=== PATIENT | female | born 1940 | race Caucasian/White ===

== ENCOUNTER 2017-06-02 19:02 | Inpatient (IN) | payer MEDICARE, BC, OTHER ==
[~2017-06-02] VITALS: Ht 162.6 cm; Wt 91.8 kg
[~2017-06-02 19:02] MED LIST: /CELE20CA PO; /ROPI5TA PO; ACET500C PO; CALCIUM/VIT D PO; CELE20TA PO; CHLORTHALIDONE PO; COZA25TA8 PO; DICY10CA2 PO; GLIM1TAB PO; JANUVIA PO; K-TA10TA PO; OMEP20TA7 PO; PREG100CA PO
[2017-06-02] MEDS ORDERED: GLIM2TAB PO (19:33)
[2017-06-02] MEDS ORDERED: KEFL500C17 PO (19:33)
[2017-06-02] MEDS ORDERED: ATOR1TAB21 PO (19:33)
[2017-06-02] MEDS ORDERED: PREG100CA PO (19:33)
[2017-06-02] MEDS ORDERED: LEVOPOW56 XX (19:33)
[2017-06-02] MEDS ORDERED: OMEP40CA2 PO (19:33)
[2017-06-02] MEDS ORDERED: LISI2.5T4 GT (19:33)
[2017-06-02] MEDS ORDERED: LASI40TA PO (19:33)
[2017-06-02] MEDS ORDERED: LANTINJ4 SC (19:33)
[2017-06-02] MEDS ORDERED: SING10TA32 PO (19:33)
[2017-06-02] MEDS ORDERED: K-TA10TA2 PO (19:34)
[2017-06-02] MEDS ORDERED: ACETAMINOPHEN TAB 650MG DOSE (2X325MG) PO ONE (20:15)
[2017-06-02 20:25] LABS: BASO % 0.1 % (0.0-1.0); EOS % 0.6 % (0.0-3.0); IMMATURE GRANULOCYTE % 0.6 % (0-0); LYMPH # 1.5 10^3/uL (1.5-4.5); LYMPH % 21.2 % (24.0-44.0); MEAN CORPUSCULAR HEMOGLOBIN 27.2 pg (27.0-33.0); MEAN CORPUSCULAR HGB CONC 32.2 g/dl (32.0-36.5); MEAN CORPUSCULAR VOLUME 84.5 fl (80.0-96.0); MONO # 0.6 10^3/uL (0.0-0.8); MONO % 8.6 % (0.0-5.0); NEUTROPHILS # 4.8 10^3/uL (1.8-7.7); NEUTROPHILS % 68.9 % (36.0-66.0); PLATELET COUNT, AUTOMATED 136 10^3/uL (150-450); RED CELL DISTRIBUTION WIDTH 15.2 % (11.5-14.5)
[2017-06-02 20:42] LABS: ALBUMIN 3.5 GM/DL (3.2-5.2); ALBUMIN/GLOBULIN RATIO 1.17 (1.00-1.93); ALKALINE PHOSPHATASE 69 U/L (45-117); ALT/SGPT 21 U/L (12-78); ANION GAP 9 MEQ/L (8-16); AST/SGOT 19 U/L (7-37); BILIRUBIN,DIRECT 0.2 MG/DL (0.0-0.2); BILIRUBIN,TOTAL 0.6 MG/DL (0.2-1.0); BLOOD UREA NITROGEN 13 MG/DL (7-18); CALCIUM LEVEL 8.1 MG/DL (8.8-10.2); CARBON DIOXIDE LEVEL 27 MEQ/L (21-32); CHLORIDE LEVEL 101 MEQ/L (98-107); CREATININE FOR GFR 0.95 MG/DL (0.55-1.02); GLOMERULAR FILTRATION RATE > 60.0 (>39); GLUCOSE, FASTING 218 MG/DL (83-110); POTASSIUM SERUM 4.1 MEQ/L (3.5-5.1); SODIUM LEVEL 137 MEQ/L (136-145); TOTAL PROTEIN 6.5 GM/DL (6.4-8.2)
--- NOTE | 2017-06-02 21:30 | REPUSA ---
CLINICAL HISTORY: Headache COMPARISON: No study for comparison is available at the time of interpretation. Total DLP of head and C-spine 1085.5 mGy*cm. TECHNIQUE: Head CT without contrast Brain: There is moderate diffuse parenchymal atrophy. There is deep white matter low attenuation cons istent with small vessel ischemic change, right frontal greater than left. No intracranial hemorrhage , hydrocephalus, acute parenchymal edema or evident mass. Calvarium: No depressed fractures. Sinuses (partially visualized): No hemorrhage fluid levels. Intracranial vessels: Atherosclerotic calcification of the anterior circulation. IMPRESSION: Chronic changes of small vessel ischemic disease, without intracranial hemorrhage.
--- NOTE | 2017-06-02 21:40 | REPUSA ---
HISTORY: Neck pain. COMPARISON: No relevant comparison is available at the time of interpretation. CT C-SPINE WITH REFORMATIONS: Total DLP head and C-spine 1085.5 mGy*cm C1 through T1: Neural rings intact without fracture. Dens intact. Central canal: Cervical spondylosis which produces chronic narrowing of the central canal and neural foramina. Alignment (by reformations): Grade 1 anterolisthesis of C4 due to facet arthrosis. C1-2: There is thickening of atlantoaxial ligaments and cartilage with the appearance of arthritic hy pertrophy. C2-3: Right facet arthrosis produces mild neural foraminal narrowing. C3-4: Uncovertebral osteophytes and facet arthrosis produce severe left and moderate right neural for aminal encroachment. C4-5: Facet arthrosis and degenerative disc disease produce mild grade 1 anterolisthesis with severe left and moderate right neural foraminal encroachment. C5-6: Uncovertebral osteophytes and facet arthrosis produce severe left and moderate right neural for aminal encroachment. C6-7: Uncovertebral osteophytes and facet arthrosis produce severe bilateral neural foraminal encroac hment. C7-T1: Facet arthrosis produces mild bilateral neural foraminal encroachment IMPRESSION: Degenerative spondylosis produces multilevel neural foraminal encroachment, more pronounc ed at C3-4, C4-5, C5-6 and C6-7 without acute fracture.
[2017-06-02] MEDS ORDERED: ONDANSETRON 4MG/2ML VIAL (J2405) IV ONE (22:00)
[2017-06-02] MEDS: MORPHINE 4 MG/ML 1ML SYRINGE IV PRN ×2 (22:01→23:19)
[2017-06-02] MEDS ORDERED: VANCOMYCIN HCL 1,000 MG, VIAL MATE ADAPTER 1 EACH in D5W 250 ML IV ONE (23:15)
[2017-06-02] MEDS ORDERED: diphenhydrAMINE INJ 50MG/ML VIAL (J1200) IV ONE (23:15)
[2017-06-02] MEDS ORDERED: cefTRIAXone SOD 1 GM in D5W 50 ML IV ONE (23:15)
[2017-06-02] MEDS ORDERED: ACYCLOVIR 1,000 MG in D5W 250 ML IV ONE (23:15)
[2017-06-02] MEDS ORDERED: AMPICILLIN SOD 1 GM in D5W 50 ML IV ONE (23:15)
[2017-06-02] MEDS ORDERED: JANU100T PO (23:21)
[2017-06-03] MEDS ORDERED: LISI2.5T3 PO (00:13)
[2017-06-03] MEDS ORDERED: INSULADS INJ (00:13)
[2017-06-03] MEDS ORDERED: OXYC1TAB23 PO (00:13)
[2017-06-03] MEDS ORDERED: MECL-68 PO (00:13)
[2017-06-03] MEDS ORDERED: POTA10CA PO (00:13)
[2017-06-03] MEDS ORDERED: JANU100T PO (00:13)
[2017-06-03] MEDS ORDERED: VITA500T3 PO (00:13)
[2017-06-03] MEDS ORDERED: GLIM2TAB PO (00:13)
[2017-06-03] MEDS ORDERED: FURO40TA2 PO (00:13)
[2017-06-03] MEDS ORDERED: PREG100CA PO (00:13)
[2017-06-03] MEDS ORDERED: CELE20TA PO (00:13)
[2017-06-03] MEDS ORDERED: OMEP20CA3 PO (00:13)
[2017-06-03] MEDS ORDERED: ATOR1TAB19 PO (00:13)
[2017-06-03] MEDS ORDERED: ARTI99.0 OU (00:13)
[2017-06-03] MEDS ORDERED: MONT10TA2 PO (00:13)
[2017-06-03] MEDS ORDERED: XYZA5TAB2 PO (00:13)
[2017-06-03] MEDS ORDERED: REQU1TAB15 PO (00:13)
[2017-06-03] MEDS ORDERED: TYLE1TAB5 PO (00:13)
[2017-06-03] MEDS ORDERED: ONDANSETRON 4MG/2ML VIAL (J2405) IV PRN (02:15)
[2017-06-03] MEDS ORDERED: MECLIZINE 25 MG TABLET PO PRN (02:15)
[2017-06-03] MEDS ORDERED: POLYVINYL ALCOHOL OPHTH SOLN 15 ML(LIQUITEARS) OU PRN (02:15)
[2017-06-03 03:00] VITALS: BP 150/69
[2017-06-03] MEDS: MORPHINE 4 MG/ML 1ML SYRINGE IV PRN ×5 (03:22→23:12)
[2017-06-03] MEDS: NS 1,000 ML IV SCH ×3 (03:45→17:12)
[2017-06-03] MEDS: PERCOCET 5MG/325MG TAB PO PRN ×2 (05:11→13:48)
[2017-06-03 06:00] VITALS: BP 131/64
[2017-06-03 06:31] LABS: MEAN CORPUSCULAR HGB CONC 31.8 g/dl (32.0-36.5); MEAN CORPUSCULAR VOLUME 84.7 fl (80.0-96.0); PLATELET COUNT, AUTOMATED 118 10^3/uL (150-450); RED CELL DISTRIBUTION WIDTH 15.1 % (11.5-14.5); WHITE BLOOD COUNT 5.7 10^3/uL (4.0-10.0)
[2017-06-03 06:57] LABS: ANION GAP 7 MEQ/L (8-16); BLOOD UREA NITROGEN 12 MG/DL (7-18); CARBON DIOXIDE LEVEL 28 MEQ/L (21-32); CHLORIDE LEVEL 99 MEQ/L (98-107); CREATININE FOR GFR 0.94 MG/DL (0.55-1.02); GLOMERULAR FILTRATION RATE > 60.0 (>39); GLUCOSE, FASTING 259 MG/DL (83-110); POTASSIUM SERUM 3.6 MEQ/L (3.5-5.1); SODIUM LEVEL 134 MEQ/L (136-145)
--- NOTE | 2017-06-03 07:41 | REP ---
Lumbar spine three views: Comparison is 09/23/2006. There are bilateral laminectomies with pedicle screws and stabilization rods spanning L3, L4, L5 and S1. There is no fracture or displacement of the pedicle screws or stabilization rods. There is mild lumbar scoliosis convex left. Vertebral body heights and alignment are normal. There is degenerative disc disease at every lumbar level. There is no change from the comparison study except that the previous surgical drain has been removed. Impression: No change from the prior study except that the previous surgical drain been removed Signed by Quinten Belcher MD 06/03/2017 07:33 A
--- NOTE | 2017-06-03 07:43 | REP ---
A PA and lateral chest the patient upright: Comparison is 03/30/2017. There is an incomplete inspiratory effort with under aeration of the lung abrams. There are no focal infiltrates or effusions. There is cardiomegaly, unchanged. The farhana, mediastinum, and bony thorax are unremarkable. Impression: Incomplete inspiratory effort. Cardiomegaly, unchanged. No Signed by Quinten Belcher MD 06/03/2017 07:34 A
[2017-06-03] MEDS: FUROSEMIDE 40 MG TAB PO SCH (08:36)
[2017-06-03] MEDS: PREGABALIN 100 MG CAP (LYRICA) PO SCH ×3 (08:36→21:31)
[2017-06-03] MEDS: CYANOCOBALAMIN 500 MCG TAB PO SCH (08:36)
[2017-06-03] MEDS: CitaloPRAM (CeleXA) 20 MG TAB PO SCH (08:37)
[2017-06-03] MEDS: LISINOPRIL *2.5 MG* TAB PO SCH (08:37)
[2017-06-03] MEDS: OMEPRAZOLE 20 MG CAP PO SCH (08:37)
[2017-06-03] MEDS: POTASSIUM CHLORIDE 10 MEQ SR TABLET PO SCH ×2 (08:37→21:31)
[2017-06-03] MEDS: LEVEMIR (INSULIN DETEMIR) 1 UNITS/0.01ML SC SCH (08:38)
[2017-06-03] MEDS ORDERED: cefTRIAXone SOD 2 GM VIAL (J0696) IM SCH (09:00)
[2017-06-03] MEDS ORDERED: SITagliptin 50 MG TAB (JANUVIA) PO SCH (09:00)
[2017-06-03] MEDS ORDERED: GLIMEPIRIDE 2 MG TAB PO SCH (09:00)
[2017-06-03] MEDS ORDERED: HEPARIN SOD (PORCINE) 5000 UNITS/ML VIAL SQ SCH (09:00)
--- NOTE | 2017-06-03 09:29 | HPEPDOC ---
General Date of Admission Jun 03, 2017 at 02:12 Primary Care Physician: MARIANNA ESTES DO Attending Physician: LILIAN GATES DO Chief Complaint The patient is a 76-year-old female admitted with a reason for Meningeal Pain. Source: Patient Exam Limitations: No limitations History of Present Illness 76f h/o HTN, DM2, anxiety, GERD, RLS, BPPV, hypothyroidism a/w neck pain x1 day. Pt reports that she was feeling well but the over the last week she noted generalized malaise and decreased appetite. This persisted until the day prior to admit when she noted neck pain/stiffness, that prevented her from gettting out of the bed the night prior admit. She says that her grandson had to help her sit up, due to the pain in her neck. The following day, this continued and was associated with photophobia and n/v. Pt's neck pain progressed until pt was brought by her neighbor to ED. In the ED, her neighbor reported that the pt was also slightly confused and exam was positive for Kernig's sign. Pt started on empiric tx for meningitis. She denied sick contacts, fever/chills, rash, recent travel. She did report photophobia, neck stiffness, n/v. She also reported that she got a tattoo last wk on her R forearm and that it was slightly inflamed, and that her R thumb MCP joint was swollen, which has not happened in the past. Home Medications Scheduled (Tylenol Pm Extra Strength 500-25 mg) 1 Tab Tab, 2 TAB PO QHS, (Reported) Atorvastatin Calcium (Atorvastatin Calcium) 10 Mg Tab, 10 MG PO QHS, (Reported) Citalopram Hydrobromide (Celexa) 20 Mg Tab, 20 MG PO DAILY, (Reported) Cyanocobalamin (Vitamin B-12) 500 Mcg Tab, 500 MCG PO DAILY, (Reported) Furosemide (Furosemide) 40 Mg Tab, 40 MG PO DAILY, (Reported) Glimepiride (Glimepiride) 2 Mg Tab, 2 MG PO DAILY, (Reported) Insulin Glargine (Lantus) 100 Unit/Ml Inj, 40 UNIT INJ DAILY, (Reported) Levocetirizine Dihydrochloride (Xyzal) 5 Mg Tab, 5 MG PO QHS, (Reported) Lisinopril (Lisinopril) 2.5 Mg Tab, 2.5 MG PO DAILY, (Reported) Montelukast Sodium (Montelukast Sodium) 10 Mg Tab, 10 MG PO QHS, (Reported) Omeprazole (Omeprazole) 20 Mg Cap, 20 MG PO DAILY, (Reported) Potassium Chloride (Klor-Con M10) 10 Meq Tabcr, 10 MEQ PO BID, (Reported) Pregabalin (Lyrica) 100 Mg Cap, 100 MG PO TID, (Reported) Ropinirole Hydrochloride (Requip) 0.5 Mg Tab, 0.5 MG PO QHS, (Reported) Sitagliptin Phosphate (Januvia) 100 Mg Tab, 100 MG PO DAILY, (Reported) Scheduled PRN Artificial Tears (Artificial Tears) 1.4 % Nova, 1 DROP OU QID PRN for DRY EYES, ( Reported) Meclizine HCl (Meclizine HCl) 25 Mg Tab, 25 MG PO Q8H PRN for VERTIGO/DIZZINESS, (Reported) Oxycodone/Acetaminophen (Oxycodone/Acetaminophen 5-325 mg) 1 Tab Tab, 1 TAB PO TID PRN for PAIN, (Reported) Allergies Coded Allergies: Cephalosporins (Verified Allergy, Intermediate, RASH FROM HEAD TO TOE, 10/28) Epinephrine (Verified Allergy, Unknown, 10/28/12) Lidocaine (Verified Allergy, Unknown, 10/28/12) Penicillins (Verified Allergy, Unknown, 01/16/15) TAPE (Verified Allergy, Unknown, 01/16/15) Past Medical History Medical History 1. HTN 2. DM2 3. Hyperlipidemia 4. RLS 5. Anxiety 6. GERD 7. Hypothyroidism 8. BPPV Surgical History 1. Cataract surgery 2. Cardiac Cath 3. Cholecystectomy 4. Appendectomy 5. ALESSANDRA 6. Bladder suspension 7. x2 8. R knee arthroscopy Family History Significant Family History: No pertinent family hx Social History * Smoker: Denies Recent Travel/Sick Contacts: Denies: Recent travel, Recent sick contacts Psychosocial History: No pertinent psych hx Review of Symptoms Constitutional: Reports: Malaise, Denies: Chills, Fever, Night Sweats Eyes: Reports: Pain, Denies: Eyelid inflammation ENT: Reports: Head Aches, Denies: Ear Pain, Dysphagia Skin: Reports: Other (R forearm tattoo.), Denies: Rash, Lesions, Jaundice Pulmonary: Denies: Dyspnea, Cough, Pleuritic Chest Pain Cardiovascular: Denies: Chest Pain, Palpitations, Orthopnea Gastrointestinal: Reports: Nausea, Vomiting, Diarrhea (Loose but not watery stool.), Denies: Abdominal Pain Genitourinary: Denies: Dysuria, Frequency, Incontinence Hematologic: Denies: Bruising, Bleeding Excessively, Petecchia, Purpura Endocrine: Denies: Polydipsia, Polyphagia, Polyuria Musculoskeletal: Reports: Neck Pain, Joint Pain (R thumb), Denies: Back Pain Neurological: Denies: Weakness, Numbness, Change in speech, Confusion Psych: Reports: Mood Normal Physical Examination General Exam: Positive: Alert, Cooperative, Mild Distress Eye Exam: Positive: Conjunctiva & lids normal, Negative: Sclera icteric ENT Exam: Positive: Atraumatic, Mucous membr. moist/pink, Pharynx Normal Neck Exam: Negative: Supple (Stiff neck), JVD, thyromegaly Chest Exam: Positive: Clear to auscultation, Normal air movement, Negative: Rales, Rhonchi, Wheezing Heart Exam: Positive: Rate Normal, Regular Rhythm, Normal S1, Normal S2, Negative: Gallops, Murmurs, Rubs Abdomen Exam: Positive: Normal bowel sounds, Soft, Negative: Tenderness, Hepatospenomegaly Extremity Exam: Negative: Clubbing, Cyanosis, Edema Skin Exam: Positive: Nl turgor and temperature, Negative: Rash Neuro Exam: Positive: Normal Gait, Normal Speech, Cranial Nerves 3-12 NL Psych Exam: Positive: Mental status NL, Mood NL, Oriented x 3 Vital Signs Vital Signs Date Time Temp Pulse Resp B/P (MAP) Pulse Ox O2 Delivery O2 Flow Rate FiO2 06/03/17 08:37 120/53 06/03/17 08:33 20 Room Air 06/03/17 06:00 97.8 77 92 06/03/17 01:10 2.0 Laboratory Data Labs 24H Laboratory Tests 2 06/02/17 20:10: Immature Granulocyte % (Auto) 0.6H, White Blood Count 7.0, Red Blood Count 4.12 , Hemoglobin 11.2L, Hematocrit 34.8L, Mean Corpuscular Volume 84.5, Mean Corpuscular Hemoglobin 27.2, Mean Corpuscular Hemoglobin Concent 32.2, Red Cell Distribution Width 15.2H, Platelet Count 136L, Neutrophils (%) (Auto) 68.9H, Lymphocytes (%) (Auto) 21.2L, Monocytes (%) (Auto) 8.6H, Eosinophils (%) (Auto) 0.6, Basophils (%) (Auto) 0.1, Neutrophils # (Auto) 4.8, Lymphocytes # (Auto) 1.5, Monocytes # (Auto) 0.6, Eosinophils # (Auto) 0.0, Basophils # (Auto) 0.0, Immature Granulocyte # (Auto) 0.0, Nucleated Red Blood Cells % (auto) 0.0, Anion Gap 9, Glomerular Filtration Rate > 60.0, Lactic Acid Level 1.4, Calcium Level 8.1L, Aspartate Amino Transf (AST/SGOT) 19, Alanine Aminotransferase (ALT/ SGPT) 21, Alkaline Phosphatase 69, Total Bilirubin 0.6, Direct Bilirubin 0.2, C- Reactive Protein, Quantitative 7.80H, Total Protein 6.5, Albumin 3.5, Albumin/ Globulin Ratio 1.17 06/02/17 22:41: Urine Appearance HAZY, Urine Color YELLOW, Urine pH 5.0, Urine Specific Ermine 1.025, Urine Protein NEGATIVE, Urine Glucose (UA) 1+H, Urine Ketones TRACEH, Urine Urobilinogen 2.0H, Urine Bilirubin NEGATIVE, Urine Leukocyte Esterase 1+H , Urine Blood NEGATIVE, Urine Nitrite NEGATIVE, Urine WBC (Auto) 11H, Urine RBC (Auto) 1, Urine Hyaline Casts (Auto) 0, Urine Bacteria (Auto) NEGATIVE, Urine Squamous Epithelial Cells 1, Urine Mucus (Auto) SMALL, Urine Sperm (Auto) 06/03/17 06:17: Nucleated Red Blood Cells % (auto) 0.0, Anion Gap 7L, Glomerular Filtration Rate > 60.0, Calcium Level 8.0L, Estimated Mean Plasma Glucose 252H, Hemoglobin A1c 10.4, Blood Urea Nitrogen 12, Creatinine 0.94, Sodium Level 134L, Potassium Level 3.6, Chloride Level 99, Carbon Dioxide Level 28 CBC/BMP Laboratory Tests 06/02/17 20:10 Red Blood Count 4.12, Mean Corpuscular Volume 84.5, Mean Corpuscular Hemoglobin 27.2, Mean Corpuscular Hemoglobin Concent 32.2, Red Cell Distribution Width 15.2 H, Neutrophils (%) (Auto) 68.9 H, Lymphocytes (%) (Auto) 21.2 L, Monocytes (%) (Auto) 8.6 H, Eosinophils (%) (Auto) 0.6, Basophils (%) (Auto) 0.1, Neutrophils # (Auto) 4.8, Lymphocytes # (Auto) 1.5, Monocytes # (Auto) 0.6, Eosinophils # (Auto) 0.0, Basophils # (Auto) 0.0 06/03/17 06:17 Red Blood Count 3.67 L, Mean Corpuscular Volume 84.7, Mean Corpuscular Hemoglobin 27.0, Mean Corpuscular Hemoglobin Concent 31.8 L, Red Cell Distribution Width 15.1 H, Calcium Level 8.0 L Microbiology Microbiology 06/02/17 Blood Culture, Received Pending 06/02/17 Respiratory Virus Panel (PCR) ([facility]) - Final, Complete 06/02/17 Urine Culture, Received Pending Assessment/Plan 76f h/o HTN, DM2, anxiety, GERD, RLS, BPPV, hypothyroidism a/w neck pain, photophobia and meningeal signs. Plan Plan 1 Neck pain/stiffness with meningeal signs-Meningitis bacterial v viral At this time, pt shows signs of meningitis c/w viral meningitis While she did have recent tattoo 1wk prior and R thumb pain, the time course between when these happened and when her neck stiffness started go against an acute bacterial meningitis Additionally, pt is in pain, but not toxic and does not show any of the stigmata of meningococcal meningitis Would continue iv ampicillin 2gm q4h, ceftriaxone 2gm daily, 1gm vanc bid, and 1gm acyclovir q8h Pt's hx of spinal fusion of her lumbar vertebrae prevented LP overnight, and at this point would continue empiric tx. f/u wbc, fever curve and cx's 2 HTN Continue lasix Continue lisinopril 3 DM2 Continue glimeperide Continue levemir 40U daily (substituted for lantus 40U) FS with coverage 4 BPPV Continue prn meclizine 5 RLS Continue ropinirole Continue lyrica 8 GERD Continue ppi 9 Asthma Continue singulair 10 DVT prophylaxis Heparin sq Farhan Arteaga MD Jun 03, 2017 09:29
[2017-06-03 09:30] VITALS: BP 139/61
[2017-06-03] MEDS ORDERED: AMPICILLIN SOD 2 GM in D5W MINI-BAG PLUS 100 ML IV SCH (10:00)
[2017-06-03] MEDS ORDERED: cefTRIAXone SOD 2 GM in D5W 50 ML IV SCH (11:00)
[2017-06-03] MEDS ORDERED: GLUCAGON FOR INJ 1 MG VIAL (J1610) SC PRN (12:45)
[2017-06-03] MEDS ORDERED: DEXTROSE 50% 50 ML SYRINGE IV PRN (12:45)
[2017-06-03] MEDS ORDERED: GLUCOSE 4 GM CHEW TABLET PO PRN (12:45)
[2017-06-03] MEDS: NS IV SCH ×2 (12:58→19:57)
[2017-06-03] MEDS: ACYCLOVIR IV SCH ×2 (12:58→19:57)
[2017-06-03 13:14] LABS: INR 1.24
--- NOTE | 2017-06-03 14:31 | PHACANCOPD ---
PHARMACY VANCOMYCIN DOSING Pt Demographics Demographics Patient Age:76 , Weight:91.800 , Gender: female Adjusted Body Weight Date: 06/03/17, Adjusted Body Weight: Kg Events Past 24 Hours Events Past 24 Hours: YES: Other, NO: Dialysis, Diuretic Therapy, Change in CrCl, Fever, Elevation in WBC, Pending Diagnostics, Pending Procedures Vancomycin Vancomycin Target Ranges: 15-20 mcg/ml Vancomycin Load Y/N: Yes Load Dose Date Time Vancomycin Load Dose: 2G Date: 06/03/17 Time:1500 Vancomycin Dose Date: 06/03/17. Current Vancomycin Dose: [1G Q12H@1500] Intermittent Dosing?: No Labs Labs Vital Signs Label Value Date Time Patient Temperature 97.8 degrees F 06/03/17 0600 Temperature Source Temporal 06/03/17 0600 Patient Temperature 97.8 degrees F 06/03/17 0300 Temperature Source Temporal 06/03/17 0300 Item Value Date Time White Blood Count 7.0 10^3/uL 06/02/172009 White Blood Count 5.7 10^3/uL 06/03/17616 Creatinine 0.95 MG/DL 06/02/172009 Creatinine 0.94 MG/DL 06/03/17616 Micro Microbiology 06/02/17 Blood Culture, Received Pending 06/02/17 Respiratory Virus Panel (PCR) ([facility]) - Final, Complete 06/02/17 Urine Culture, Received Pending Creatinine Clearance Date:06/03/17. Creatinine Clearance: . Assessment and Plan Maintaining Current Dose?: Yes Reason for dose change: No Dose Change Pharmacist Note Pharmacist Note Date: 06/03/17. Pharmacist note: Pt. presented to the ED with signs of stiff neck /rigidity and severe headache. Pt. was recently being treated for cellulitis after receiving a tattoo a few weeks prior. Pt. has no history of MRSA at our facility. She is being treated for possible informatics pharmacist infection. Pt. has no fever and WBC are WNL. She received 1G of Vanco in the ED @0400. Now as an admit we are continuing Vanco with a 2G loading dose (1G@1500, 1G@1600), followed by 1G Q12H at 0300. I have scheduled a trough for tomorrow at 1400. We will continue to monitor and adjust dose as needed. [facility] Jun 03, 2017 14:31
[2017-06-03] MEDS ORDERED: VANCOMYCIN HCL 1,000 MG in D5W 0 ML IV SCH (15:00)
[2017-06-03] MEDS ORDERED: VANCOMYCIN HCL 1,000 MG, VIAL MATE ADAPTER 1 EACH in D5W 250 ML IV ONE (16:00)
[2017-06-03] MEDS ORDERED: VANCOMYCIN HCL 1,000 MG in D5W 0 ML IV ONE (16:00)
[2017-06-03] MEDS ORDERED: CHLOROPROCAINE 2 % INJ PRES.FREE 20 ML VIAL (J2400) SQ ONE (16:00)
[2017-06-03] MEDS: VANCOMYCIN HCL 1,000 MG, VIAL MATE ADAPTER 1 EACH in D5W 250 ML IV SCH (17:05)
[2017-06-03 17:15] VITALS: BP 113/57
[2017-06-03 17:25] LABS: GLUCOSE CSF 120 MG/DL (40-75)
[2017-06-03] MEDS ORDERED: IBUPROFEN 600 MG TAB PO PRN (17:30)
[2017-06-03 17:47] LABS: APPEARANCE, CSF CLEAR (CLEAR); COLOR, CSF COLORLESS (COLORLESS); CSF DIFF IF INDICATED? NO (NO); CSF TUBE# CELL CNT TUBE 4
[2017-06-03 17:53] LABS: URIC ACID 6.6 MG/DL (2.6-6.0)
--- NOTE | 2017-06-03 18:03 | REP ---
FLUORO GUIDANCE FOR LUMBAR PUNCTURE: The procedure was performed under the personal supervision of Dr. New. The risks and benefits of the procedure were explained to the patient and informed consent was obtained. The L3-4 interspace was localized using fluoroscopic guidance. The skin was prepped and draped in a sterile fashion. 2% chloroprocaine was used a local anesthetic. Using fluoroscopic guidance a 22-gauge spinal needle was inserted and advanced. The inner stylet was removed and there was fluid coming out the hub of the needle. Approximately 3 mL of viscous yellow-colored fluid was withdrawn. This likely represents the needle to be in a postsurgical seroma. The fluid was sent for culture, sensitivity and gram stain. The needle was then advanced further into the thecal sac and approximately 7.5 mL of spinal fluid was withdrawn and sent to the lab. The patient tolerated the procedure well and there were no immediate complications. 0.2 minutes of fluoroscopy time was utilized for this procedure. Reviewed by CHAS Blanco 06/04/2017 05:18 PEdited and Signed by Marcelino New MD 06/04/2017 05:35 P
[2017-06-03 18:15] VITALS: BP 124/86
[2017-06-03] MEDS: HumaLOG INSULIN (NovoLOG) PER UNIT SC SCH ×2 (18:28→21:00)
[2017-06-03] MEDS: LORazepam 2 MG/ML VIAL (J2060) IV PRN (19:58)
[2017-06-03] MEDS: MONTELUKAST 10 MG TAB PO SCH (21:29)
[2017-06-03] MEDS: ATORVASTATIN 10 MG TAB PO SCH (21:31)
[2017-06-03] MEDS: rOPINIRole 0.25 MG TAB(REQUIP) PO SCH (21:31)
[2017-06-03 22:00] VITALS: BP 140/78
[2017-06-03] MEDS: cefTRIAXone SOD 2 GM in D5W 50 ML IV SCH (23:13)
[2017-06-04] MEDS: PERCOCET 5MG/325MG TAB PO PRN ×3 (00:19→18:46)
[2017-06-04] MEDS: VANCOMYCIN HCL 1,000 MG, VIAL MATE ADAPTER 1 EACH in D5W 250 ML IV SCH (03:03)
[2017-06-04] MEDS: MORPHINE 4 MG/ML 1ML SYRINGE IV PRN (04:57)
[2017-06-04] MEDS: NS 1,000 ML IV SCH ×4 (05:55→21:39)
[2017-06-04 06:00] VITALS: BP 121/57
[2017-06-04 06:37] LABS: MEAN CORPUSCULAR HEMOGLOBIN 27.2 pg (27.0-33.0); MEAN CORPUSCULAR HGB CONC 31.8 g/dl (32.0-36.5); MEAN CORPUSCULAR VOLUME 85.6 fl (80.0-96.0); PLATELET COUNT, AUTOMATED 119 10^3/uL (150-450); RED CELL DISTRIBUTION WIDTH 15.1 % (11.5-14.5); WHITE BLOOD COUNT 6.4 10^3/uL (4.0-10.0)
[2017-06-04] MEDS: LORazepam 2 MG/ML VIAL (J2060) IV PRN (06:49)
[2017-06-04 06:54] LABS: ERYTHROCYTE SEDIMENTATION RATE 58 mm/hr (0-30)
[2017-06-04 06:56] LABS: CALCIUM LEVEL 7.5 MG/DL (8.8-10.2); CREATININE FOR GFR 1.06 MG/DL (0.55-1.02); GLOMERULAR FILTRATION RATE 53.5 (>39); POTASSIUM SERUM 3.9 MEQ/L (3.5-5.1)
[2017-06-04] MEDS: HumaLOG INSULIN (NovoLOG) PER UNIT SC SCH ×5 (07:30→21:00)
[2017-06-04] MEDS: PREGABALIN 100 MG CAP (LYRICA) PO SCH ×3 (08:55→21:03)
[2017-06-04] MEDS: CYANOCOBALAMIN 500 MCG TAB PO SCH (08:55)
[2017-06-04] MEDS: FUROSEMIDE 40 MG TAB PO SCH (08:56)
[2017-06-04] MEDS: CitaloPRAM (CeleXA) 20 MG TAB PO SCH (08:56)
[2017-06-04] MEDS: POTASSIUM CHLORIDE 10 MEQ SR TABLET PO SCH ×2 (08:56→21:03)
[2017-06-04] MEDS: LISINOPRIL *2.5 MG* TAB PO SCH (08:56)
[2017-06-04] MEDS: OMEPRAZOLE 20 MG CAP PO SCH (08:56)
[2017-06-04] MEDS: LEVEMIR (INSULIN DETEMIR) 1 UNITS/0.01ML SC SCH (08:57)
[2017-06-04] MEDS: COLCHICINE 0.6 MG TAB PO SCH ×2 (09:00→21:03)
[2017-06-04] MEDS: cefTRIAXone SOD 2 GM in D5W 50 ML IV SCH ×2 (10:36→23:29)
[2017-06-04 14:00] VITALS: BP 110/46
--- NOTE | 2017-06-04 14:27 | IPNPDOC ---
Date Seen The patient was seen on 06/04/17. Progress Note SUBJECTIVE: Patient is a 76 yo female seen at bedside. Still c/o h/a, neck stiffness and left thumb pain. I noticed her Uric acid, crp, ESR were elevated. OBJECTIVE PHYSICAL EXAMINATION: VITAL SIGNS: Please see below. GENERAL: NAD, A&O HEENT: PERRLA, Neck stiff, no adenopathy CARDIOVASCULAR: RRR, Holosystolic murmur. . RESPIRATORY: CTA Bilaterally. ABDOMINAL: soft, NT/ND, NORMOACTIVE BS EXTREMITIES: LEFT THUMB PAIN AND SWELLING NEUROLOGICAL: CN II-XII GROSSLY INTACT PSYCHOLOGICAL: NEGATIVE LABORATORY DATA: Please see below. MICROBIOLOGY: Please see below. Echocardiogram: PENDING R/O ENDOCARDITIS BRAIN AND CERVICAL SPINE MRI: PENDING. DVT prophylaxis ordered?: YES ASSESSMENT AND PLAN: This is a 76 yo female seen at bedside still with neck pain /stiffness and headache. PROBLEMS: 1. Neck pain/stiffness with meningeal signs-Meningitis bacterial v viral CSF fluid showed positive protein. Cultures pending. Spoke to Dr. Ryder and lyme titer pending as well. Antibioutics have be de-escalated to rocephin (Vanco, ampicillin and acyclovir have been d/c) 2. Elevated ESR and CRP / ? vegetative valvular disease findings on 2-D Echo needing to r/o endocarditis. Will need scheduled for DANIELLE. 3. HTN Continue lasix Continue lisinopril 4. DM2 Continue glimeperide Continue levemir 40U daily (substituted for lantus 40U) FS with coverage 5. BPPV Continue prn meclizine 6. RLS Continue ropinirole Continue lyrica 7. GERD Continue ppi 8. Asthma Continue singulair 9. DVT prophylaxis Heparin sq 10. Left thumb pain and swelling: possible gout, will start colchicine. DISPOSITION: appreciate Dr. Ryder's input regarding possible meningitis. Awaiting further eval with Brain and Cervical MRI. VS, I&O, 24H, Fishbone Vital Signs/I&O Vital Signs Date Time Temp Pulse Resp B/P (MAP) Pulse Ox O2 Delivery O2 Flow Rate FiO2 06/04/17 11:46 20 06/04/17 08:56 113/55 06/04/17 06:00 98.2 80 90 Room Air 06/03/17 01:10 2.0 I&O- Last 24 Hours up to 6 AM 06/05/17 06:00 Intake Total 0 ml Output Total 250 ml Balance -250 ml Laboratory Data 24H LABS Laboratory Tests 2 06/03/17 14:19: 06/03/17 16:00: CSF Appearance CLEAR, CSF Color COLORLESS, CSF WBC (Auto) 2, CSF RBC (Auto) < 2 , CSF Glucose (Tube 1) TUBE 2, CSF Total Protein (Tube 1) TUBE 2, CSF Cell Count Tube # TUBE 4, CSF Polynuclear WBCs (%) , CSF Glucose 120H, CSF Total Protein 79.7H 06/03/17 17:12: Bedside Glucose (Misc Panel) 220H 06/03/17 20:51: Bedside Glucose (Misc Panel) 187H 06/04/17 05:44: Nucleated Red Blood Cells % (auto) 0.0, Erythrocyte Sedimentation Rate 58H, Anion Gap 8, Glomerular Filtration Rate 53.5, Blood Urea Nitrogen 15, Creatinine 1.06H, Sodium Level 133L, Potassium Level 3.9, Chloride Level 99, Carbon Dioxide Level 26, Calcium Level 7.5L, C-Reactive Protein, Quantitative 13.00H 06/04/17 11:57: Bedside Glucose (Misc Panel) 215H 06/04/17 13:52: CBC/BMP Laboratory Tests 06/04/17 05:44 Red Blood Count 3.34 L, Mean Corpuscular Volume 85.6, Mean Corpuscular Hemoglobin 27.2, Mean Corpuscular Hemoglobin Concent 31.8 L, Red Cell Distribution Width 15.1 H, Calcium Level 7.5 L Microbiology Microbiology 06/03/17 Blood Culture, Received Pending 06/02/17 Blood Culture - Preliminary, Resulted No growth after 24 hours . All specim... 06/03/17 Gram Stain - Final, Resulted 06/03/17 CSF Culture, Resulted Pending 06/03/17 Gram Stain - Final, Resulted 06/03/17 CSF Culture, Resulted Pending 06/03/17 , Received Pending 06/02/17 Respiratory Virus Panel (PCR) ([facility]) - Final, Complete 06/02/17 Urine Culture - Final, Complete LILIAN GATES DO Jun 04, 2017 14:27
[2017-06-04] MEDS ORDERED: PROHANCE 279.3MG/ML 15ML VIAL (A9576) As Ordered ONE (15:18)
[2017-06-04] MEDS: MORPHINE 2 MG/ML 1ML SYRINGE IV PRN ×2 (16:34→21:34)
--- NOTE | 2017-06-04 16:50 | REP ---
MR BRAIN WITH AND WITHOUT CONTRAST: HISTORY: Headache. CONTRAST: ProHance 9 mL. COMPARISON: 05/06/2016. The examination is limited secondary to motion. Areas of increased signal intensity on T2 weighted images are present in the periventricular and subcortical white matter and meka. . This represents small vessel ischemic disease. There is no intraparenchymal hemorrhage, infarct, mass, or midline shift. The sella turcica is partially empty. There is no abnormal enhancement. The ventricular system and cortical sulci are dilated consistent with mild volume loss. There is no extracerebral collection. The sinuses are clear. IMPRESSION: 1. Small vessel ischemic disease. 2. Mild volume loss. Signed by Ryan Carrion MD 06/04/2017 05:08 P
--- NOTE | 2017-06-04 17:35 | REP ---
MR CERVICAL SPINE WITHOUT AND WITH CONTRAST: HISTORY: Headache. CONTRAST: ProHance 9 mL. The examination is limited secondary to motion. Facet hypertrophy is present on the right at the C2-3 level. This produces minimal narrowing of the right C2 neural foramen. The left C2 neural foramina is patent. A disc bulge with associated osteophyte formation is present at the C3-4 level. There is moderate effacement of the thecal sac without spinal cord compression. Bilateral uncinate process and facet hypertrophy are present. These findings produce mild and moderate narrowing of the right and left C3 neural foramina respectively. A disc bulge is present at the C4-5 level. There are 2 mm of anterior subluxation of C4 on 5. There is minimal spinal cord compression. Bilateral uncinate process and facet hypertrophy are present. These findings produce moderate narrowing of the C4 neural foramina. A disc bulge with associated osteophyte formation is present at the C5-6 level. There is moderate effacement of the thecal sac without spinal cord compression. Bilateral uncinate process and facet hypertrophy are present. These findings produce moderate and mild narrowing of the right and left C6 neural foramina respectively. A disc bulge with associate osteophyte formation is present at the C6-7 level. There is mild effacement of the thecal sac without spinal cord compression. Bilateral uncinate process and facet hypertrophy are present. These findings produce moderate and mild narrowing of the right and left C6 neural foramina respectively. There is no other disc bulge or herniation. There is hypertrophy of the posterior articulating facets at the C7-T1 level. This produces minimal narrowing of the C7 neural foramina. The remaining neural foramina are patent. The spinal cord is normal in signal intensity. There is no abnormal enhancement. C3-4 through C6-7 intervertebral discs are decreased in height consistent with disc degeneration. Normal signal intensity is present in the cervical vertebral bodies. IMPRESSION:Limited examination demonstrating cervical spondylosis at the C2-3 through C7-T1 levels, most significant at the C4-5 level where there is minimal spinal cord compression. Signed by Ryan Carrion MD 06/04/2017 05:42 P
[2017-06-04] MEDS: MONTELUKAST 10 MG TAB PO SCH (21:03)
[2017-06-04] MEDS: ATORVASTATIN 10 MG TAB PO SCH (21:03)
[2017-06-04] MEDS: rOPINIRole 0.25 MG TAB(REQUIP) PO SCH (21:04)
[2017-06-04 22:00] VITALS: BP 132/64
--- NOTE | 2017-06-04 22:08 | CR ---
DATE OF CONSULTATION: 06/03/2017 Asked to consult for neck pain, neck stiffness, and fever. HISTORY OF PRESENT ILLNESS: Lela 76-year-old pleasant female who came to the hospital with 1-day history of low-grade fever and severe neck pain with neck stiffness. The patient reports that she was feeling unwell. She has generalized malaise and decreased appetite for about a week. The patient the day of admission was having severe headache, neck pain, stiffness. She came to the emergency room. She could not get out of bed. Her grandson had to help her get up. She was also complaining of pain down to her left arm and some swelling of the thumb. She had some photophobia, nausea. and vomiting. Today the patient had a fluoroscopic-guided lumbar puncture, and the cerebrospinal fluid (CSF) fluid had only 2 white cells and 2 red cells with elevated glucose. The patient has been started on broad-spectrum antibiotic to cover for possible meningitis, including intravenous (IV) vancomycin, Rocephin, acyclovir, and ampicillin. The patient went to [place] to visit her daughter and had a tattoo on her the right forearm, which got inflamed. She took Keflex for 24 hours but then developed some stomach upset and did not take any further. She went to see her primary care provider, who did hepatitis A, B, and C testing as well as vitamin B12 level, which were low. The inflammation around the tattoo has resolved. It was in memory of her , who last year. The patient also complained of right thumb metacarpophalangeal (MCP) joint swelling, which never happened before. She has no history of rheumatoid arthritis, lupus, or gout. She denies history of heart murmur. PAST MEDICAL HISTORY: Significant for: 1. Hypertension. 2. Hyperlipidemia. 3. Diabetes, type 2. 4. Restless leg syndrome. 5. Anxiety. 6. History of esophageal reflux disease. 7. Benign positional right vertigo. 8. Hypothyroidism. PAST SURGICAL HISTORY: 1. Cataract surgery. 2. Cardiac catheterization, which was negative. 3. Cholecystectomy. 4. Appendectomy. 6. Total abdominal hysterectomy. 7. Bladder suspension. 8. section times two. 9. Right knee arthroscopy. FAMILY HISTORY: Nonrevealing. SOCIAL HISTORY: Her grandson lives with her. She drives. She has very supportive neighbors, including Dr. Glass, ophthalmology. She recently went on a cruise in November, following which she was sick all summer with pneumonia. She denies tobacco or alcohol use. REVIEW OF SYSTEMS: She complains of malaise. She had fevers, severe headache with neck stiffness. Some nausea and vomiting. She had loose stools, but that is normal for her. No abdominal pain. No dysuria or hematuria. She also states that she had a similar episode about a month prior to admission, which resolved after 2 weeks and was not as severe. PHYSICAL EXAMINATION: She is sick-looking female in moderate discomfort. She is very uncomfortable with the lights on. Maximal temperature was 100.5 yesterday, currently 98.4, pulse 85, respirations 18, blood pressure 124/86, oxygen saturation 92% on room air. Heart: Normal S1, S2 with a holosystolic ejection murmur, best heard at the left upper sternal border. No rubs or gallops. Lungs are clear. No wheezes, rales, or rhonchi. Abdomen is soft, nontender. No hepatosplenomegaly with healed scars. Back: No costovertebral angle (CVA) or lumbosacral tenderness . Extremities: No clubbing, cyanosis or edema. Neck is stiff. She is not able to bend to touch her chin to the ribs. Oropharynx is clear with no lesions. Pupils equal and reactive, anicteric. Neurologic: Alert and oriented times three. Moves all extremities but very uncomfortable. Musculoskeletal: Left thumb is swollen at the MCP joint. LABORATORY DATA: White count is 5.7, yesterday was 7, hemoglobin 9 [id number], which has dropped from yesterday at 136. Sodium 134, potassium 3.6, chloride 99, bicarbonate 28, BUN 12, creatinine 0.9, glucose 259, HbA1c 10.4. Uric acid is 6.6. Calcium 8. CRP 6.5-7.8, bilirubin 0.6 , AST 19, ALT 21, alkaline phosphatase 69. Hepatitis A, B, and C serology done earlier was negative. Rheumatoid factor is less than 10. DEL is pending but was done on May 17 and was negative. Blood cultures, two sets, done are no growth after 24 hours. Respiratory panel was negative. IMAGING STUDIES: Head CT showed no acute findings. Cervical spine CT shows severe degenerative spondylosis levels C3-C7 without acute fracture. Chest x-ray shows in complete inspiratory effort, cardiomegaly but no acute infiltrates. Brain MRI had been done in 2016 and was negative. IMPRESSION: This is a 76-year-old female who was admitted with severe neck stiffness, headache, and low-grade fever. The patient does not look septic, but very uncomfortable. She has a history of herpes oralis. Does not have any confusion or seizures to suggest encephalitis but has severe meningitis with meningeal symptoms suggestive of viral meningitis, although the lumbar puncture (LP) was completely negative with 2 white cells and 2 red cells. This is not a picture that fits meningitis. Other things in differential diagnosis that would cause severe headache, although without neck stiffness, would be temporal arteritis. Erythrocyte sedimentation rate (ESR) was ordered. Rheumatologic workup has been done. The patient also has swelling of her right thumb, which could be from gouty arthritis but also could be septic arthritis, and therefore imaging of that right thumb might be needed. The patient has definitely a loud murmur suggestive of some valvular damage, possibly mitral regurgitation. The patient denies history of murmurs in the past, and therefore endocarditis needs to be also in the differential. PLAN: Followup blood cultures have been ordered times two. Discontinue IV acyclovir. The patient does not have encephalitis. Discontinue IV ampicillin. Continue with vancomycin and Rocephin to cover broadly for bacterial pathogens. Will obtain a sedimentation rate, C-reactive protein (CRP). Followup echocardiogram has been ordered. Consider doing an MRI of the left thumb if continues to be swollen. I would suggest adding prednisone. See if that would help with the headache. I would also obtain MRI with Gadolinium to have a and rule out vasculitis as the cause of severe headache and neck stiffness. ALLERGIES: CEPHALOSPORIN, although the patient has tolerated ceftriaxone, epinephrine, lidocaine, penicillin. MEDICATIONS: - ceftriaxone 2 grams IV every 12 hours - Lipitor 10 mg by mouth at bedtime - Singulair 10 mg by mouth at bedtime - Requip 0.5 mg by mouth at bedtime - Ativan 1 mg every 4 as needed - insulin sliding scale - vancomycin 1 gram IV every 12 hour - acyclovir 1 gram IV every 8 hours will be discontinued - ampicillin 2 grams IV every 4 hours was not given, as the patient has penicillin allergy - Celexa 20 mg by mouth daily - vitamin B12 at 500 mcg by mouth daily - furosemide 40 mg by mouth daily - lisinopril 25 mg by mouth daily - omeprazole 20 mg by mouth daily - Micro-K 10 mEq twice a day - Lyrica 100 mg by mouth three times a day - Levemir 40 units subcutaneous daily MTDD
[2017-06-04] MEDS: ACETAMINOPHEN TAB 650MG DOSE (2X325MG) PO PRN (23:29)
--- NOTE | 2017-06-05 01:38 | IPN ---
DATE OF SERVICE: 06/04/2017 Ms. Childs was a little lethargic this morning, but she was given Ativan and tramadol in the middle of the night as she was a little confused. This morning, she is alert and oriented times three. She still has significant neck stiffness, but she also has difficulty turning left and right. She denies any blurry vision or diplopia. Vital signs: Temperature is 98.2, pulse 80, respirations 20, blood pressure 121/57, oxygen saturation 90% on room air. Heart: Normal S1, S2 with a holosystolic murmur 2/6 best heard at the left upper sternal border. Lungs are clear. No wheezes, rales or rhonchi. Abdomen: Soft, nontender. Extremities: No clubbing, cyanosis or edema. Right arm tattoo clean with no evidence of infection. Left thumb erythematous and swelling of the MCP joint. Neck is stiff with very limited flexion. Rotation to the right and to the left is also limited. Cranial nerves are intact. The patient is able to respond appropriately. She is alert and oriented times three. She can give me the date, time and year. LABORATORY DATA: White count 6.4, hemoglobin 9.1, hematocrit 28.6, platelets 119. ESR 58. Sodium 133, potassium 3.9, chloride 98, bicarbonate 26, BUN 15, creatinine 1, glucose 180, calcium 7.5, CRP 13. Vancomycin trough is pending. Lyme disease serology is pending. Rheumatoid factor less than 10. CSF Gram stain was negative. Blood cultures two sets are no growth so far. CSF had 2 white cells, less than 2 red cells, glucose 120, and total protein 80 which is elevated. IMPRESSION: 1. Fever with neck stiffness, but the lumbar puncture is not suggestive of meningitis with only two white cells in cerebrospinal fluid (CSF). There is concern of an elevated total protein, possible parameningeal focus. The patient has very limited range of motion of the cervical spine. One should also rule out a cervical spine abscess. 2. Left thumb swelling, possibly related to gout or pseudogout. The patient has elevated uric acid, does not seem to be infectious at this point. The patient has good range of motion of the thumb, which would go against a septic arthritis. Uric acid was 6.6. Will be treated with colchicine. PLAN: Discontinue intravenous (IV) vancomycin. CSF is not suggestive of bacterial meningitis. Continue Rocephin to cover for possible Lyme. Obtain stat MRI of the brain and cervical spine. Further plan will depend on results of MRI. Case discussed with Dr. Liu.
[2017-06-05] MEDS: PERCOCET 5MG/325MG TAB PO PRN ×2 (05:18→10:24)
[2017-06-05 06:00] VITALS: BP 148/96
[2017-06-05 06:06] LABS: MEAN CORPUSCULAR HEMOGLOBIN 27.5 pg (27.0-33.0); MEAN CORPUSCULAR HGB CONC 32.2 g/dl (32.0-36.5); MEAN CORPUSCULAR VOLUME 85.2 fl (80.0-96.0); PLATELET COUNT, AUTOMATED 124 10^3/uL (150-450); WHITE BLOOD COUNT 5.2 10^3/uL (4.0-10.0)
[2017-06-05 06:30] LABS: ANION GAP 8 MEQ/L (8-16); BLOOD UREA NITROGEN 14 MG/DL (7-18); CARBON DIOXIDE LEVEL 26 MEQ/L (21-32); CHLORIDE LEVEL 105 MEQ/L (98-107); CREATININE FOR GFR 0.95 MG/DL (0.55-1.02); GLOMERULAR FILTRATION RATE > 60.0 (>39); GLUCOSE, FASTING 131 MG/DL (83-110); POTASSIUM SERUM 3.8 MEQ/L (3.5-5.1); SODIUM LEVEL 139 MEQ/L (136-145)
[2017-06-05] MEDS: COLCHICINE 0.6 MG TAB PO SCH ×2 (08:20→20:50)
[2017-06-05] MEDS: LISINOPRIL *2.5 MG* TAB PO SCH (08:22)
[2017-06-05] MEDS: OMEPRAZOLE 20 MG CAP PO SCH (08:23)
[2017-06-05] MEDS: CYANOCOBALAMIN 500 MCG TAB PO SCH (08:23)
[2017-06-05] MEDS: CitaloPRAM (CeleXA) 20 MG TAB PO SCH (08:24)
[2017-06-05] MEDS: POTASSIUM CHLORIDE 10 MEQ SR TABLET PO SCH ×2 (08:24→20:49)
[2017-06-05] MEDS: PREGABALIN 100 MG CAP (LYRICA) PO SCH ×3 (08:24→20:49)
[2017-06-05] MEDS: FUROSEMIDE 40 MG TAB PO SCH (08:24)
[2017-06-05] MEDS: HumaLOG INSULIN (NovoLOG) PER UNIT SC SCH ×4 (08:26→21:00)
[2017-06-05] MEDS: LEVEMIR (INSULIN DETEMIR) 1 UNITS/0.01ML SC SCH (08:28)
[2017-06-05] MEDS: NS 1,000 ML IV SCH ×2 (08:33→17:08)
--- NOTE | 2017-06-05 10:05 | ECHO ---
DATE OF PROCEDURE: 06/04/2017 REFERRING PROVIDER: Dr. Demetrius Ryder. REASON FOR ECHOCARDIOGRAM: Heart murmur. 2D MEASUREMENT: IVS - 1.3 cm LV - 4.6 cm LVPW - 1.3 cm LA - 4.0 cm Aorta - 3.2 cm IVC - 2.4 cm DOPPLER MEASUREMENT: Peak velocity across the aortic valve - 3.0 m/s Peak velocity across the LVOT - 0.99 m/s Peak gradient across the aortic valve - 36 mmHg Mean gradient across the aortic valve - 20 mmHg Mitral E - 1.0, Mitral A 1.1 with a ratio of 0.9 Maximum tricuspid valve velocity - 2.8 m/s 2D COMMENTS: 1. Mildly increased left ventricular wall thickness with normal left ventricular size and a normal global left ventricular systolic function. Left ventricular systolic ejection fraction is estimated at 60-65%. 2. Borderline enlarged left atrium. Normal right atrium and left ventricle. 3. The atrial septum appear to be normal without evidence or defect or shunt. 4. Normal aortic root. 5. No pericardial effusion seen. 6. Moderately calcified aortic valve, leaflet excursion appeared to be restricted. There is a mobile echogenic structure noted on the left ventricular side of the aortic valve and this may be related to prior vegetation. 7. Mildly calcified aortic valve with normal anterior mitral valve leaflet motion. Mobile and calcified echogenic structure also was noted in the ventricular sides of the mitral valve at the level of the lateral wall mitral valve annulus. Normal tricuspid valve. The pulmonic valve appeared to be normal in limited views. The proximal pulmonary artery branches were not well visualized. 8. The inferior vena cava was mildly enlarged, central venous pressure might be elevated. 9. Doppler detects trace aortic regurgitation, trace to mild mitral regurgitation, mild tricuspid regurgitation. The calculated pulmonary artery systolic pressure varied between 30-40 mmHg. Abnormal relaxation pattern was noted across the mitral valve leaflets as well as the mitral valve annulus consistent with a delayed relaxation. IMPRESSION: 1. Normal global left ventricular systolic function. There are features of left ventricular diastolic dysfunction manifested by abnormal relaxation. 2. Aortic valve sclerosis with mild to moderate aortic stenosis and trace aortic regurgitation. 3. Trace to mild mitral regurgitation with borderline enlarged left atrium and mitral annulus regurgitation. 4. Mild tricuspid regurgitation with mild pulmonary hypertension. 5. Echogenic structures noted on the left ventricular side of the aortic valve at the level of the lateral mitral valve annulus may be related to vegetation. To consider a transesophageal echocardiogram. 6. There are features of elevated central venous pressure.
[2017-06-05] MEDS ORDERED: DOCUSATE SODIUM 100 MG CAP PO PRN (10:15)
[2017-06-05] MEDS: cefTRIAXone SOD 2 GM in D5W 50 ML IV SCH ×2 (10:20→23:48)
[2017-06-05] MEDS: MORPHINE 2 MG/ML 1ML SYRINGE IV PRN ×2 (13:04→21:09)
[2017-06-05] MEDS: CYCLOBENZAPRINE 10 MG TAB PO PRN (13:04)
[2017-06-05] MEDS: MIRALAX *UNIT DOSE* 17GM PACKET PO SCH (13:05)
--- NOTE | 2017-06-05 13:13 | IPNPDOC ---
Date Seen The patient was seen on 06/05/17. Progress Note SUBJECTIVE: Patient is a 76 yo female seen at bedside. Still c/o h/a, neck stiffness (about the same) and left thumb pain (less). Uric acid, crp, ESR were elevated yesterday and started colchicine. OBJECTIVE PHYSICAL EXAMINATION: VITAL SIGNS: Please see below. GENERAL: NAD, A&O HEENT: PERRLA, Neck stiff, no adenopathy CARDIOVASCULAR: RRR, Holosystolic murmur. . RESPIRATORY: CTA Bilaterally. ABDOMINAL: soft, NT/ND, NORMOACTIVE BS EXTREMITIES: LEFT THUMB PAIN better and less swelling. NEUROLOGICAL: CN II-XII GROSSLY INTACT PSYCHOLOGICAL: NEGATIVE LABORATORY DATA: Please see below. MICROBIOLOGY: Please see below. Echocardiogram: 1. Normal global left ventricular systolic function. There are features of left ventricular diastolic dysfunction manifested by abnormal relaxation. 2. Aortic valve sclerosis with mild to moderate aortic stenosis and trace aortic regurgitation. 3. Trace to mild mitral regurgitation with borderline enlarged left atrium and mitral annulus regurgitation. 4. Mild tricuspid regurgitation with mild pulmonary hypertension. 5. Echogenic structures noted on the left ventricular side of the aortic valve at the level of the lateral mitral valve annulus may be related to vegetation. To consider a transesophageal echocardiogram. BRAIN MRI: 1. Small vessel ischemic disease.2. Mild volume loss. CERVICAL SPINE MRI: Limited examination demonstrating cervical spondylosis at the C2-3 through C7-T1 levels, most significant at the C4-5 level where there is minimal spinal cord compression. DVT prophylaxis ordered?: YES ASSESSMENT AND PLAN: This is a 76 yo female seen at bedside still with neck pain /stiffness and headache. PROBLEMS: 1. Neck pain/stiffness with meningeal signs-Meningitis bacterial v viral Continue with antibiotics/recommendations outlined by Dr. Ryder She looks like she has some degenerative issues with c-spine, will add some flexeril for muscle spasms. 2. Elevated ESR and CRP / ? vegetative valvular disease findings on 2-D Echo needing to r/o endocarditis. Will need scheduled for DANIELLE. 3. HTN Continue lasix Continue lisinopril 4. DM2 Off oral hypoglycemics. Continue levemir 40U daily (substituted for lantus 40U) FSAC/HS with SSI coverage 5. BPPV Continue prn meclizine 6. RLS Continue ropinirole Continue lyrica 7. GERD Continue ppi 8 Asthma Continue singulair 9. DVT prophylaxis Heparin sq 10. Left thumb pain and swelling: possible gout, continue colchicine. DISPOSITION: appreciate Dr. Ryder's input regarding possible meningitis. VS, I&O, 24H, Fishbone Vital Signs/I&O Vital Signs Date Time Temp Pulse Resp B/P (MAP) Pulse Ox O2 Delivery O2 Flow Rate FiO2 06/05/17 10:24 20 Room Air 06/05/17 08:22 153/64 06/05/17 06:00 98.1 79 97 06/03/17 01:10 2.0 I&O- Last 24 Hours up to 6 AM 06/06/17 06:00 Intake Total 1010 ml Output Total 850 ml Balance 160 ml Laboratory Data 24H LABS Laboratory Tests 2 06/04/17 13:52: Vancomycin Level Trough 22.0H 06/04/17 16:22: Bedside Glucose (Misc Panel) 140H 06/04/17 20:34: Bedside Glucose (Misc Panel) 290H 06/05/17 05:32: Nucleated Red Blood Cells % (auto) 0.0, Anion Gap 8, Glomerular Filtration Rate > 60.0, Blood Urea Nitrogen 14, Creatinine 0.95, Sodium Level 139, Potassium Level 3.8, Chloride Level 105, Carbon Dioxide Level 26, Calcium Level 8.0L 06/05/17 11:57: Bedside Glucose (Misc Panel) 243H CBC/BMP Laboratory Tests 06/05/17 05:32 Red Blood Count 3.57 L, Mean Corpuscular Volume 85.2, Mean Corpuscular Hemoglobin 27.5, Mean Corpuscular Hemoglobin Concent 32.2, Red Cell Distribution Width 15.0 H, Calcium Level 8.0 L Microbiology Microbiology 06/03/17 Blood Culture - Preliminary, Resulted No growth after 24 hours . All specim... 06/02/17 Blood Culture - Preliminary, Resulted No Growth after 48 hours. All Specime... 06/03/17 Gram Stain - Final, Complete 06/03/17 CSF Culture - Final, Complete 06/03/17 Gram Stain - Final, Complete 06/03/17 CSF Culture - Final, Complete 06/03/17 - Final, Complete 06/02/17 Respiratory Virus Panel (PCR) ([facility]) - Final, Complete 06/02/17 Urine Culture - Final, Complete LILIAN GATES DO Jun 05, 2017 13:13
[2017-06-05 14:00] VITALS: BP 176/79
[2017-06-05] MEDS: LORazepam 2 MG/ML VIAL (J2060) IV PRN (14:41)
[2017-06-05] MEDS: MONTELUKAST 10 MG TAB PO SCH (20:49)
[2017-06-05] MEDS: rOPINIRole 0.25 MG TAB(REQUIP) PO SCH (20:50)
[2017-06-05] MEDS: ATORVASTATIN 10 MG TAB PO SCH (20:50)
[2017-06-05 22:00] VITALS: BP 158/72
[2017-06-06] MEDS: PERCOCET 5MG/325MG TAB PO PRN ×2 (00:40→17:35)
[2017-06-06] MEDS: NS 1,000 ML IV SCH ×3 (01:11→17:34)
[2017-06-06 05:52] LABS: MEAN CORPUSCULAR HEMOGLOBIN 27.3 pg (27.0-33.0); MEAN CORPUSCULAR HGB CONC 31.9 g/dl (32.0-36.5); MEAN CORPUSCULAR VOLUME 85.5 fl (80.0-96.0); PLATELET COUNT, AUTOMATED 137 10^3/uL (150-450); WHITE BLOOD COUNT 4.5 10^3/uL (4.0-10.0)
[2017-06-06 06:00] VITALS: BP 135/65
[2017-06-06 06:15] LABS: ANION GAP 8 MEQ/L (8-16); BLOOD UREA NITROGEN 11 MG/DL (7-18); CARBON DIOXIDE LEVEL 27 MEQ/L (21-32); CHLORIDE LEVEL 107 MEQ/L (98-107); CREATININE FOR GFR 0.76 MG/DL (0.55-1.02); GLOMERULAR FILTRATION RATE > 60.0 (>39); GLUCOSE, FASTING 81 MG/DL (83-110); POTASSIUM SERUM 3.4 MEQ/L (3.5-5.1); SODIUM LEVEL 142 MEQ/L (136-145)
[2017-06-06] MEDS: HumaLOG INSULIN (NovoLOG) PER UNIT SC SCH ×4 (07:27→21:00)
[2017-06-06] MEDS: MIRALAX *UNIT DOSE* 17GM PACKET PO SCH (08:40)
[2017-06-06] MEDS: PREGABALIN 100 MG CAP (LYRICA) PO SCH ×3 (08:41→21:24)
[2017-06-06] MEDS: CYANOCOBALAMIN 500 MCG TAB PO SCH (08:41)
[2017-06-06] MEDS: LISINOPRIL *2.5 MG* TAB PO SCH (08:41)
[2017-06-06] MEDS: OMEPRAZOLE 20 MG CAP PO SCH (08:41)
[2017-06-06] MEDS: POTASSIUM CHLORIDE 10 MEQ SR TABLET PO SCH ×2 (08:41→21:24)
[2017-06-06] MEDS: CitaloPRAM (CeleXA) 20 MG TAB PO SCH (08:41)
[2017-06-06] MEDS: FUROSEMIDE 40 MG TAB PO SCH (08:41)
[2017-06-06] MEDS: LEVEMIR (INSULIN DETEMIR) 1 UNITS/0.01ML SC SCH (09:00)
[2017-06-06] MEDS: COLCHICINE 0.6 MG TAB PO SCH ×2 (09:25→21:24)
[2017-06-06] MEDS: MORPHINE 4 MG/ML 1ML SYRINGE IV PRN (09:26)
[2017-06-06] MEDS: cefTRIAXone SOD 2 GM in D5W 50 ML IV SCH ×2 (12:18→23:18)
[2017-06-06 14:00] VITALS: BP 150/80
--- NOTE | 2017-06-06 14:04 | REP ---
LEFT LOWER EXTREMITY DUPLEX VEINS: HISTORY: Rule out deep venous thrombosis. There are no filling defects in the deep venous system. The deep venous system is patent. A Lin's cyst is present. The cyst measures 6.9 x 1.8 x 4.8 cm. IMPRESSION: 1. There is no deep venous thrombosis. 2. Lin's cyst as described above. Signed by Ryan Carrion MD 06/06/2017 02:06 P
--- NOTE | 2017-06-06 14:28 | IPNPDOC ---
Date Seen The patient was seen on 06/06/17. Progress Note SUBJECTIVE: Patient is a 76 yo female seen at bedside. Still having some neck stiffness and h/a (both less than yesterday) but more responsive to medications and K-pad. Tolerating PO intake. Denies: f/c/r, n/v/d, CP, sob, prod sputum. OBJECTIVE PHYSICAL EXAMINATION: VITAL SIGNS: Please see below. GENERAL: NAD, A&O HEENT: PERRLA, Neck stiff, no adenopathy CARDIOVASCULAR: RRR, Holosystolic murmur. . RESPIRATORY: CTA Bilaterally. ABDOMINAL: soft, NT/ND, NORMOACTIVE BS EXTREMITIES: thumb pain better/no erythema, Legs: Left calf pain and posterior knee pain. NEUROLOGICAL: CN II-XII GROSSLY INTACT PSYCHOLOGICAL: NEGATIVE LEFT LEG DUPLEX: 1. There is no deep venous thrombosis. 2. Lin's cyst as described. LABORATORY DATA: Please see below. MICROBIOLOGY: Please see below. DVT prophylaxis ordered?: YES ASSESSMENT AND PLAN: This is a 76 yo female seen at bedside still with some neck pain/stiffness and headache (but she says better than yesterday). PROBLEMS: 1. Neck pain/stiffness with meningeal signs-Meningitis bacterial v viral Continue with antibiotics/recommendations outlined by Dr. Ryder She looks like she has some degenerative issues with c-spine, will continue pain medications, Flexeril for muscle spasms and k-pad for comfort. 2. Elevated ESR and CRP / ? vegetative valvular disease findings on 2-D Echo needing to r/o endocarditis. Will need scheduled for DANIELLE. 3. 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 No DVT. 4. Hypokalemia: supplemented 5. HTN Continue lasix, lisinopril. 6. DM2 Off oral hypoglycemics. Continue levemir 40U daily (substituted for lantus 40U) FSAC/HS with SSI coverage 7. BPPV Continue prn meclizine 8. RLS Continue ropinirole Continue Lyrica 9. GERD Continue ppi 10. Asthma Continue Singulair 11. Left thumb pain and swelling: possible gout, continue colchicine. 12. DVT prophylaxis Heparin sq DISPOSITION: Will need PT and appreciate Dr. Ryder's further input on Wednesday. VS, I&O, 24H, Fishbone Vital Signs/I&O Vital Signs Date Time Temp Pulse Resp B/P (MAP) Pulse Ox O2 Delivery O2 Flow Rate FiO2 06/06/17 09:36 18 Room Air 06/06/17 08:41 135/65 06/06/17 06:00 97.0 64 95 06/03/17 01:10 2.0 I&O- Last 24 Hours up to 6 AM 06/07/17 06:00 Intake Total 720 ml Output Total 600 ml Balance 120 ml Laboratory Data 24H LABS Laboratory Tests 2 06/05/17 17:00: Bedside Glucose (Misc Panel) 136H 06/05/17 20:17: Bedside Glucose (Misc Panel) 129H 06/06/17 05:28: Nucleated Red Blood Cells % (auto) 0.0, Anion Gap 8, Glomerular Filtration Rate > 60.0, Blood Urea Nitrogen 11, Creatinine 0.76, Sodium Level 142, Potassium Level 3.4L, Chloride Level 107, Carbon Dioxide Level 27, Calcium Level 8.0L 06/06/17 12:06: Bedside Glucose (Misc Panel) 180H CBC/BMP Laboratory Tests 06/06/17 05:28 Red Blood Count 3.37 L, Mean Corpuscular Volume 85.5, Mean Corpuscular Hemoglobin 27.3, Mean Corpuscular Hemoglobin Concent 31.9 L, Red Cell Distribution Width 15.0 H, Calcium Level 8.0 L Microbiology Microbiology 06/03/17 Blood Culture - Preliminary, Resulted No Growth after 48 hours. All Specime... 06/02/17 Blood Culture - Preliminary, Resulted No Growth after 72 hours. All specime... 06/03/17 Gram Stain - Final, Complete 06/03/17 CSF Culture - Final, Complete 06/03/17 Gram Stain - Final, Complete 06/03/17 CSF Culture - Final, Complete 06/03/17 - Final, Complete 06/02/17 Respiratory Virus Panel (PCR) ([facility]) - Final, Complete 06/02/17 Urine Culture - Final, Complete LILIAN GATES DO Jun 06, 2017 14:28
[2017-06-06] MEDS: MORPHINE 2 MG/ML 1ML SYRINGE IV PRN ×2 (15:22→21:25)
[2017-06-06] MEDS: MONTELUKAST 10 MG TAB PO SCH (21:23)
[2017-06-06] MEDS: rOPINIRole 0.25 MG TAB(REQUIP) PO SCH (21:24)
[2017-06-06] MEDS: ATORVASTATIN 10 MG TAB PO SCH (21:24)
[2017-06-06 22:00] VITALS: BP 130/78
[2017-06-06] MEDS: CYCLOBENZAPRINE 10 MG TAB PO PRN (23:18)
[2017-06-07] MEDS: NS 1,000 ML IV SCH ×3 (01:34→18:08)
[2017-06-07 06:00] VITALS: BP 132/70
[2017-06-07 06:52] LABS: MEAN CORPUSCULAR HEMOGLOBIN 26.8 pg (27.0-33.0); MEAN CORPUSCULAR HGB CONC 29.4 g/dl (32.0-36.5); MEAN CORPUSCULAR VOLUME 91.1 fl (80.0-96.0); PLATELET COUNT, AUTOMATED 109 10^3/uL (150-450); RED CELL DISTRIBUTION WIDTH 14.8 % (11.5-14.5); WHITE BLOOD COUNT 2.7 10^3/uL (4.0-10.0)
[2017-06-07 07:13] LABS: ANION GAP 7 MEQ/L (8-16); BLOOD UREA NITROGEN 11 MG/DL (7-18); CALCIUM LEVEL 7.6 MG/DL (8.8-10.2); CARBON DIOXIDE LEVEL 21 MEQ/L (21-32); CHLORIDE LEVEL 108 MEQ/L (98-107); CREATININE FOR GFR 0.78 MG/DL (0.55-1.02); GLOMERULAR FILTRATION RATE > 60.0 (>39); GLUCOSE, FASTING 206 MG/DL (83-110); POTASSIUM SERUM 3.6 MEQ/L (3.5-5.1); SODIUM LEVEL 136 MEQ/L (136-145)
[2017-06-07 08:04] LABS: REASON FOR REVIEW COMPREHENSIVE REVIEW
[2017-06-07] MEDS: MIRALAX *UNIT DOSE* 17GM PACKET PO SCH (08:25)
[2017-06-07] MEDS: MORPHINE 2 MG/ML 1ML SYRINGE IV PRN (08:26)
[2017-06-07] MEDS: PREGABALIN 100 MG CAP (LYRICA) PO SCH ×3 (08:27→20:23)
[2017-06-07] MEDS: FUROSEMIDE 40 MG TAB PO SCH (08:27)
[2017-06-07] MEDS: HumaLOG INSULIN (NovoLOG) PER UNIT SC SCH ×4 (08:27→21:00)
[2017-06-07] MEDS: POTASSIUM CHLORIDE 10 MEQ SR TABLET PO SCH ×2 (08:27→20:23)
[2017-06-07] MEDS: LEVEMIR (INSULIN DETEMIR) 1 UNITS/0.01ML SC SCH (08:27)
[2017-06-07] MEDS: CitaloPRAM (CeleXA) 20 MG TAB PO SCH (08:27)
[2017-06-07] MEDS: PERCOCET 5MG/325MG TAB PO PRN ×2 (08:28→20:31)
[2017-06-07] MEDS: OMEPRAZOLE 20 MG CAP PO SCH (08:28)
[2017-06-07] MEDS: CYANOCOBALAMIN 500 MCG TAB PO SCH (08:28)
[2017-06-07] MEDS: COLCHICINE 0.6 MG TAB PO SCH ×2 (08:28→20:22)
[2017-06-07] MEDS: LISINOPRIL *2.5 MG* TAB PO SCH (08:31)
--- NOTE | 2017-06-07 10:35 | IPNPDOC ---
Date Seen The patient was seen on 06/07/17. Progress Note SUBJECTIVE: Patient is a 76 yo female seen at bedside. Neck pain/stiffness improved but still having H/A over the right eye with photopobia and occasional nausea. Denies visual disturbance. States her left thumb is feeling much better. Tolerating PO intake. Denies: f/c/r, n/v/d, CP, sob, prod sputum. OBJECTIVE PHYSICAL EXAMINATION: VITAL SIGNS: Please see below. GENERAL: NAD, A&O HEENT: PERRLA, Neck stiff, no adenopathy CARDIOVASCULAR: RRR, Holosystolic murmur. . RESPIRATORY: CTA Bilaterally. ABDOMINAL: soft, NT/ND, NORMOACTIVE BS EXTREMITIES: thumb pain better/no erythema, Legs: Left calf pain and posterior knee pain. NEUROLOGICAL: CN II-XII GROSSLY INTACT PSYCHOLOGICAL: NEGATIVE LEFT LEG DUPLEX: 1. There is no deep venous thrombosis. 2. Lin's cyst as described. (reviewed results with patient this morning) LABORATORY DATA: Please see below. MICROBIOLOGY: Please see below. DVT prophylaxis ordered?: YES ASSESSMENT AND PLAN: This is a 76 yo female seen at bedside still with headache and photophobia. PROBLEMS: 1. Neck pain/stiffness with meningeal signs-Meningitis bacterial v viral Continue with antibiotics/recommendations outlined by Dr. Ryder She looks like she has some degenerative issues with c-spine, will continue pain medications, Flexeril for muscle spasms and k-pad for comfort. 2. Ongoing Cephalgia with photophobia: Requested Neurology consult. Dr. Moreno to see later today. 2. Elevated ESR and CRP / ? vegetative valvular disease findings on 2-D Echo needing to r/o endocarditis. Will need scheduled for DANIELLE, spoke to nursing this morning to be sure this gets scheduled. 3. 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 No DVT. Outpatient follow up. 4. Hypokalemia: resolved 5. Pancytopenia: possibly related to acute illness, but will check a peripheral smear. 6. HTN Continue lasix, lisinopril. 7. DM2 Off oral hypoglycemics. Continue levemir 40U daily (substituted for lantus 40U) FSAC/HS with SSI coverage 8. BPPV Continue prn meclizine 9. RLS Continue ropinirole Continue Lyrica 10. GERD Continue ppi 11. Asthma Continue Singulair 12. Left thumb pain and swelling: possible gout, continue colchicine. 13. DVT prophylaxis Heparin sq DISPOSITION: Will need PT and appreciate Dr. Ryder's further input today and requested Neurology/Dr. Moreno consult Will check on status of DANIELLE order. VS, I&O, 24H, Fishbone Vital Signs/I&O Vital Signs Date Time Temp Pulse Resp B/P (MAP) Pulse Ox O2 Delivery O2 Flow Rate FiO2 06/07/17 08:58 16 06/07/17 08:31 137/58 06/07/17 08:26 Room Air 06/07/17 06:00 98.0 73 96 06/03/17 01:10 2.0 I&O- Last 24 Hours up to 6 AM 06/08/17 06:00 Intake Total 750 ml Balance 750 ml Laboratory Data 24H LABS Laboratory Tests 2 06/06/17 12:06: Bedside Glucose (Misc Panel) 180H 06/06/17 16:31: Bedside Glucose (Misc Panel) 186H 06/06/17 20:37: Bedside Glucose (Misc Panel) 243H 06/07/17 06:36: Nucleated Red Blood Cells % (auto) 0.0, Differential Slide Review Report, Differential Pathologist's Review COMPREHENSIVE REVIEW, Peripheral Blood Smear Path Consult PERIPHERAL SMEAR, Anion Gap 7L, Glomerular Filtration Rate > 60.0, Blood Urea Nitrogen 11, Creatinine 0.78, Sodium Level 136, Potassium Level 3.6, Chloride Level 108H, Carbon Dioxide Level 21, Calcium Level 7.6L CBC/BMP Laboratory Tests 06/07/17 06:36 Red Blood Count 3.58 L, Mean Corpuscular Volume 91.1, Mean Corpuscular Hemoglobin 26.8 L, Mean Corpuscular Hemoglobin Concent 29.4 L, Red Cell Distribution Width 14.8 H, Calcium Level 7.6 L Microbiology Microbiology 06/03/17 Blood Culture - Preliminary, Resulted No Growth after 72 hours. All specime... 06/02/17 Blood Culture - Preliminary, Resulted No Growth after 72 hours. All specime... 06/03/17 Gram Stain - Final, Complete 06/03/17 CSF Culture - Final, Complete 06/03/17 Gram Stain - Final, Complete 06/03/17 CSF Culture - Final, Complete 06/03/17 - Final, Complete 06/02/17 Respiratory Virus Panel (PCR) ([facility]) - Final, Complete 06/02/17 Urine Culture - Final, Complete LILIAN GATES DO Jun 07, 2017 10:35
[2017-06-07] MEDS: cefTRIAXone SOD 2 GM in D5W 50 ML IV SCH ×2 (11:58→23:03)
[2017-06-07 14:00] VITALS: BP 122/68
[2017-06-07] MEDS: MORPHINE 4 MG/ML 1ML SYRINGE IV PRN ×2 (16:10→23:03)
[2017-06-07] MEDS: rOPINIRole 0.25 MG TAB(REQUIP) PO SCH (20:22)
[2017-06-07] MEDS: ATORVASTATIN 10 MG TAB PO SCH (20:23)
[2017-06-07] MEDS: MONTELUKAST 10 MG TAB PO SCH (20:23)
[2017-06-07 22:00] VITALS: BP 128/62
[2017-06-08 00:06] LABS: Lyme Disease IgG/IgM Antibodie <0.91 ISR (0.00-0.90); Lyme Disease IgM Ab Quantitati <0.80 index (0.00-0.79)
[2017-06-08] MEDS: NS 1,000 ML IV SCH (02:57)
[2017-06-08 06:00] VITALS: BP 122/68
[2017-06-08 06:37] LABS: MEAN CORPUSCULAR HEMOGLOBIN 26.7 pg (27.0-33.0); MEAN CORPUSCULAR HGB CONC 31.3 g/dl (32.0-36.5); MEAN CORPUSCULAR VOLUME 85.3 fl (80.0-96.0); PLATELET COUNT, AUTOMATED 147 10^3/uL (150-450)
[2017-06-08 07:17] LABS: ANION GAP 7 MEQ/L (8-16); BLOOD UREA NITROGEN 11 MG/DL (7-18); CARBON DIOXIDE LEVEL 29 MEQ/L (21-32); CHLORIDE LEVEL 107 MEQ/L (98-107); CREATININE FOR GFR 0.79 MG/DL (0.55-1.02); GLOMERULAR FILTRATION RATE > 60.0 (>39); GLUCOSE, FASTING 151 MG/DL (83-110); POTASSIUM SERUM 3.8 MEQ/L (3.5-5.1); SODIUM LEVEL 143 MEQ/L (136-145)
--- NOTE | 2017-06-08 07:31 | CR ---
DATE OF CONSULTATION: 06/07/2017 REFERRING PHYSICIAN: Dr. Marvin Liu HISTORY OF PRESENT ILLNESS: Lela Childs is a 76-year-old woman who was at her baseline state of health until a week ago when she developed a severe right frontal temporal and occipital 10/10 headache, pressure and aching in character with 8/10 neck pain. The patient states that 2 months ago, she had similar thing but it was lesser in severity. She had severe headache at that time with stiffness of her arms lasting for 3 or 4 days. At her baseline, the patient uses a walker due to severe low-back pain. She has history of lumbosacral spinal stenosis and had two back surgeries. Her last back surgery was in 2006. It did not help her back pain. She has to use a walker or a cart to ambulate which helps her back pain. She states that she did not have migraines in past. She had occasional headaches in past. With her current headache, she feels nausea, dizziness, blurred vision, photophobia and phonophobia. In the beginning, it was thought that she may have meningitis. She was on vancomycin, ceftriaxone, acyclovir and ampicillin. She is currently only on ceftriaxone due to concern for Lyme disease. Her spinal tap was unremarkable with WBCs only 2 and mildly elevated protein in CSF. Her ESR was high 58. In the beginning, she did have a low grade fever. She had very suspicion for meningitis which has since been ruled out. She also noted swelling of her finger joints. She denies any falls, loss of consciousness or head injuries. PAST MEDICAL HISTORY: Hypertension. Dyslipidemia. Type 2 diabetes. Restless leg syndrome. Anxiety. Acid reflux. Benign positional vertigo. Hypothyroidism. Lumbosacral laminectomy, fusion. Appendectomy. Cholecystectomy. Cardiac catheterization which was unremarkable. Hysterectomy. Bladder suspension. Right knee arthroscopic surgery. FAMILY HISTORY: Noncontributory. SOCIAL HISTORY: Her grandson lives with her. She drives. She denies smoking, alcohol or illicit drugs. REVIEW OF SYSTEMS: All systems were reviewed and found to be noncontributory except as mentioned in history of present illness. PHYSICAL EXAMINATION: Temperature 97.6, pulse 72, respiratory 18, blood pressure 122/68, 98% saturation on room air. Heart: Regular rate and rhythm. Lungs: Clear to auscultation. Abdomen: Soft, nontender, nondistended. No pedal edema. No fractures or rash. Ear, nose, throat examination is within normal limits. The patient is awake, alert, oriented to place, person and time. Normal speech, comprehension and repetition. Extraocular muscles are intact. No facial weakness. Tongue and uvula are midline. 5/5 strength in all four extremities. Deep tendon reflexes 1+ in arms and absent in legs. Her gait is unsteady. She has decreased cold, pinprick, vibration sensation in her feet. Plantars are downgoing. There is no dysmetria. No tremor. No cogwheel rigidity. No dysmetria. DIAGNOSTIC STUDIES: Her MRI scan of brain showed mild small vessel ischemic disease of brain. MRI cervical spine showed multilevel degenerative disc disease and mild-moderate cervical stenosis. X-rays of lower back showed stabilizing rods since her second lumbosacral fusion in 2006. ASSESSMENT: 1. Migraine without aura, intractable, with status migrainosus. 2. Right occipital neuralgia. 3. There is concern for temporal arteritis. 4. No evidence of meningitis. Mildly elevated protein in the presence of normal WBCs is most likely due to her history of spinal stenosis in cervical and lumbosacral regions. Diabetes is another very common cause of mildly elevated protein. PLAN: 1. Check ESR and CRP. 2. Depakote extended release 500 mg by mouth daily. Nortriptyline as contingency plan. 3. Depending upon results of CRP and ESR, we may consider right temporal artery biopsy. 4. Physical and occupational therapy and use a walker. She has history of mild to moderate cervical stenosis and history of lumbosacral stenosis. She had lumbosacral laminectomy and fusion twice. Her gait difficulty is multifactorial. She can also have diabetic peripheral neuropathy.
[2017-06-08] MEDS: MIRALAX *UNIT DOSE* 17GM PACKET PO SCH (09:00)
[2017-06-08] MEDS ORDERED: DIVALPROEX 500MG *ER* TAB PO SCH (09:00)
[2017-06-08] MEDS: HumaLOG INSULIN (NovoLOG) PER UNIT SC SCH ×4 (09:24→21:00)
[2017-06-08] MEDS: LEVEMIR (INSULIN DETEMIR) 1 UNITS/0.01ML SC SCH (09:24)
[2017-06-08] MEDS: PERCOCET 5MG/325MG TAB PO PRN ×2 (09:25→16:33)
[2017-06-08 09:45] VITALS: BP 136/72
[2017-06-08] MEDS: CitaloPRAM (CeleXA) 20 MG TAB PO SCH (11:22)
[2017-06-08] MEDS: COLCHICINE 0.6 MG TAB PO SCH ×2 (11:22→21:46)
[2017-06-08] MEDS: FUROSEMIDE 40 MG TAB PO SCH (11:23)
[2017-06-08] MEDS: PREGABALIN 100 MG CAP (LYRICA) PO SCH ×3 (11:24→21:47)
[2017-06-08] MEDS: POTASSIUM CHLORIDE 10 MEQ SR TABLET PO SCH ×2 (11:24→21:47)
[2017-06-08] MEDS: OMEPRAZOLE 20 MG CAP PO SCH (11:25)
[2017-06-08] MEDS: CYANOCOBALAMIN 500 MCG TAB PO SCH (11:26)
[2017-06-08] MEDS: LISINOPRIL *2.5 MG* TAB PO SCH (11:26)
[2017-06-08] MEDS: cefTRIAXone SOD 2 GM in D5W 50 ML IV SCH (12:22)
[2017-06-08 14:00] VITALS: BP 143/71
--- NOTE | 2017-06-08 15:12 | IPNPDOC ---
Text Note Date of Service The patient was seen on 06/08/17. NOTE Subjective: Pt states her BROWN is much improved since her admission. No CP/ Palpitations. No SOB. No neuro symptoms/weakness. Objective: Vitals: (see below) General: No acute distress, laying comfortably in bed. HEENT: Moist mucous membranes. Neck: No JVD or lymphadenopathy Cardiac: RRR, 3/6 systolic murmur Pulm: Clear to auscultation b/l. No wheezing, rhonchi Abd: NT/ND + BS Ext: No edema or cyanosis Labs (see below) Images: Assessment/Plan 1. Complicated Migraines - with associated neck pain/degenerative cervical spine dz. Appreciate ID/Neuro input. Depakote increased/nortriptyline per neuro. MRI brain with no significant findings. ? need for temporal artery biopsy given elevated ESR, however will defer to neuro. 2. ? Vegetation on echo - pending DANIELLE; Dr. Parker on board. 3. Hypokalemia resolved 4. Pancytopenia - likely 2/2 acute illness. stable. No need to transfusion at this time. 5. HTN - cont home meds 6. DM - cont levemir. Hold home PO meds 7. BPPV - PRN Meclizine 8. RLS - Cont home meds 9. GERD - on PPI 10. Asthma - stable. on singular 11. Thumb pain improving. On colchicine DVT prophy: Hep SQ VS,Fishbone, I+O VS, Fishbone, I+O Laboratory Tests 06/08/17 05:52 Red Blood Count 3.41 L, Mean Corpuscular Volume 85.3, Mean Corpuscular Hemoglobin 26.7 L, Mean Corpuscular Hemoglobin Concent 31.3 L, Red Cell Distribution Width 15.0 H, Calcium Level 8.0 L Vital Signs Date Time Temp Pulse Resp B/P (MAP) Pulse Ox O2 Delivery O2 Flow Rate FiO2 06/08/17 14:00 97.3 70 18 143/71 (95) 96 Room Air 06/03/17 01:10 2.0 I&O- Last 24 Hours up to 6 AM 06/09/17 06:00 Intake Total 815 ml Balance 815 ml CAPRI ROSSI MD Jun 08, 2017 15:12
--- NOTE | 2017-06-08 17:56 | IPNPDOC ---
Text Note Date of Service The patient was seen on 06/08/17. NOTE Infectious Disease Progress Note Subjective: Ms. Childs is in a good mood today. She states that her neck stiffness has significantly improved, although she still does have decreased range of motion. In moving around her neck she does develop some pain that is located behind the right ear, and she points to the area at approximately the mastoid. The pain is described as a stiffness/aching. She is able to turn her head side to side now. Objective: General: Awake, alert, oriented 3. She is sitting upright on the edge of the bed. HEENT: Head normocephalic, atraumatic, sclera are nonicteric. Hearing is grossly intact to conversation. She is able to extend her head back approximately 20, and the flex forward approximately 30, however when she flexes her head forward she does experience some pain behind the right ear as described above. Respiratory: Clear to auscultation bilaterally with no wheezes, rales, or rhonchi. Cardiovascular: Regular rate and rhythm, with no rubs, gallops, she does have quite a significant 2-3/6 systolic murmur which apparently nobody has ever told her she has had in the past. Abdomen: Soft, nontender, nondistended, no hepatosplenomegaly appreciated. Bowel sounds present. Extremities: 2+ pulses in the radial and dorsalis pedis bilaterally. No evidence of clubbing or cyanosis. Assessment/Plan: 1. Fever with neck stiffness. It is possible that she may have had an aseptic meningitis, however her presentation does not fully fit this clinical picture. Given that she has been afebrile, has not had a leukocytosis, and her CRP is trending down, a Lyme titers are negative, her CSF evaluation has not yielded any etiology, and her clinical picture has significantly improved from prior; I recommend discontinuing all antibiotics at this time. Given that she has what appears to be a new murmur, I do believe that a transesophageal echocardiogram would be indicated to see if there are any vegetations present, according to the patient she is supposedly scheduled to have this performed tomorrow. If no vegetations are present, then she would be okay for discharge from an infectious disease standpoint. 2. Left thumb swelling. She is not complaining of this today, and this appears to have resolved. Rheumatoid factor and DEL were both negative. My preceptor for this patient encounter was physically present in the building during the encounter and was fully available. As needed, all aspects of the patient interview, examination, medical decision making process, and medical care plan development were reviewed and approved by the preceptor. Preceptor is aware and concurs with the plan as stated in the body of this note and will attest to such by his/her cosignature. VS,Fishbone, I+O VS, Fishbone, I+O Laboratory Tests 06/08/17 05:52 Red Blood Count 3.41 L, Mean Corpuscular Volume 85.3, Mean Corpuscular Hemoglobin 26.7 L, Mean Corpuscular Hemoglobin Concent 31.3 L, Red Cell Distribution Width 15.0 H, Calcium Level 8.0 L Vital Signs Date Time Temp Pulse Resp B/P (MAP) Pulse Ox O2 Delivery O2 Flow Rate FiO2 06/08/17 17:30 19 06/08/17 14:00 97.3 70 143/71 (95) 96 Room Air 06/03/17 01:10 2.0 KENJI ROSA DO Jun 08, 2017 17:56
[2017-06-08] MEDS: ACETAMINOPHEN TAB 650MG DOSE (2X325MG) PO PRN (18:46)
[2017-06-08 20:48] VITALS: BP 132/74
[2017-06-08] MEDS: ATORVASTATIN 10 MG TAB PO SCH (21:46)
[2017-06-08] MEDS: rOPINIRole 0.25 MG TAB(REQUIP) PO SCH (21:46)
[2017-06-08] MEDS: MONTELUKAST 10 MG TAB PO SCH (21:47)
[2017-06-08] MEDS: DIVALPROEX 500MG *ER* TAB PO SCH (21:47)
[2017-06-08 22:00] VITALS: BP 138/78
[2017-06-09 06:00] VITALS: BP 136/62
[2017-06-09 06:32] LABS: MEAN CORPUSCULAR HEMOGLOBIN 26.9 pg (27.0-33.0); MEAN CORPUSCULAR HGB CONC 31.4 g/dl (32.0-36.5); MEAN CORPUSCULAR VOLUME 85.7 fl (80.0-96.0); PLATELET COUNT, AUTOMATED 151 10^3/uL (150-450); RED CELL DISTRIBUTION WIDTH 14.8 % (11.5-14.5); WHITE BLOOD COUNT 2.9 10^3/uL (4.0-10.0)
[2017-06-09 06:47] LABS: ANION GAP 7 MEQ/L (8-16); BLOOD UREA NITROGEN 10 MG/DL (7-18); CALCIUM LEVEL 8.2 MG/DL (8.8-10.2); CARBON DIOXIDE LEVEL 28 MEQ/L (21-32); CHLORIDE LEVEL 107 MEQ/L (98-107); CREATININE FOR GFR 0.85 MG/DL (0.55-1.02); GLOMERULAR FILTRATION RATE > 60.0 (>39); GLUCOSE, FASTING 194 MG/DL (83-110); POTASSIUM SERUM 3.7 MEQ/L (3.5-5.1); SODIUM LEVEL 142 MEQ/L (136-145)
[2017-06-09] MEDS: HumaLOG INSULIN (NovoLOG) PER UNIT SC SCH ×4 (07:55→21:00)
[2017-06-09] MEDS: LEVEMIR (INSULIN DETEMIR) 1 UNITS/0.01ML SC SCH (07:55)
[2017-06-09] MEDS: PERCOCET 5MG/325MG TAB PO PRN (07:56)
[2017-06-09] MEDS: MIRALAX *UNIT DOSE* 17GM PACKET PO SCH (09:00)
[2017-06-09 09:20] VITALS: BP 132/72
[2017-06-09] MEDS: COLCHICINE 0.6 MG TAB PO SCH ×2 (09:52→21:33)
[2017-06-09] MEDS: LISINOPRIL *2.5 MG* TAB PO SCH (09:53)
[2017-06-09] MEDS: OMEPRAZOLE 20 MG CAP PO SCH (09:54)
[2017-06-09] MEDS: DIVALPROEX 500MG *ER* TAB PO SCH ×2 (09:54→21:33)
[2017-06-09] MEDS: CitaloPRAM (CeleXA) 20 MG TAB PO SCH (09:54)
[2017-06-09] MEDS: POTASSIUM CHLORIDE 10 MEQ SR TABLET PO SCH ×2 (09:55→21:32)
[2017-06-09] MEDS: FUROSEMIDE 40 MG TAB PO SCH (09:55)
[2017-06-09] MEDS: CYANOCOBALAMIN 500 MCG TAB PO SCH (09:56)
[2017-06-09] MEDS: PREGABALIN 100 MG CAP (LYRICA) PO SCH ×3 (10:14→21:32)
[2017-06-09] MEDS ORDERED: predniSONE 50 MG TAB PO ONE (11:00)
--- NOTE | 2017-06-09 11:22 | IPNPDOC ---
Text Note Date of Service The patient was seen on 06/09/17. NOTE Subjective: Pt states her BROWN is the same as yesterday - right parietal region. No vision changes. No CP/Palpitations. No SOB. No neuro symptoms/weakness. Objective: Vitals: (see below) General: No acute distress, laying comfortably in bed. HEENT: Moist mucous membranes. Neck: No JVD or lymphadenopathy Cardiac: RRR, 3/6 systolic murmur Pulm: Clear to auscultation b/l. No wheezing, rhonchi Abd: NT/ND + BS Ext: No edema or cyanosis Labs (see below) Images: Assessment/Plan 1. Complicated Migraines - with associated neck pain/degenerative cervical spine dz. Appreciate ID/Neuro input. Depakote increased/nortriptyline per neuro. MRI brain with no significant findings. Discussed with Dr. Moreno - nivia for temporal artery biopsy to r/o giant cell arteritis; Dr. Hurst consulted. Started on prednisone. 2. ? Vegetation on echo - pending DANIELLE on Wednesday; Dr. Parker on board. 3. Hypokalemia resolved 4. Pancytopenia - likely 2/2 acute illness. stable. No need to transfusion at this time. 5. HTN - cont home meds 6. DM - cont levemir. Hold home PO meds 7. BPPV - PRN Meclizine 8. RLS - Cont home meds 9. GERD - on PPI 10. Asthma - stable. on singular 11. Thumb pain improving. On colchicine DVT prophy: SCDs VS,Fishbone, I+O VS, Fishbone, I+O Laboratory Tests 06/09/17 05:27 Calcium Level 8.2 L 06/09/17 05:28 Red Blood Count 3.35 L, Mean Corpuscular Volume 85.7, Mean Corpuscular Hemoglobin 26.9 L, Mean Corpuscular Hemoglobin Concent 31.4 L, Red Cell Distribution Width 14.8 H Vital Signs Date Time Temp Pulse Resp B/P (MAP) Pulse Ox O2 Delivery O2 Flow Rate FiO2 06/09/17 09:53 132/72 06/09/17 09:25 72 18 06/09/17 06:00 98.0 98 06/08/17 22:00 Room Air 06/03/17 01:10 2.0 CAPRI ROSSI MD Jun 09, 2017 11:22
[2017-06-09 14:00] VITALS: BP 140/70
[2017-06-09] MEDS: ACETAMINOPHEN TAB 650MG DOSE (2X325MG) PO PRN (19:32)
[2017-06-09 20:00] VITALS: BP 132/64
[2017-06-09] MEDS: MONTELUKAST 10 MG TAB PO SCH (21:32)
[2017-06-09] MEDS: rOPINIRole 0.25 MG TAB(REQUIP) PO SCH (21:33)
[2017-06-09] MEDS: ATORVASTATIN 10 MG TAB PO SCH (21:33)
[2017-06-10] VITALS (7 sets, daily range): BP systolic 115–150; BP diastolic 60–72
[2017-06-10] MEDS: LISINOPRIL *2.5 MG* TAB PO SCH (08:23)
[2017-06-10] MEDS: OMEPRAZOLE 20 MG CAP PO SCH (08:23)
[2017-06-10] MEDS: FUROSEMIDE 40 MG TAB PO SCH (08:23)
[2017-06-10] MEDS: PREGABALIN 100 MG CAP (LYRICA) PO SCH ×3 (08:24→21:56)
[2017-06-10] MEDS: CitaloPRAM (CeleXA) 20 MG TAB PO SCH (08:24)
[2017-06-10] MEDS: DIVALPROEX 500MG *ER* TAB PO SCH ×2 (08:24→21:55)
[2017-06-10] MEDS: CYANOCOBALAMIN 500 MCG TAB PO SCH (08:24)
[2017-06-10] MEDS: COLCHICINE 0.6 MG TAB PO SCH ×2 (08:24→21:56)
[2017-06-10] MEDS: HumaLOG INSULIN (NovoLOG) PER UNIT SC SCH ×4 (08:25→22:03)
[2017-06-10] MEDS: predniSONE 50 MG TAB PO SCH (08:25)
[2017-06-10] MEDS: POTASSIUM CHLORIDE 10 MEQ SR TABLET PO SCH ×2 (08:25→21:56)
[2017-06-10] MEDS: MIRALAX *UNIT DOSE* 17GM PACKET PO SCH (08:26)
[2017-06-10] MEDS: LEVEMIR (INSULIN DETEMIR) 1 UNITS/0.01ML SC SCH (08:26)
[2017-06-10 08:38] LABS: EOS % 0.4 % (0.0-3.0); IMMATURE GRANULOCYTE % 0.2 % (0-0); LYMPH # 1.2 10^3/uL (1.5-4.5); LYMPH % 25.3 % (24.0-44.0); MEAN CORPUSCULAR VOLUME 84.6 fl (80.0-96.0); MONO # 0.3 10^3/uL (0.0-0.8); MONO % 6.5 % (0.0-5.0); NEUTROPHILS # 3.1 10^3/uL (1.8-7.7); NEUTROPHILS % 67.6 % (36.0-66.0); PLATELET COUNT, AUTOMATED 172 10^3/uL (150-450); RED CELL DISTRIBUTION WIDTH 14.9 % (11.5-14.5); WHITE BLOOD COUNT 4.6 10^3/uL (4.0-10.0)
[2017-06-10 09:10] LABS: ANION GAP 6 MEQ/L (8-16); BLOOD UREA NITROGEN 14 MG/DL (7-18); CALCIUM LEVEL 8.3 MG/DL (8.8-10.2); CARBON DIOXIDE LEVEL 30 MEQ/L (21-32); CHLORIDE LEVEL 106 MEQ/L (98-107); CREATININE FOR GFR 0.82 MG/DL (0.55-1.02); GLOMERULAR FILTRATION RATE > 60.0 (>39); GLUCOSE, FASTING 200 MG/DL (83-110); POTASSIUM SERUM 3.8 MEQ/L (3.5-5.1); SODIUM LEVEL 142 MEQ/L (136-145)
--- NOTE | 2017-06-10 11:27 | IPNPDOC ---
Text Note Date of Service The patient was seen on 06/10/17. NOTE Subjective: Pt states her BROWN has resolved since yesterday. No vision changes. No CP/Palpitations. Objective: Vitals: (see below) General: No acute distress, laying comfortably in bed. HEENT: Moist mucous membranes. Neck: No JVD or lymphadenopathy Cardiac: RRR, 3/6 systolic murmur Pulm: Clear to auscultation b/l. No wheezing, rhonchi Abd: NT/ND + BS Ext: No edema or cyanosis Labs (see below) Images: Assessment/Plan 1. Complicated Migraines - with associated neck pain/degenerative cervical spine dz. Appreciate ID/Neuro input. Depakote increased/nortriptyline per neuro. MRI brain with no significant findings. Discussed with Dr. Moreno - plan for temporal artery biopsy to r/o giant cell arteritis; Dr. Hurst consulted. On prednisone. 2. ? Vegetation on echo - pending DANIELLE on Wednesday; Dr. Parker on board. 3. Hypokalemia resolved 4. Pancytopenia - likely 2/2 acute illness. stable. No need to transfusion at this time. 5. HTN - cont home meds 6. DM - cont levemir. Hold home PO meds 7. BPPV - PRN Meclizine 8. RLS - Cont home meds 9. GERD - on PPI 10. Asthma - stable. on singular 11. Thumb pain improving. On colchicine DVT prophy: SCDs VS,Fishbone, I+O VS, Fishbone, I+O Laboratory Tests 06/10/17 08:32 Red Blood Count 3.44 L, Mean Corpuscular Volume 84.6, Mean Corpuscular Hemoglobin 27.0, Mean Corpuscular Hemoglobin Concent 32.0, Red Cell Distribution Width 14.9 H, Neutrophils (%) (Auto) 67.6 H, Lymphocytes (%) (Auto ) 25.3, Monocytes (%) (Auto) 6.5 H, Eosinophils (%) (Auto) 0.4, Basophils (%) ( Auto) 0.0, Neutrophils # (Auto) 3.1, Lymphocytes # (Auto) 1.2 L, Monocytes # ( Auto) 0.3, Eosinophils # (Auto) 0.0, Basophils # (Auto) 0.0, Calcium Level 8.3 L Vital Signs Date Time Temp Pulse Resp B/P (MAP) Pulse Ox O2 Delivery O2 Flow Rate FiO2 06/10/17 08:23 115/60 06/10/17 06:00 97.5 73 18 97 Room Air CAPRI ROSSI MD Jun 10, 2017 11:27
[2017-06-10] MEDS ORDERED: LEVEMIR (INSULIN DETEMIR) 1 UNITS/0.01ML SC ONE (11:30)
[2017-06-10] MEDS ORDERED: PROPOFOL 200 MG/20 ML VIAL As Ordered ONE (12:39)
[2017-06-10] MEDS ORDERED: LIDOCAINE 2% INJ 100 MG/5 ML SDV (FOR ANES.) As Ordered ONE (12:39)
[2017-06-10] MEDS ORDERED: MIDAZOLAM INJ 2 MG/2 ML VIAL (J2250) As Ordered ONE (12:40)
[2017-06-10] MEDS ORDERED: fentaNYL 100 MCG/2 ML INJECTION (J3010) As Ordered ONE (12:40)
[2017-06-10] MEDS ORDERED: LIDOCAINE W/EPINEPHRINE 1% 20ML VIAL As Ordered ONE (13:22)
[2017-06-10] MEDS ORDERED: LIDOCAINE 1% MDV 20ML VIAL As Ordered ONE (13:26)
[2017-06-10] MEDS ORDERED: ONDANSETRON 4MG/2ML VIAL (J2405) As Ordered ONE (13:36)
[2017-06-10] MEDS ORDERED: LR 1,000 ML IV SCH (15:00)
[2017-06-10] MEDS ORDERED: fentaNYL 100 MCG/2 ML INJECTION (J3010) IV PRN (15:00)
[2017-06-10] MEDS ORDERED: ONDANSETRON 4MG/2ML VIAL (J2405) IV PRN (15:00)
--- NOTE | 2017-06-10 16:55 | IPN ---
DATE: 06/10/2017 Lela seems to be doing much better. She denies any headache or neck stiffness. No fever or chills. She had a temporal artery biopsy today and tomorrow she is scheduled for a transesophageal echocardiogram. Labs have improved, the white count is 4.6, hemoglobin 9.3, hematocrit 29.1, platelets 172. ESR 43 down from 61. Cultures have all come back negative. CSF and multiplex PCR. Blood cultures negative. On physical examination, temperature is 99.5, pulse 74, respirations 18, blood pressure 150/72, oxygen saturation 95% on room air. Heart normal S1, S2 with a holosystolic murmur 2-3 over 6 at the left upper sternal border. Lungs are clear. Abdomen is soft, nontender. Neck is supple. IMPRESSION: 1. Polyarthritis with severe neck stiffness, elevated sedimentation rate, CRP and pancytopenia, improving. Temporal biopsy done to rule out temporal arteritis. There is no evidence of meningitis. 2. Abnormal echocardiogram with moderate aortic stenosis, questionable vegetation need to be ruled out and therefore DANIELLE to be scheduled tomorrow. PLAN: Transesophageal echocardiogram in the morning. The patient on prednisone for possible temporal arteritis pending results of biopsy.
[2017-06-10] MEDS: rOPINIRole 0.25 MG TAB(REQUIP) PO SCH (21:56)
[2017-06-10] MEDS: ATORVASTATIN 10 MG TAB PO SCH (21:56)
[2017-06-10] MEDS: MONTELUKAST 10 MG TAB PO SCH (21:56)
[2017-06-11] MEDS ORDERED: LOPERAMIDE 2 MG CAP PO PRN
[2017-06-11 02:45] VITALS: BP 152/70
[2017-06-11 06:00] VITALS: BP 147/65
[2017-06-11 06:12] LABS: MEAN CORPUSCULAR HEMOGLOBIN 26.6 pg (27.0-33.0); MEAN CORPUSCULAR VOLUME 85.7 fl (80.0-96.0); PLATELET COUNT, AUTOMATED 183 10^3/uL (150-450); RED CELL DISTRIBUTION WIDTH 15.2 % (11.5-14.5); WHITE BLOOD COUNT 5.2 10^3/uL (4.0-10.0)
[2017-06-11 06:14] LABS: CALCIUM LEVEL 8.5 MG/DL (8.8-10.2); CREATININE FOR GFR 0.99 MG/DL (0.55-1.02); GLOMERULAR FILTRATION RATE 57.9 (>39); MAGNESIUM LEVEL 1.6 MG/DL (1.8-2.4); POTASSIUM SERUM 3.6 MEQ/L (3.5-5.1)
[2017-06-11 07:03] LABS: ERYTHROCYTE SEDIMENTATION RATE 39 mm/hr (0-30)
[2017-06-11] MEDS: HumaLOG INSULIN (NovoLOG) PER UNIT SC SCH ×2 (07:30→13:18)
[2017-06-11] MEDS ORDERED: LEVEMIR (INSULIN DETEMIR) 1 UNITS/0.01ML SC SCH (09:00)
[2017-06-11] MEDS ORDERED: MAG SULF 1GM/100ML (MAG RUN) 1 GM in APPROPRIATE DILUENT 1 EA IV ONE (09:00)
[2017-06-11] MEDS: PREGABALIN 100 MG CAP (LYRICA) PO SCH (09:14)
[2017-06-11] MEDS: FUROSEMIDE 40 MG TAB PO SCH (09:14)
[2017-06-11] MEDS: POTASSIUM CHLORIDE 10 MEQ SR TABLET PO SCH (09:14)
[2017-06-11] MEDS: LISINOPRIL *2.5 MG* TAB PO SCH (09:16)
[2017-06-11] MEDS: CYANOCOBALAMIN 500 MCG TAB PO SCH (09:16)
[2017-06-11] MEDS: OMEPRAZOLE 20 MG CAP PO SCH (09:17)
[2017-06-11] MEDS: CitaloPRAM (CeleXA) 20 MG TAB PO SCH (09:17)
[2017-06-11] MEDS: DIVALPROEX 500MG *ER* TAB PO SCH (09:18)
[2017-06-11] MEDS: predniSONE 50 MG TAB PO SCH (09:43)
[2017-06-11] MEDS: COLCHICINE 0.6 MG TAB PO SCH (09:43)
[2017-06-11 10:00] VITALS: BP 168/78
[2017-06-11] MEDS ORDERED: LEVEMIR (INSULIN DETEMIR) 1 UNITS/0.01ML SC ONE (10:00)
--- NOTE | 2017-06-11 10:26 | RO ---
DATE OF PROCEDURE: 06/10/2017 PREOPERATIVE DIAGNOSIS: Right-sided headache, evaluate for giant cell arteritis (temporal arteritis). POSTOPERATIVE DIAGNOSIS: Right-sided headache, evaluate for giant cell arteritis (temporal arteritis). PROCEDURE PERFORMED: Right superficial temporal artery biopsy. SURGEON: Dr. Ivan Hurst [employer]: ANESTHESIA: Local of 1% Xylocaine with monitored anesthesia care. INDICATIONS FOR PROCEDURE: The patient is a 76-year-old woman who was admitted to the hospital with severe neck pain and suggestions of meningitis. She has undergone an extensive workup. She has also complained of a right-sided headache and was found to have an elevated erythrocyte sedimentation rate. The diagnosis of temporal arteritis was entertained and I was consulted to perform a biopsy of the right superficial temporal artery. OPERATIVE PROCEDURE: The patient was placed on the operating table in a left lateral decubitus position. Her pressure points were padded. She received sedation as needed from anesthesia. The right preauricular area was prepped and draped in a sterile fashion. 1% Xylocaine was infiltrated in the preauricular area over the area of the palpable superficial temporal pulse. An approximately 3 cm skin incision was made. This was deepened into the subcutaneous tissues. Hemostasis was ensured with the cautery. The superficial fascia was opened and the artery was clearly identified. The artery was dissected free over a distance of perhaps 1 to 1.5 cm. This was ligated proximally and distally and a small side branch was also ligated. All of these ligations were with #4-0 chromic. This portion of the artery was then excised and sent as a permanent specimen. The wound was inspected and hemostasis was ensured. The deeper tissues were approximated with buried #4-0 chromic. The skin edges were brought into apposition with some buried chromic and the skin edges were closed with a running subcuticular #5-0 Vicryl and Steri-Strips. The patient tolerated the procedure well without apparent complication. She was awakened and transported to the recovery room in stable condition.
--- NOTE | 2017-06-11 11:50 | IPNPDOC ---
Text Note Date of Service The patient was seen on 06/11/17. NOTE Subjective: No recurrent BROWN. S/p temporal artery biopsy yest. No CP/ Palpitations. Awaiting DANIELLE. Objective: Vitals: (see below) General: No acute distress, laying comfortably in bed. HEENT: Moist mucous membranes. Right temporal artery biopsy site clean and dry. Minimal tenderness to palpation. No erythema or signs of infection. Neck: No JVD or lymphadenopathy Cardiac: RRR, 3/6 systolic murmur Pulm: Clear to auscultation b/l. No wheezing, rhonchi Abd: NT/ND + BS Ext: No edema or cyanosis Labs (see below) Images: Assessment/Plan 1. Complicated Migraines - with associated neck pain/degenerative cervical spine dz. Appreciate ID/Neuro input. Depakote increased/nortriptyline per neuro. MRI brain with no significant findings. Temporal artery biopsy to r/o giant cell arteritis done by Dr. Hurst 06/10, result pending. On prednisone. 2. ? Vegetation on echo - pending DANIELLE today; Dr. Parker on board. 3. Hypokalemia resolved 4. Pancytopenia - likely 2/2 acute illness. stable. No need to transfusion at this time. 5. HTN - cont home meds 6. DM - cont levemir. Hold home PO meds 7. BPPV - PRN Meclizine 8. RLS - Cont home meds 9. GERD - on PPI 10. Asthma - stable. on singular 11. Thumb pain improving. On colchicine DVT prophy: SCDs VS,Fishbone, I+O VS, Fishbone, I+O Laboratory Tests 06/11/17 05:40 Red Blood Count 3.50 L, Mean Corpuscular Volume 85.7, Mean Corpuscular Hemoglobin 26.6 L, Mean Corpuscular Hemoglobin Concent 31.0 L, Red Cell Distribution Width 15.2 H, Calcium Level 8.5 L Vital Signs Date Time Temp Pulse Resp B/P (MAP) Pulse Ox O2 Delivery O2 Flow Rate FiO2 06/11/17 09:16 133/62 06/11/17 06:00 98.1 64 16 95 Room Air I&O- Last 24 Hours up to 6 AM 06/12/17 06:00 Intake Total 0 ml Balance 0 ml CAPRI ROSSI MD Jun 11, 2017 11:50
[2017-06-11 12:00] VITALS: BP 168/78
[2017-06-11] MEDS ORDERED: LISINOPRIL 5 MG TAB PO ONE (12:00)
[2017-06-11] MEDS ORDERED: PRED20TA PO (13:39)
[2017-06-11] MEDS ORDERED: DEPA500T2 PO (13:39)
[2017-06-11 14:00] VITALS: BP 161/75
[2017-06-11] MEDS ORDERED: LISI-542 PO (14:09)
--- NOTE | 2017-06-11 14:17 | DS.PDOC ---
Discharge Summary General Date of Admission Jun 03, 2017 at 02:12 Date of Discharge 06/11/17 Attending Physician: CAPRI ROSSI MD Specialist/Consultants Involve: MICHAEL MORENO MD Specialist/Consultants Involve Dr. Ryder, Dr. Cook Discharge Summary PROCEDURES PERFORMED DURING STAY: Temporal artery biopsy ADMITTING/DISCHARGE DIAGNOSES: 1. Complicated Migraines 2. ? Vegetation on echo - pending DANIELLE with Dr. Parker 3. ?Temporal arteritis - s/p biopsy, results pending. 4. Pancytopenia 5. HTN 6. DM 7. BPPV 8. RLS 9. GERD 10. Asthma COMPLICATIONS/CHIEF COMPLAINT: BROWN HISTORY OF PRESENT ILLNESS/HOSPITAL COURSE: Is a 76-year-old with past medical history of diabetes, hypertension who presents complaining of severe headaches. Patient had extensive workup for meningitis including MRI of the brain/lumbar puncture with no significant findings noted. Given the patient's elevated ESR, the patient did have a temporal artery biopsy and was placed on prednisone pending results. Has been admitted to Dr. Moreno who recommended 50 mg daily for 1 week, then 40 mg daily for 2 weeks, and will need to follow-up in the next 2 weeks prior to determining whether to continue prednisone depending on biopsy results. In addition, the patient did have an echocardiogram with possible vegetation. She was scheduled to have a DANIELLE, however probe was not functional and was being repaired. Has spoken to Dr. yRder, who states the patient can have this done outpatient as her blood cultures were negative, and suspicion is low. I have spoken to Dr. Parker who states he will follow-up with the patient next week and have this scheduled. The patient is hemodynamically stable, will be discharged home with close follow -up with Dr. Moreno, PCP, Dr. Hurst, Dr. Parker. DISCHARGE MEDICATIONS: Please see below. ALLERGIES: Please see below. PHYSICAL EXAMINATION ON DISCHARGE: Vitals: (see below) General: No acute distress, laying comfortably in bed. HEENT: Moist mucous membranes. Right temporal artery biopsy site clean and dry. Minimal tenderness to palpation. No erythema or signs of infection. Neck: No JVD or lymphadenopathy Cardiac: RRR, 3/6 systolic murmur Pulm: Clear to auscultation b/l. No wheezing, rhonchi Abd: NT/ND + BS Ext: No edema or cyanosis LABORATORY DATA: Please see below. IMAGING: PROGNOSIS: Guarded ACTIVITY: As tolerated. DIET: Low-sodium DISCHARGE PLAN/DISPOSITION: Discharge home DISCHARGE INSTRUCTIONS: 1. Follow-up with PCP, Dr. Moreno, Dr. Hurst in 1-2 weeks. Follow up with Dr. Parker within the next week. Referral has been sent to Dr. Parker's office. DISCHARGE CONDITION: Stable. TIME SPENT ON DISCHARGE: Greater than 30 minutes. Vital Signs/I&Os Vital Signs Date Time Temp Pulse Resp B/P (MAP) Pulse Ox O2 Delivery O2 Flow Rate FiO2 06/11/17 12:00 168/78 06/11/17 10:00 97.3 70 18 95 Room Air I&O- Last 24 Hours up to 6 AM 06/12/17 06:00 Intake Total 0 ml Output Total 1000 ml Balance -1000 ml Laboratory Data Labs 24H Laboratory Tests 2 06/10/17 16:58: Bedside Glucose (Misc Panel) 249H 06/10/17 21:54: Bedside Glucose (Misc Panel) 253H 06/11/17 05:40: Nucleated Red Blood Cells % (auto) 0.0, Erythrocyte Sedimentation Rate 39H, Anion Gap 7L, Glomerular Filtration Rate 57.9, Blood Urea Nitrogen 17, Creatinine 0.99, Sodium Level 142, Potassium Level 3.6, Chloride Level 106, Carbon Dioxide Level 29, Calcium Level 8.5L, Magnesium Level 1.6L, C-Reactive Protein, Quantitative 0.85H 06/11/17 11:49: Bedside Glucose (Misc Panel) 168H CBC/BMP Laboratory Tests 06/11/17 05:40 Red Blood Count 3.50 L, Mean Corpuscular Volume 85.7, Mean Corpuscular Hemoglobin 26.6 L, Mean Corpuscular Hemoglobin Concent 31.0 L, Red Cell Distribution Width 15.2 H, Calcium Level 8.5 L FSBS Laboratory Tests Test 06/10/17 16:58 06/10/17 21:54 06/11/17 11:49 Range/Units Bedside Glucose (Misc Panel) 249 253 168 83-110 MG/DL Microbiology Microbiology 06/03/17 Blood Culture - Final, Complete NO GROWTH AFTER 5 DAYS 06/02/17 Blood Culture - Final, Complete NO GROWTH AFTER 5 DAYS 06/03/17 Gram Stain - Final, Complete 06/03/17 CSF Culture - Final, Complete 06/03/17 Gram Stain - Final, Complete 06/03/17 CSF Culture - Final, Complete 06/03/17 - Final, Complete 06/10/17 Gastrointestinal Tract Panel (PCR) - Final, Complete 06/02/17 Respiratory Virus Panel (PCR) (DARIUS) - Final, Complete 06/02/17 Urine Culture - Final, Complete Discharge Medications Scheduled (Tylenol Pm Extra Strength 500-25 mg) 1 Tab Tab, 2 TAB PO QHS, (Reported) Atorvastatin Calcium (Atorvastatin Calcium) 10 Mg Tab, 10 MG PO QHS, (Reported) Citalopram Hydrobromide (Celexa) 20 Mg Tab, 20 MG PO DAILY, (Reported) Cyanocobalamin (Vitamin B-12) 500 Mcg Tab, 500 MCG PO DAILY, (Reported) Divalproex Sodium (Depakote ER) 500 Mg Tab, 500 MG PO BID Furosemide (Furosemide) 40 Mg Tab, 40 MG PO DAILY, (Reported) Glimepiride (Glimepiride) 2 Mg Tab, 2 MG PO DAILY, (Reported) Insulin Glargine (Lantus) 100 Unit/Ml Inj, 40 UNIT INJ DAILY, (Reported) Levocetirizine Dihydrochloride (Xyzal) 5 Mg Tab, 5 MG PO QHS, (Reported) Lisinopril (Lisinopril) 5 Mg Tab, 5 MG PO DAILY Montelukast Sodium (Montelukast Sodium) 10 Mg Tab, 10 MG PO QHS, (Reported) Omeprazole (Omeprazole) 20 Mg Cap, 20 MG PO DAILY, (Reported) Potassium Chloride (Klor-Con M10) 10 Meq Tabcr, 10 MEQ PO BID, (Reported) Prednisone (Prednisone) 20 Mg Tab, 20 MG PO ASDIRECTED Take 2 1/2 tab for 1 week, then 2 tab for [address] Moreno's office before completing for more directions. Pregabalin (Lyrica) 100 Mg Cap, 100 MG PO TID, (Reported) Ropinirole Hydrochloride (Requip) 0.5 Mg Tab, 0.5 MG PO QHS, (Reported) Sitagliptin Phosphate (Januvia) 100 Mg Tab, 100 MG PO DAILY, (Reported) Scheduled PRN Artificial Tears (Artificial Tears) 1.4 % Nova, 1 DROP OU QID PRN for DRY EYES, ( Reported) Meclizine HCl (Meclizine HCl) 25 Mg Tab, 25 MG PO Q8H PRN for VERTIGO/DIZZINESS, (Reported) Oxycodone/Acetaminophen (Oxycodone/Acetaminophen 5-325 mg) 1 Tab Tab, 1 TAB PO TID PRN for PAIN, (Reported) Allergies Coded Allergies: Cephalosporins (Verified Allergy, Intermediate, RASH FROM HEAD TO TOE, 10/28) Penicillins (Verified Allergy, Intermediate, RASH, 06/03/17) Epinephrine (Verified Allergy, Unknown, 10/28/12) Lidocaine (Verified Allergy, Unknown, 10/28/12) TAPE (Verified Allergy, Unknown, 01/16/15) CAPRI ROSSI MD Jun 11, 2017 14:17
--- NOTE | 2017-06-11 15:55 | IPN ---
DATE: 06/11/2017 The patient is now 1 day postoperative from a right superficial temporal artery biopsy. Pathology is still pending. Vital signs are stable and her intake and output is well-balanced. PHYSICAL EXAMINATION: She is sitting up in a chair looking comfortable. She has a small dressing anterior to the right ear and there is no swelling or bruising evident. Steri-Strips remain in place. IMPRESSION: Doing well post temporal artery biopsy. PLAN: I advised the patient that we await her pathology. The treatment based on this would be directed by the hospitalist. She was to have a transesophageal echocardiogram today but apparently the equipment is not functioning. I advised her that she can shower 24 hours after the procedure and she could be discharged whenever the medicine service feels she is stable.
--- NOTE | 2017-06-11 16:30 | IPN ---
DATE: 06/11/2017 Lela is doing great. She denies any headache, neck stiffness. No fever or chills. No nausea, vomiting or diarrhea. No abdominal pain. She is anxious to go home. Her transesophageal echocardiogram was not done as the probe is broken. She is scheduled to have it done as an outpatient for an of abnormal echocardiogram and a questionable vegetation. LABORATORY DATA: White count is 5.2, hemoglobin 9.3, hematocrit 30, platelets 183. ESR is 39 down from 61, sodium 142, potassium 3.6, chloride 106, bicarbonate 29, BUN 17, creatinine 0.9, glucose 141, calcium 8.5, magnesium 1.6, CRP 0.85. Lyme serology was negative. Coxiella DNA PCR was ordered and is pending. Rheumatoid factor is less than 10. DEL is negative. On physical exam, temperature is 97.4, pulse 75, respirations 16, blood pressure 161/75, oxygen saturation 96% on room air. Neck: No stiffness. Joints: No swelling. Heart: Normal S1, S2 with a systolic ejection murmur 2/6, best heard at the left upper sternal border. Lungs are clear. IMPRESSION: 1. Fever of unknown origin with elevated inflammatory markers, CRP, sedimentation rate and polyarthritis and joint stiffness. Etiology remains unclear. 2. Abnormal echocardiogram with moderate aortic stenosis and a questionable vegetation on the aortic valve. PLAN: The patient will be scheduled for a transesophageal echocardiogram as an outpatient to be done by Dr. Parker to rule out vegetation. If she has endocarditis that will be a culture negative endocarditis and therefore, she will need to be worked up for culture negative endocarditis with Coxiella, Bartonella serology. The patient has four cats, but they are all indoor cats and they do not have fleas, so the chances of having Bartonella and Coxiella are very unlikely, which are more seen in homeless alcoholic patients. The patient could be discharged home today with outpatient transesophageal echocardiogram (DANIELLE). Edited 06/11/2017 charlie
== END 2017-06-11 16:00 | disposition home or self-care (01) | DRG 41 ==
LOC: M ED 19:02 → M ED INP 06-03 02:12 → M MSPAV 06-03 02:59
PROVIDERS: ATTEND Internal Medicine
PROC: 03BS0ZX Excision of Right Temporal Artery, Open Approach, Diagnostic (ICD-10-PCS; principal; 2017-06-10 13:00)
DX: G43.101 Migraine with aura, not intractable, with status migrainosus (principal); D61.818 Other pancytopenia; I10 Essential (primary) hypertension; E11.9 Type 2 diabetes mellitus without complications; E78.5 Hyperlipidemia, unspecified; G25.81 Restless legs syndrome; F41.9 Anxiety disorder, unspecified; K21.9 Gastro-esophageal reflux disease without esophagitis; E03.9 Hypothyroidism, unspecified; H81.10 Benign paroxysmal vertigo, unspecified ear; J45.909 Unspecified asthma, uncomplicated; M10.042 Idiopathic gout, left hand; M43.12 Spondylolisthesis, cervical region; E87.6 Hypokalemia; M71.22 Synovial cyst of popliteal space [Baker], left knee; M48.061 Spinal stenosis, lumbar region without neurogenic claudication; R50.9 Fever, unspecified; I35.0 Nonrheumatic aortic (valve) stenosis; Z88.0 Allergy status to penicillin; Z88.8 Allergy status to other drugs, medicaments and biological substances; Z91.048 Other nonmedicinal substance allergy status; Z98.1 Arthrodesis status; Z79.4 Long term (current) use of insulin; Z79.899 Other long term (current) drug therapy; Z88.1 Allergy status to other antibiotic agents

== ENCOUNTER 2017-07-07 12:39 | Day surgery (SDC) | payer MEDICARE, BC, OTHER ==
[~2017-07-07] VITALS: Ht 165.1 cm; Wt 89.4 kg
[~2017-07-07 12:39] MED LIST changes: +ARTI99.0 OU; +ATOR1TAB19 PO; +ATOR1TAB21 PO; +DEPA500T2 PO; +FURO40TA2 PO; +GLIM2TAB PO; +INSULADS INJ; +JANU100T PO; +K-TA10TA2 PO; +KEFL500C17 PO; +LANTINJ4 SC; +LASI40TA PO; +LEVOPOW56 XX; +LISI-542 PO; +LISI2.5T3 PO; +LISI2.5T4 GT; +MECL-68 PO; +MONT10TA2 PO; +OMEP20CA3 PO; +OMEP40CA2 PO; +OXYC1TAB23 PO; +POTA10CA PO; +PRED20TA PO; +REQU1TAB15 PO; +SING10TA32 PO; +TYLE1TAB5 PO; +VITA500T3 PO; +XYZA5TAB2 PO
[2017-07-07] MEDS ORDERED: LISI2.5T3 PO (13:06)
[2017-07-07] MEDS ORDERED: NS 1,000 ML IV SCH (13:15)
[2017-07-07] MEDS ORDERED: LIDOCAINE VISCOUS 2% SOLN 15ML UDC As Ordered ONE (13:21)
[2017-07-07] MEDS ORDERED: MIDAZOLAM INJ 2 MG/2 ML VIAL (J2250) As Ordered ONE ×2 (13:46→13:47)
[2017-07-07] MEDS ORDERED: MIDAZOLAM INJ 2 MG/2 ML VIAL (J2250) IV ONE (15:00)
--- NOTE | 2017-07-07 15:05 | T-ECHO ---
DATE OF PROCEDURE: 07/07/2017 REFERRING PHYSICIAN: PREPROCEDURE DIAGNOSES: Subacute bacterial endocarditis (aortic and mitral valve , [place]). POSTPROCEDURE DIAGNOSIS: Aortic valve sclerosis with mild regurgitation, mild mitral valve prolapse and mild mitral annular calcification with very mild mitral regurgitation, no vegetations. FINDINGS: Aortic valve sclerosis with mild regurgitation, mild mitral valve prolapse and mild mitral annular calcification with very mild mitral regurgitation, no vegetations. PROCEDURE: Transesophageal echocardiogram. PROCEDURE PERFORMED BY: Rich Parker MD SERVICE NOW DEVELOPER: None. LIGHT CONSCIOUS SEDATION: Midazolam 4 mg IV. COMPLICATIONS: None. DESCRIPTION OF PROCEDURE: The patient was given Cetacaine spray in the back of the pharynx. Rhythm was sinus. She received a total of 4 mg of midazolam IV for IV conscious sedation. The patient tolerated the procedure well without any immediate complications. Esophageal intubation was accomplished a moderate degree of difficulty using a Yuliana multiplane two-dimensional transesophageal echocardiogram probe without difficulty. The left and right ventricles appeared normal in size and systolic function and without regional wall motion abnormalities of the left ventricle. Atrial septum was intact anatomically and by color flow Doppler. No masses or thrombi were seen within the atria or their appendages. Aortic valve was three-cusped with moderate focal thickening and focal calcific deposits. No vegetations on the aortic valve. No aortic stenosis. Mild central aortic regurgitation was present. Mild mitral annular calcification and mild mitral valve prolapse was present. Very mild mitral regurgitation was present. No vegetations on the mitral valve. Tricuspid valve was normal. Pulmonic valve was not well visualized. No pericardial effusion. Distal aortic arch and descending thoracic aorta were normal. CONCLUSIONS: 1. No vegetations. 2. Moderate aortic valve sclerosis of a 3-cusp aortic valve. Mild aortic regurgitation. No aortic stenosis. 3. Mild mitral valve prolapse and mild mitral annular calcification, very mild mitral regurgitation. Copy: Dr. Rich SILVA
[2017-07-07 15:10] VITALS: BP 14/75
== END 2017-07-07 15:25 | disposition home or self-care (01) ==
LOC: M OPP 12:39
PROVIDERS: ATTEND Internal Medicine Cardiovascular Disease
DX: I35.2 Nonrheumatic aortic (valve) stenosis with insufficiency (principal); I39 Endocarditis and heart valve disorders in diseases classified elsewhere; I10 Essential (primary) hypertension; E66.09 Other obesity due to excess calories; Z71.3 Dietary counseling and surveillance; Z79.4 Long term (current) use of insulin; Z79.899 Other long term (current) drug therapy; Z88.0 Allergy status to penicillin; Z88.8 Allergy status to other drugs, medicaments and biological substances; Z91.048 Other nonmedicinal substance allergy status
CPT/HCPCS: 93312; 93320; 93325; J2250

== ENCOUNTER → 2018-09-09 | Outpatient (REF) | payer MEDICARE, OTHER ==
[~2018-09-09] MED LIST changes: +KLOR10TA76 PO; -LASI40TA PO; +LASI40TA9 PO; -LISI2.5T3 PO; -LISI2.5T4 GT; +LISI2.5T5 PO; +LISI2.5T76 GT; -POTA10CA PO; +REQU0.5T PO; -REQU1TAB15 PO
[2018-09-09 18:59] LABS: PERCENT SATURATION 12.1 % (13.2-45.0)
== END ==
LOC: M LAB REF 16:27
PROVIDERS: ATTEND Internal Medicine
DX: D64.9 Anemia, unspecified (principal)

== ENCOUNTER 2018-12-07 08:26 | Emergency (ER) | payer MEDICARE, BC, OTHER ==
[~2018-12-07] VITALS: Ht 157.5 cm; Wt 83.0 kg
[~2018-12-07 08:26] MED LIST changes: -/CELE20CA PO; -/ROPI5TA PO; +CELE1CAP4 PO; +LISI-1046 PO; -LISI2.5T5 PO; +REQU1TAB15 PO
[2018-12-07] MEDS ORDERED: ASPI81TA85 PO (08:42)
[2018-12-07] MEDS ORDERED: TOUJ1.2I SC (08:42)
[2018-12-07] MEDS ORDERED: TRUL10IN SC (08:42)
[2018-12-07] MEDS ORDERED: CYMB1CAP5 PO ×2 (08:42→13:17)
[2018-12-07] MEDS ORDERED: ACET-683 PO (08:42)
[2018-12-07] MEDS ORDERED: DIGOXIN INJ 0.5 MG/2 ML AMP (J1160) IV ONE (09:00)
[2018-12-07] MEDS ORDERED: NS 500 ML IV ONE (09:00)
[2018-12-07] MEDS ORDERED: ASPIRIN 81 MG CHEW TABLET PO ONE (09:15)
[2018-12-07 09:16] LABS: BASO % 0.3 % (0.0-1.0); EOS # 0.1 10^3/uL (0.0-0.50); EOS % 1.4 % (0.0-3.0); HEMATOCRIT 39.8 % (36.0-47.0); HEMOGLOBIN 12.4 g/dl (12.0-15.5); LYMPH # 1.4 10^3/uL (1.5-4.5); LYMPH % 19.3 % (24.0-44.0); MEAN CORPUSCULAR HEMOGLOBIN 26.3 pg (27.0-33.0); MEAN CORPUSCULAR HGB CONC 31.2 g/dl (32.0-36.5); MEAN CORPUSCULAR VOLUME 84.3 fl (80.0-96.0); MONO # 0.6 10^3/uL (0.0-0.8); MONO % 8.3 % (0.0-5.0); NEUTROPHILS # 4.9 10^3/uL (1.8-7.7); NEUTROPHILS % 70.4 % (36.0-66.0); PLATELET COUNT, AUTOMATED 145 10^3/uL (150-450); RED BLOOD COUNT 4.72 10^6/uL (4.00-5.40)
[2018-12-07] MEDS ORDERED: ENOXAPARIN 80 MG/0.8 ML SYRINGE (J1650) SC ONE (09:30)
--- NOTE | 2018-12-07 09:35 | REP ---
Chest one-view HISTORY: Cough Comparison: 06/02/2017 The lungs are clear. The heart is normal in size. The pulmonary vasculature is normal in appearance. Impression: No acute disease. Electronically Signed by Ryan Carrion MD 12/07/2018 09:27 A
[2018-12-07 09:44] LABS: INR 1.13; PROTHROMBIN TIME 14.7 SECONDS (12.1-14.4)
[2018-12-07 09:45] LABS: PARTIAL THROMBOPLASTIN TIME 30.6 SECONDS (25.4-37.6)
[2018-12-07 09:46] LABS: BLOOD UREA NITROGEN 10 MG/DL (7-18); CALCIUM LEVEL 8.3 MG/DL (8.8-10.2); CARBON DIOXIDE LEVEL 23 MEQ/L (21-32); CHLORIDE LEVEL 105 MEQ/L (98-107); CK-MB VALUE MASS < 1.0 NG/ML (<3.6); CPK CREATINE PHOSPHOKINASE 45 U/L (26-192); CREATININE FOR GFR 0.86 MG/DL (0.55-1.30); GLOMERULAR FILTRATION RATE > 60.0 (>39); GLUCOSE, FASTING 203 MG/DL (70-100); MB/CK RELATIVE INDEX 2.22 (< OR =4); NT-PRO BNP 414 PG/ML (<450); POTASSIUM SERUM 3.9 MEQ/L (3.5-5.1); SODIUM LEVEL 139 MEQ/L (136-145); TROPONIN I < 0.02 NG/ML (< 0.10)
[2018-12-07 12:05] LABS: MB/CK RELATIVE INDEX 2.29 (< OR =4); TROPONIN I 0.19 NG/ML (< 0.10)
[2018-12-07] MEDS ORDERED: ELIQ5TAB PO ×3 (12:33→13:18)
[2018-12-07 12:59] VITALS: BP 132/61
[2018-12-07] MEDS ORDERED: ACETAMINOPHEN 500 MG TAB PO ONE (13:15)
--- NOTE | 2018-12-07 13:34 | ECGEPIP ---
Stationary ECG Study [facility] - ED Test Date: 2018-12-07 Pat Name: DAGOBERTO THURMAN Department: Room: - Gender: F Vp Integrity: jon : 1940 Requested By: Pepe Gibson Order Number: [id number] Reading MD: Zenobia Gillis Measurements Intervals [place] Rate: 146 P: MD: 0 QRS: -16 QRSD: 106 T: 76 QT: 317 QTc: 495 Interpretive Statements ATRIAL FIBRILLATION WITH RAPID VENTRICULAR RESPONSE NONSPECIFIC ST & T-WAVE ABNORMALITY ABNORMAL RHYTHM ECG 01/04/15 NSR Electronically Signed On 12-07-2018 13:34:40 EDT by Zenobia Gillis
--- NOTE | 2018-12-07 13:39 | ECGEPIP ---
Stationary ECG Study [facility] - ED Test Date: 2018-12-07 Pat Name: DAGOBERTO THURMAN Department: Room: - Gender: F Cad Librarian: GARY : 1940 Requested By: Pepe Gibson Order Number: [id number] Reading MD: Zenobia Gillis Measurements Intervals [place] Rate: 73 P: 32 AL: 133 QRS: 1 QRSD: 100 T: 54 QT: 401 QTc: 445 Interpretive Statements SINUS RHYTHM MODERATE ST DEPRESSION 12/07/18 ATRIAL FIBRILLATION Electronically Signed On 12-07-2018 13:38:35 EDT by Zenobia Gillis
== END 2018-12-07 13:40 | disposition home or self-care (01) ==
LOC: EDBD 08:26 → M ED 08:26
DX: I48.91 Unspecified atrial fibrillation (principal); T50.995A Adverse effect of other drugs, medicaments and biological substances, initial encounter; T44.4X5A Adverse effect of predominantly alpha-adrenoreceptor agonists, initial encounter; R94.31 Abnormal electrocardiogram [ECG] [EKG]; Y92.9 Unspecified place or not applicable; Y93.9 Activity, unspecified; R06.02 Shortness of breath; E11.9 Type 2 diabetes mellitus without complications; I10 Essential (primary) hypertension; E78.5 Hyperlipidemia, unspecified; K21.9 Gastro-esophageal reflux disease without esophagitis; M79.7 Fibromyalgia; G25.81 Restless legs syndrome; J45.909 Unspecified asthma, uncomplicated; Z98.61 Coronary angioplasty status; Z79.4 Long term (current) use of insulin; Z79.01 Long term (current) use of anticoagulants; Z79.899 Other long term (current) drug therapy; Z91.89 Other specified personal risk factors, not elsewhere classified; Z88.8 Allergy status to other drugs, medicaments and biological substances; Z88.1 Allergy status to other antibiotic agents
CPT/HCPCS: 71045; 80048; 82550; 82553; 83880; 84484; 85025; 85610; 85730; 93005; 93041; 94760; 96374; 99285; J1160; J1650

== ENCOUNTER → 2019-01-13 | Outpatient (REF) | payer MEDICARE, OTHER ==
[~2019-01-13] MED LIST changes: +ACET-683 PO; +ASPI81TA85 PO; +CYMB1CAP5 PO; +ELIQ5TAB PO; +TOUJ1.2I SC; +TRUL10IN SC
== END ==
LOC: M LAB REF 15:27
PROVIDERS: ATTEND Internal Medicine
DX: R06.02 Shortness of breath (principal); G89.29 Other chronic pain

== ENCOUNTER → 2019-02-22 | Outpatient (REF) | payer MEDICARE, OTHER ==
[~2019-02-22] MED LIST changes: +CYAN500T8 PO; -OMEP20CA3 PO; +OMEP20CA4 PO; -VITA500T3 PO
[2019-02-22 13:38] LABS: PERCENT SATURATION 11.4 % (13.2-45.0)
== END ==
LOC: M LAB REF 12:41
PROVIDERS: ATTEND Internal Medicine
DX: D64.9 Anemia, unspecified (principal)

== ENCOUNTER → 2019-09-15 | Outpatient (CLI) | payer MEDICARE, BC, OTHER ==
[~2019-09-15] MED LIST changes: -ARTI99.0 OU; -GLIM2TAB PO; +GLIM2TAB4 PO; -MECL-68 PO; +MECL1TAB31 PO; -MONT10TA2 PO; +MONT10TA4 PO; +OMEP1CAP73 PO; -OMEP20CA4 PO; -OMEP40CA2 PO; +OMEP40CA97 PO; +POLYOPD OU
--- NOTE | 2019-09-15 10:41 | REP ---
CT STUDY LEFT SHOULDER WITHOUT CONTRAST: HISTORY: Left shoulder rotator cuff tear. Comparison left shoulder CT study is from February 26, 2010. No comparison radiographs. TECHNIQUE: Helical scanning is acquired and 3 mm axial images are reformatted. Oblique coronal and oblique sagittal images are reformatted as well. CT FINDINGS: There is evidence of progressive osteoarthritis at the acromioclavicular and manubrio-clavicular articulations. There is chondrocalcinosis and periarticular soft tissue dystrophic calcification is seen at these two articulations. There is some chondrocalcinosis in the glenohumeral articulation. At the manubrio-clavicular articulation there is more soft tissue fullness and a small quantity of fluid but the findings are otherwise unchanged from the February 2010 study. At the acromioclavicular joint there is progressive osteoarthritis with subcortical cyst formation bony hypertrophy, chondrocalcinosis, and probably some joint fluid. The AC joint remains normally aligned. There is dystrophic calcification in the soft tissues along the course of the rotator cuff. The subacromial space is not narrowed. There is a low-density subacromial subdeltoid bursal effusion of moderate size. A portion of this fluid collection is seen bulging into the axillary soft tissues anteromedial to the inferior portion of the glenohumeral articulation. This fluid collection is a new finding compared with the 2009 prior study. 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 Chondrocalcinosis and some periarticular dystrophic calcifications are seen. Calcifications are noted along the course of the coracoclavicular ligament. There is a moderate to large subacromial subdeltoid bursal effusion. The subacromial space is not visibly narrowed. Electronically Signed by Marcelino New MD 09/15/2019 05:05 P
== END ==
LOC: M RAD 08:28
PROVIDERS: ATTEND Orthopaedic Surgery Sports Medicine
DX: M75.122 Complete rotator cuff tear or rupture of left shoulder, not specified as traumatic (principal)

== ENCOUNTER → 2019-09-16 | Outpatient (CLI) | payer MEDICARE, BC, OTHER ==
--- NOTE | 2019-09-18 08:16 | REP ---
MRI LEFT SHOULDER WITHOUT CONTRAST: HISTORY: Rule out rotator cuff tear. Pain and limited range of motion left shoulder. TECHNIQUE: Axial, oblique coronal and oblique sagittal imaging planes utilized. T1-and T2-weighted scans were included with and without fat saturation. Comparison CT study left shoulder from September 15, 2019. MRI FINDINGS: The glenohumeral and acromioclavicular joints are normally aligned. There is moderate osteoarthritic hypertrophy and cystic change with some joint fluid at the acromioclavicular joint. There is a small glenohumeral joint effusion. There is a periarticular cyst at the anterior aspect of the glenohumeral articulation extending towards the axilla. This was seen on CT. It appears a little larger on MRI measuring 3.3 x 2.8 x 1.9 cm. There is evidence of a complete retracted supraspinatus cuff tear with heterogeneous attenuated granulation tissue at the superior aspect of the humeral head extending towards the supraspinatus attachment. The infraspinatus tendon is thickened but appears intact. The subscapularis tendon has an intact appearance. The biceps tendon is in the bony bicipital groove. No yumiko anterior or posterior labral cartilage tear is seen. No visible loose body. IMPRESSION: Glenohumeral and subacromial bursal effusions. Periarticular cyst anterior to the glenohumeral joint. AC joint osteoarthropathy with cyst formation. A large retracted full-thickness supraspinatus tear. Tendinosis in the infraspinatus and subscapularis tendons. Electronically Signed by Marcelino New MD 09/18/2019 08:55 A
== END ==
LOC: M RAD 09:38
PROVIDERS: ATTEND Orthopaedic Surgery Sports Medicine
DX: M75.122 Complete rotator cuff tear or rupture of left shoulder, not specified as traumatic (principal)

== ENCOUNTER → 2021-04-18 | Outpatient (CLI) | payer MEDICARE, BC, OTHER ==
[~2021-04-18] MED LIST changes: -ASPI81TA85 PO; +ASPI81TA86 PO; +CYAN500T14 PO; -CYAN500T8 PO; -KLOR10TA76 PO; -LISI-1046 PO; -LISI-542 PO; +LISI-898 PO; -LISI2.5T76 GT; +LISI2.5T8 GT; +LISI2.5T9 PO; +MONT10TA10 PO; -MONT10TA4 PO; +OMEP40CA4 PO; -OMEP40CA97 PO; +POTA-136 PO
--- NOTE | 2021-04-18 12:05 | REP ---
INDICATION: OA, SURG PLANNING LT RSTA COMP TO CT 1.5 YRS AGO. COMPARISON: 09/15/2019 TECHNIQUE: 3 x [address] scanning through the left shoulder with sagittal and coronal reconstructions. FINDINGS: Once again, there is evidence of AC joint DJD with asymmetric narrowing, osteophytosis, and calcific deposition all having a stable appearance. Once again, scattered calcifications are seen in the region of the supraspinatus tendon status quo. Once again, there is evidence of glenoid marginal osteophytosis. Once again, there is sternoclavicular DJD status quo. Once again, there are bursal fluid collections which are unchanged. Once again, calcifications are seen along the course of the subscapularis, infraspinatus, and supraspinatus tendons status quo. Calcifications are also seen in the region of the biceps tendon which is likely within the bicipital groove. This is unchanged as well. There is no evidence of an acute fracture, dislocation, or subluxation. IMPRESSION: Chronic changes as described above. There does not appear to be a significant change when compared the prior exam. <Electronically signed by Isaiah Torres > 04/18/21 [id number]
== END ==
LOC: M RAD 11:21
PROVIDERS: ATTEND Orthopaedic Surgery Sports Medicine
DX: M19.012 Primary osteoarthritis, left shoulder (principal)

== ENCOUNTER → 2021-09-15 | Outpatient (REF) | payer MEDICARE, BC, OTHER ==
[~2021-09-15] MED LIST changes: -LISI-898 PO; +LISI5TAB11 PO; -MONT10TA10 PO; +MONT10TA97 PO
[2021-09-15 18:12] LABS: INR 1.45; PROTHROMBIN TIME 18.1 SECONDS (12.7-14.5)
== END ==
LOC: M LAB REF 16:07
PROVIDERS: ATTEND Internal Medicine
DX: I50.32 Chronic diastolic (congestive) heart failure (principal); I95.1 Orthostatic hypotension

== ENCOUNTER 2021-09-18 14:21 | Inpatient (IN) | payer MEDICARE, BC, OTHER ==
[~2021-09-18] VITALS: Ht 157.5 cm; Wt 84.4 kg
[2021-09-18] MEDS ORDERED: SPIR50TA4 (14:29)
[2021-09-18] MEDS ORDERED: FURO40TA2 PO (14:29)
[2021-09-18] MEDS ORDERED: MIDO10TA PO (14:29)
[2021-09-18 15:12] LABS: BASO % 0.5 % (0.0-1.0); EOS % 0.5 % (0.0-3.0); HEMATOCRIT 24.3 % (36.0-47.0); LYMPH # 0.8 10^3/uL (1.5-5.0); LYMPH % 19.5 % (24.0-44.0); MEAN CORPUSCULAR HEMOGLOBIN 19.1 pg (27.0-33.0); MEAN CORPUSCULAR HGB CONC 26.7 g/dl (32.0-36.5); MEAN CORPUSCULAR VOLUME 71.5 fl (80.0-96.0); MONO # 0.4 10^3/uL (0.0-0.8); MONO % 9.2 % (2.0-8.0); NEUTROPHILS # 2.9 10^3/uL (1.5-8.5); NEUTROPHILS % 70.1 % (36.0-66.0); PLATELET COUNT, AUTOMATED 143 10^3/uL (150-450); WHITE BLOOD COUNT 4.2 10^3/uL (4.0-10.0)
[2021-09-18 15:16] LABS: HEMOGLOBIN 6.5 g/dl (12.0-15.5)
[2021-09-18 15:23] LABS: INR 1.49; PROTHROMBIN TIME 18.4 SECONDS (12.7-14.5)
[2021-09-18 15:24] LABS: PARTIAL THROMBOPLASTIN TIME 31.7 SECONDS (25.9-37.0)
[2021-09-18 15:49] LABS: ALBUMIN 3.3 GM/DL (3.2-5.2); ALT/SGPT 13 U/L (12-78); BILIRUBIN,DIRECT 0.2 MG/DL (0.0-0.2); BILIRUBIN,TOTAL 0.7 MG/DL (0.2-1.0); BLOOD UREA NITROGEN 15 MG/DL (7-18); CALCIUM LEVEL 8.3 MG/DL (8.8-10.2); CARBON DIOXIDE LEVEL 23 MEQ/L (21-32); CHLORIDE LEVEL 108 MEQ/L (98-107); CREATININE FOR GFR 1.16 MG/DL (0.55-1.30); GLOMERULAR FILTRATION RATE 47.7 (>32); GLUCOSE, FASTING 160 MG/DL (70-100); NT-PRO BNP 2251 PG/ML (<450); POTASSIUM SERUM 3.4 MEQ/L (3.5-5.1); SODIUM LEVEL 140 MEQ/L (136-145); THYROXINE (T4) 8.8 UG/DL (4.5-12.0); TOTAL PROTEIN 6.2 GM/DL (6.4-8.2)
[2021-09-18 16:25] LABS: RSV AMPLIFICATION NEGATIVE (NEGATIVE)
[2021-09-18] MEDS ORDERED: FUROSEMIDE 40MG/4ML VIAL (J1940) IV ONE (16:25)
[2021-09-18] MEDS ORDERED: POTASSIUM CHLORIDE 10MEQ SR TABLET PO ONE (16:45)
[2021-09-18] MEDS ORDERED: GLUCOSE 4GM CHEW TABLET PO PRN (18:10)
[2021-09-18] MEDS ORDERED: DEXTROSE 50% 50 ML SYRINGE IV PRN (18:10)
[2021-09-18] MEDS ORDERED: GLUCAGON INJ 1MG VIAL SC PRN (18:10)
[2021-09-18] MEDS ORDERED: SPIR-10 PO (18:11)
[2021-09-18] MEDS ORDERED: DULA3PEN SQ (18:11)
[2021-09-18] MEDS ORDERED: ROPI0.5T3 PO (18:11)
[2021-09-18] MEDS ORDERED: PREG100CA PO (18:11)
[2021-09-18] MEDS ORDERED: DULO30CA9 PO (18:11)
[2021-09-18] MEDS ORDERED: FLEC50HA PO (18:11)
[2021-09-18] MEDS ORDERED: FARX1TAB3 PO (18:11)
[2021-09-18] MEDS ORDERED: ELIQ5TAB PO (18:14)
[2021-09-18] MEDS ORDERED: HOME MED LIST COMPLETE! XX SCH (18:20)
[2021-09-18 18:55] LABS: HEPATITIS B SURFACE ANTIGEN NEGATIVE (NEGATIVE)
[2021-09-18 19:22] LABS: HEPATITIS C VIRUS ABY INDEX 0.1 INDEX (<0.8)
[2021-09-18 19:23] VITALS: BP 120/55
[2021-09-18 19:23] LABS: HEPATITIS B CORE ANTIBODY IGM NEGATIVE (NEGATIVE)
[2021-09-18 19:40] VITALS: BP 112/54
[2021-09-18] MEDS: HumaLOG INSULIN (NovoLOG) PER UNIT SC SCH (21:00)
[2021-09-18] MEDS: APIXABAN 5 MG TAB (ELIQUIS) PO SCH (21:00)
[2021-09-18 21:10] VITALS: BP 120/60
[2021-09-18 23:40] VITALS: BP 148/63
[2021-09-18 23:55] VITALS: BP 149/72
[2021-09-19 01:45] VITALS: BP 146/67
[2021-09-19] MEDS: HumaLOG INSULIN (NovoLOG) PER UNIT SC SCH ×4 (08:00→20:43)
[2021-09-19] MEDS: OMEPRAZOLE 20MG CAP PO SCH (08:50)
[2021-09-19] MEDS: APIXABAN 5 MG TAB (ELIQUIS) PO SCH ×2 (08:50→20:48)
[2021-09-19] MEDS: DULoxetine 30MG CAPSULE (CYMBALTA) PO SCH (08:50)
[2021-09-19] MEDS: FUROSEMIDE 100MG/10ML VIAL (J1940) IV SCH ×2 (08:51→16:54)
[2021-09-19 08:57] VITALS: BP 129/68
[2021-09-19] MEDS: DOCUSATE SODIUM 100MG CAPSULE PO SCH ×2 (09:00→20:41)
[2021-09-19] MEDS ORDERED: POTASSIUM CHLORIDE 10MEQ SR TABLET PO SCH (09:00)
[2021-09-19] MEDS ORDERED: LEVEMIR (INSULIN DETEMIR) 1 UNITS/0.01ML SC SCH ×2 (09:00)
[2021-09-19] MEDS: FLECAINIDE 50MG TABLET PO SCH ×2 (09:36→20:49)
[2021-09-19] MEDS: MIDODRINE 5 MG TAB PO SCH ×3 (09:37→20:49)
[2021-09-19 09:59] LABS: HEMATOCRIT 28.9 % (36.0-47.0); HEMOGLOBIN 8.4 g/dl (12.0-15.5); MEAN CORPUSCULAR HEMOGLOBIN 21.2 pg (27.0-33.0); MEAN CORPUSCULAR HGB CONC 29.1 g/dl (32.0-36.5); MEAN CORPUSCULAR VOLUME 72.8 fl (80.0-96.0); PLATELET COUNT, AUTOMATED 126 10^3/uL (150-450); RED BLOOD COUNT 3.97 10^6/uL (4.00-5.40); WHITE BLOOD COUNT 4.7 10^3/uL (4.0-10.0)
[2021-09-19 10:34] LABS: ALBUMIN 3.3 GM/DL (3.2-5.2); BILIRUBIN,TOTAL 1.4 MG/DL (0.2-1.0); CALCIUM LEVEL 8.3 MG/DL (8.8-10.2); CREATININE FOR GFR 1.04 MG/DL (0.55-1.30); GLOMERULAR FILTRATION RATE 54.1 (>32); PERCENT SATURATION 12.3 % (13.2-45.0); POTASSIUM SERUM 3.4 MEQ/L (3.5-5.1); TOTAL PROTEIN 6.4 GM/DL (6.4-8.2)
[2021-09-19] MEDS ORDERED: POTASSIUM CHLORIDE 10MEQ SR TABLET PO ONE (10:55)
[2021-09-19 11:25] VITALS: BP 129/68
[2021-09-19 14:30] VITALS: BP 118/56
[2021-09-19 14:40] VITALS: BP 120/48
[2021-09-19] MEDS: FERROUS SULFATE 325MG TAB PO SCH ×2 (15:34→20:49)
[2021-09-19] MEDS: SENNA 8.6 MG TAB (SENOKOT) PO SCH (20:42)
[2021-09-19] MEDS: rOPINIRole 0.25 MG TAB(REQUIP) PO SCH (20:49)
[2021-09-19] MEDS: ATORVASTATIN 10 MG TAB PO SCH (20:49)
[2021-09-19] MEDS: MONTELUKAST 10 MG TAB PO SCH (20:49)
[2021-09-19] MEDS: PREGABALIN 100 MG CAP (LYRICA) PO SCH (20:49)
[2021-09-19 21:00] VITALS: BP 101/47
[2021-09-19] MEDS ORDERED: RAMELTEON 8 MG TAB (ROZEREM) PO PRN (21:20)
[2021-09-20 02:00] VITALS: BP 99/46
[2021-09-20] MEDS: FUROSEMIDE 100MG/10ML VIAL (J1940) IV SCH ×3 (02:00→16:50)
[2021-09-20 06:00] VITALS: BP 118/46
[2021-09-20 06:01] LABS: HEMOGLOBIN 7.7 g/dl (12.0-15.5); MEAN CORPUSCULAR HEMOGLOBIN 21.4 pg (27.0-33.0); MEAN CORPUSCULAR HGB CONC 29.6 g/dl (32.0-36.5); MEAN CORPUSCULAR VOLUME 72.2 fl (80.0-96.0); PLATELET COUNT, AUTOMATED 116 10^3/uL (150-450); WHITE BLOOD COUNT 3.7 10^3/uL (4.0-10.0)
[2021-09-20 06:27] LABS: ALT/SGPT 14 U/L (12-78); BILIRUBIN,TOTAL 0.7 MG/DL (0.2-1.0); BLOOD UREA NITROGEN 14 MG/DL (7-18); CALCIUM LEVEL 8.1 MG/DL (8.8-10.2); CARBON DIOXIDE LEVEL 29 MEQ/L (21-32); CHLORIDE LEVEL 112 MEQ/L (98-107); CREATININE FOR GFR 0.82 MG/DL (0.55-1.30); GLOMERULAR FILTRATION RATE > 60.0 (>32); GLUCOSE, FASTING 58 MG/DL (70-100); POTASSIUM SERUM 3.2 MEQ/L (3.5-5.1); SODIUM LEVEL 145 MEQ/L (136-145); TOTAL PROTEIN 5.7 GM/DL (6.4-8.2)
[2021-09-20] MEDS: HumaLOG INSULIN (NovoLOG) PER UNIT SC SCH (07:30)
[2021-09-20] MEDS: DOCUSATE SODIUM 100MG CAPSULE PO SCH ×2 (09:00→20:51)
[2021-09-20 09:13] VITALS: BP 107/60
[2021-09-20] MEDS: DULoxetine 30MG CAPSULE (CYMBALTA) PO SCH (09:21)
[2021-09-20] MEDS: POTASSIUM CHLORIDE 10MEQ SR TABLET PO SCH (09:21)
[2021-09-20] MEDS: FERROUS SULFATE 325MG TAB PO SCH ×2 (09:21→20:58)
[2021-09-20] MEDS: MIDODRINE 5 MG TAB PO SCH ×2 (09:21→16:50)
[2021-09-20] MEDS: OMEPRAZOLE 20MG CAP PO SCH (09:22)
[2021-09-20] MEDS: FLECAINIDE 50MG TABLET PO SCH ×2 (09:23→20:59)
[2021-09-20] MEDS ORDERED: POTASSIUM CHLORIDE 10MEQ SR TABLET PO ONE (11:00)
[2021-09-20 14:30] VITALS: BP 118/56
[2021-09-20] MEDS: SENNA 8.6 MG TAB (SENOKOT) PO SCH (20:52)
[2021-09-20] MEDS: MONTELUKAST 10 MG TAB PO SCH (20:59)
[2021-09-20] MEDS: PREGABALIN 100 MG CAP (LYRICA) PO SCH (20:59)
[2021-09-20] MEDS: rOPINIRole 0.25 MG TAB(REQUIP) PO SCH (20:59)
[2021-09-20] MEDS: ATORVASTATIN 10 MG TAB PO SCH (20:59)
[2021-09-20 22:00] VITALS: BP 119/54
[2021-09-21] VITALS (9 sets, daily range): BP systolic 90–141; BP diastolic 44–67
[2021-09-21] MEDS: FUROSEMIDE 100MG/10ML VIAL (J1940) IV SCH ×3 (01:09→17:00)
[2021-09-21] MEDS ORDERED: NYSTATIN 100,000 UNITS/GM TOPICAL PWD 15 GM TOP PRN (01:20)
[2021-09-21] MEDS ORDERED: DIGOXIN INJ 0.5 MG/2 ML AMP (J1160) IV STA ×2 (06:25→07:57)
[2021-09-21] MEDS ORDERED: METOPROLOL TART 50 MG TAB PO ONE (06:25)
[2021-09-21 06:36] LABS: HEMATOCRIT 27.2 % (36.0-47.0); HEMOGLOBIN 7.9 g/dl (12.0-15.5); MEAN CORPUSCULAR HEMOGLOBIN 21.2 pg (27.0-33.0); MEAN CORPUSCULAR VOLUME 73.1 fl (80.0-96.0); PLATELET COUNT, AUTOMATED 112 10^3/uL (150-450); RED BLOOD COUNT 3.72 10^6/uL (4.00-5.40); WHITE BLOOD COUNT 3.9 10^3/uL (4.0-10.0)
[2021-09-21] MEDS: METOPROLOL 5 MG/5 ML VIAL IV SCH ×3 (06:50→07:11)
[2021-09-21 06:52] LABS: ALBUMIN 3.1 GM/DL (3.2-5.2); BILIRUBIN,TOTAL 0.8 MG/DL (0.2-1.0); CALCIUM LEVEL 8.2 MG/DL (8.8-10.2); CREATININE FOR GFR 1.15 MG/DL (0.55-1.30); GLOMERULAR FILTRATION RATE 48.2 (>32); POTASSIUM SERUM 3.7 MEQ/L (3.5-5.1)
[2021-09-21 06:53] LABS: CK-MB VALUE MASS < 1.0 NG/ML (<3.6); CPK CREATINE PHOSPHOKINASE 42 U/L (26-192); MB/CK RELATIVE INDEX 2.38 (< OR =4)
[2021-09-21] MEDS ORDERED: METOCLOPRAMIDE INJ 10MG/2ML VIAL (J2765 PER 1) IV ONE (07:00)
[2021-09-21] MEDS ORDERED: ASPIRIN 81MG ENTERIC TABLET PO ONE (07:00)
[2021-09-21] MEDS ORDERED: MORPHINE 4 MG/ML 1ML VIAL/SYRINGE (J2270) IV ONE (07:00)
[2021-09-21] MEDS: FERROUS SULFATE 325MG TAB PO SCH ×2 (08:32→20:02)
[2021-09-21] MEDS: DULoxetine 30MG CAPSULE (CYMBALTA) PO SCH (08:32)
[2021-09-21] MEDS: MIDODRINE 5 MG TAB PO SCH ×3 (08:33→17:00)
[2021-09-21] MEDS: POTASSIUM CHLORIDE 10MEQ SR TABLET PO SCH (08:33)
[2021-09-21] MEDS: DOCUSATE SODIUM 100MG CAPSULE PO SCH ×2 (08:33→20:02)
[2021-09-21] MEDS: OMEPRAZOLE 20MG CAP PO SCH (08:33)
[2021-09-21] MEDS: AMIODARONE 200 MG TAB (PACERONE) PO SCH ×4 (08:33→20:03)
[2021-09-21 09:53] LABS: INR 1.29; PROTHROMBIN TIME 16.5 SECONDS (12.7-14.5)
[2021-09-21 09:54] LABS: PARTIAL THROMBOPLASTIN TIME 29.7 SECONDS (25.9-37.0)
[2021-09-21] MEDS ORDERED: metOLazone 2.5 MG TAB PO ONE (12:10)
[2021-09-21] MEDS: PREGABALIN 100 MG CAP (LYRICA) PO SCH (20:02)
[2021-09-21] MEDS: SENNA 8.6 MG TAB (SENOKOT) PO SCH (20:02)
[2021-09-21] MEDS: MONTELUKAST 10 MG TAB PO SCH (20:02)
[2021-09-21] MEDS: ATORVASTATIN 10 MG TAB PO SCH (20:02)
[2021-09-21] MEDS: rOPINIRole 0.25 MG TAB(REQUIP) PO SCH (20:10)
[2021-09-22] VITALS (7 sets, daily range): BP systolic 102–143; BP diastolic 53–64
[2021-09-22] MEDS: FUROSEMIDE 100MG/10ML VIAL (J1940) IV SCH ×3 (00:15→17:05)
[2021-09-22 05:41] LABS: HEMATOCRIT 31.1 % (36.0-47.0); HEMOGLOBIN 8.9 g/dl (12.0-15.5); MEAN CORPUSCULAR HEMOGLOBIN 21.4 pg (27.0-33.0); MEAN CORPUSCULAR HGB CONC 28.6 g/dl (32.0-36.5); MEAN CORPUSCULAR VOLUME 74.8 fl (80.0-96.0); PLATELET COUNT, AUTOMATED 118 10^3/uL (150-450); RED BLOOD COUNT 4.16 10^6/uL (4.00-5.40)
[2021-09-22 06:15] LABS: ALBUMIN 3.2 GM/DL (3.2-5.2); BILIRUBIN,TOTAL 0.8 MG/DL (0.2-1.0); CALCIUM LEVEL 8.6 MG/DL (8.8-10.2); CREATININE FOR GFR 1.27 MG/DL (0.55-1.30); POTASSIUM SERUM 3.7 MEQ/L (3.5-5.1); TOTAL PROTEIN 6.4 GM/DL (6.4-8.2)
[2021-09-22] MEDS ORDERED: PILL CUTTER 1 EACH XX PRN (06:30)
[2021-09-22] MEDS ORDERED: metOLazone 2.5 MG TAB PO ONE (07:00)
[2021-09-22] MEDS: HumaLOG INSULIN (NovoLOG) PER UNIT SC SCH ×3 (08:38→17:06)
[2021-09-22] MEDS: MIDODRINE 5 MG TAB PO SCH ×3 (08:38→17:05)
[2021-09-22] MEDS: OMEPRAZOLE 20MG CAP PO SCH (09:37)
[2021-09-22] MEDS: AMIODARONE 200 MG TAB (PACERONE) PO SCH ×4 (09:37→20:14)
[2021-09-22] MEDS: DULoxetine 30MG CAPSULE (CYMBALTA) PO SCH (09:37)
[2021-09-22] MEDS: POTASSIUM CHLORIDE 10MEQ SR TABLET PO SCH (09:37)
[2021-09-22] MEDS: DOCUSATE SODIUM 100MG CAPSULE PO SCH ×2 (09:37→20:13)
[2021-09-22] MEDS: SPIRONOLACTONE 12.5MG PER 1/2 TABLET PO SCH (09:37)
[2021-09-22] MEDS: FERROUS SULFATE 325MG TAB PO SCH ×2 (09:41→20:13)
[2021-09-22] MEDS: DIGOXIN 0.125 MG TAB PO SCH (09:41)
[2021-09-22] MEDS: ATORVASTATIN 10 MG TAB PO SCH (20:13)
[2021-09-22] MEDS: rOPINIRole 0.25 MG TAB(REQUIP) PO SCH (20:13)
[2021-09-22] MEDS: PREGABALIN 100 MG CAP (LYRICA) PO SCH (20:13)
[2021-09-22] MEDS: SENNA 8.6 MG TAB (SENOKOT) PO SCH (20:13)
[2021-09-22] MEDS: MONTELUKAST 10 MG TAB PO SCH (20:14)
[2021-09-23] VITALS (9 sets, daily range): BP systolic 91–130; BP diastolic 50–64
[2021-09-23] MEDS: FUROSEMIDE 100MG/10ML VIAL (J1940) IV SCH ×3 (00:09→17:28)
[2021-09-23] MEDS: METOPROLOL 5 MG/5 ML VIAL IV SCH ×3 (00:32→00:48)
[2021-09-23] MEDS ORDERED: METOCLOPRAMIDE INJ 10MG/2ML VIAL (J2765 PER 1) IV ONE (03:15)
[2021-09-23 05:40] LABS: HEMATOCRIT 31.2 % (36.0-47.0); HEMOGLOBIN 9.2 g/dl (12.0-15.5); MEAN CORPUSCULAR HEMOGLOBIN 21.6 pg (27.0-33.0); MEAN CORPUSCULAR HGB CONC 29.5 g/dl (32.0-36.5); MEAN CORPUSCULAR VOLUME 73.4 fl (80.0-96.0); PLATELET COUNT, AUTOMATED 117 10^3/uL (150-450); RED BLOOD COUNT 4.25 10^6/uL (4.00-5.40); WHITE BLOOD COUNT 4.4 10^3/uL (4.0-10.0)
[2021-09-23 06:11] LABS: ALBUMIN 3.3 GM/DL (3.2-5.2); CALCIUM LEVEL 8.5 MG/DL (8.8-10.2); CREATININE FOR GFR 1.28 MG/DL (0.55-1.30); GLOMERULAR FILTRATION RATE 42.6 (>32); TOTAL PROTEIN 6.4 GM/DL (6.4-8.2)
[2021-09-23] MEDS ORDERED: LEVEMIR (INSULIN DETEMIR) 1 UNITS/0.01ML SC SCH (09:00)
[2021-09-23] MEDS: HumaLOG INSULIN (NovoLOG) PER UNIT SC SCH ×3 (09:03→17:29)
[2021-09-23] MEDS: DULoxetine 30MG CAPSULE (CYMBALTA) PO SCH (09:03)
[2021-09-23] MEDS: LEVEMIR (INSULIN DETEMIR) 1 UNITS/0.01ML SC SCH (09:03)
[2021-09-23] MEDS: OMEPRAZOLE 20MG CAP PO SCH (09:04)
[2021-09-23] MEDS: SPIRONOLACTONE 12.5MG PER 1/2 TABLET PO SCH (09:04)
[2021-09-23] MEDS: FERROUS SULFATE 325MG TAB PO SCH ×2 (09:04→20:49)
[2021-09-23] MEDS: AMIODARONE 200 MG TAB (PACERONE) PO SCH ×4 (09:04→20:50)
[2021-09-23] MEDS: DOCUSATE SODIUM 100MG CAPSULE PO SCH ×2 (09:04→20:48)
[2021-09-23] MEDS: MIDODRINE 5 MG TAB PO SCH ×4 (09:04→17:29)
[2021-09-23] MEDS: POTASSIUM CHLORIDE 10MEQ SR TABLET PO SCH (09:05)
[2021-09-23] MEDS: DIGOXIN 0.125 MG TAB PO SCH (09:10)
[2021-09-23] MEDS ORDERED: metOLazone 2.5 MG TAB PO ONE (09:15)
[2021-09-23] MEDS ORDERED: POTASSIUM CHLORIDE 10MEQ SR TABLET PO ONE ×3 (09:25→20:10)
[2021-09-23 16:13] LABS: HEMATOCRIT 31.5 % (36.0-47.0); HEMOGLOBIN 9.1 g/dl (12.0-15.5)
[2021-09-23] MEDS: ATORVASTATIN 10 MG TAB PO SCH (20:48)
[2021-09-23] MEDS: MONTELUKAST 10 MG TAB PO SCH (20:48)
[2021-09-23] MEDS: rOPINIRole 0.25 MG TAB(REQUIP) PO SCH (20:48)
[2021-09-23] MEDS: SENNA 8.6 MG TAB (SENOKOT) PO SCH (20:48)
[2021-09-23] MEDS: PREGABALIN 100 MG CAP (LYRICA) PO SCH (20:49)
[2021-09-23] MEDS: PANTOPRAZOLE 40MG VIAL (C9113 PER 1) IV SCH (20:50)
[2021-09-24] VITALS: BP 134/62
[2021-09-24 04:00] VITALS: BP 147/68
[2021-09-24 07:11] LABS: HEMOGLOBIN 9.3 g/dl (12.0-15.5); MEAN CORPUSCULAR HEMOGLOBIN 21.7 pg (27.0-33.0); MEAN CORPUSCULAR HGB CONC 29.1 g/dl (32.0-36.5); MEAN CORPUSCULAR VOLUME 74.8 fl (80.0-96.0); PLATELET COUNT, AUTOMATED 119 10^3/uL (150-450); RED BLOOD COUNT 4.28 10^6/uL (4.00-5.40); WHITE BLOOD COUNT 3.7 10^3/uL (4.0-10.0)
[2021-09-24 07:31] LABS: CALCIUM LEVEL 8.6 MG/DL (8.8-10.2); CREATININE FOR GFR 1.31 MG/DL (0.55-1.30); GLOMERULAR FILTRATION RATE 41.5 (>32); POTASSIUM SERUM 3.3 MEQ/L (3.5-5.1)
[2021-09-24 08:00] VITALS: BP 114/56
[2021-09-24] MEDS: DULoxetine 30MG CAPSULE (CYMBALTA) PO SCH (09:07)
[2021-09-24] MEDS: FERROUS SULFATE 325MG TAB PO SCH ×2 (09:07→21:28)
[2021-09-24] MEDS: PANTOPRAZOLE 40MG VIAL (C9113 PER 1) IV SCH ×2 (09:07→21:28)
[2021-09-24] MEDS: SPIRONOLACTONE 12.5MG PER 1/2 TABLET PO SCH (09:07)
[2021-09-24] MEDS: DOCUSATE SODIUM 100MG CAPSULE PO SCH ×2 (09:07→21:28)
[2021-09-24] MEDS: MIDODRINE 5 MG TAB PO SCH ×3 (09:08→16:00)
[2021-09-24] MEDS: POTASSIUM CHLORIDE 10MEQ SR TABLET PO SCH (09:08)
[2021-09-24] MEDS: DIGOXIN 0.125 MG TAB PO SCH (09:09)
[2021-09-24] MEDS: LEVEMIR (INSULIN DETEMIR) 1 UNITS/0.01ML SC SCH (09:11)
[2021-09-24] MEDS: AMIODARONE 200 MG TAB (PACERONE) PO SCH ×4 (09:11→21:28)
[2021-09-24] MEDS: HumaLOG INSULIN (NovoLOG) PER UNIT SC SCH ×3 (09:11→17:42)
[2021-09-24] MEDS ORDERED: POTASSIUM CHLORIDE 10MEQ SR TABLET PO ONE (10:00)
[2021-09-24 12:00] VITALS: BP 161/60
[2021-09-24 15:57] VITALS: BP 141/64
[2021-09-24 20:00] VITALS: BP 128/58
[2021-09-24] MEDS: rOPINIRole 0.25 MG TAB(REQUIP) PO SCH (21:28)
[2021-09-24] MEDS: ATORVASTATIN 10 MG TAB PO SCH (21:28)
[2021-09-24] MEDS: PREGABALIN 100 MG CAP (LYRICA) PO SCH (21:28)
[2021-09-24] MEDS: SENNA 8.6 MG TAB (SENOKOT) PO SCH (21:28)
[2021-09-24] MEDS: MONTELUKAST 10 MG TAB PO SCH (21:28)
[2021-09-25] VITALS: BP 126/58
[2021-09-25 04:00] VITALS: BP 115/55
[2021-09-25 06:33] LABS: HEMATOCRIT 30.6 % (36.0-47.0); HEMOGLOBIN 8.7 g/dl (12.0-15.5); MEAN CORPUSCULAR HEMOGLOBIN 21.5 pg (27.0-33.0); MEAN CORPUSCULAR HGB CONC 28.4 g/dl (32.0-36.5); MEAN CORPUSCULAR VOLUME 75.7 fl (80.0-96.0); PLATELET COUNT, AUTOMATED 110 10^3/uL (150-450); RED BLOOD COUNT 4.04 10^6/uL (4.00-5.40); WHITE BLOOD COUNT 3.6 10^3/uL (4.0-10.0)
[2021-09-25 06:55] LABS: CALCIUM LEVEL 8.5 MG/DL (8.8-10.2); CREATININE FOR GFR 1.23 MG/DL (0.55-1.30); GLOMERULAR FILTRATION RATE 44.6 (>32); POTASSIUM SERUM 3.8 MEQ/L (3.5-5.1)
[2021-09-25] MEDS: SPIRONOLACTONE 12.5MG PER 1/2 TABLET PO SCH (09:21)
[2021-09-25] MEDS: POTASSIUM CHLORIDE 10MEQ SR TABLET PO SCH (09:22)
[2021-09-25] MEDS: AMIODARONE 200 MG TAB (PACERONE) PO SCH ×2 (09:23→13:05)
[2021-09-25] MEDS: DULoxetine 30MG CAPSULE (CYMBALTA) PO SCH (09:23)
[2021-09-25] MEDS: DOCUSATE SODIUM 100MG CAPSULE PO SCH (09:24)
[2021-09-25] MEDS: MIDODRINE 5 MG TAB PO SCH ×2 (09:24→12:00)
[2021-09-25] MEDS: FERROUS SULFATE 325MG TAB PO SCH (09:25)
[2021-09-25] MEDS: DIGOXIN 0.125 MG TAB PO SCH (09:27)
[2021-09-25] MEDS: LEVEMIR (INSULIN DETEMIR) 1 UNITS/0.01ML SC SCH (09:27)
[2021-09-25] MEDS: HumaLOG INSULIN (NovoLOG) PER UNIT SC SCH ×2 (09:28→13:06)
[2021-09-25] MEDS: PANTOPRAZOLE 40MG VIAL (C9113 PER 1) IV SCH (09:28)
[2021-09-25 09:30] VITALS: BP 129/59
[2021-09-25] MEDS ORDERED: AMIO200T49 PO (10:21)
[2021-09-25] MEDS ORDERED: SENN18TA PO (10:21)
[2021-09-25] MEDS ORDERED: DIGO0.123 PO (10:21)
[2021-09-25] MEDS ORDERED: FERR1TAB8 PO (10:21)
[2021-09-25] MEDS ORDERED: SPIR-10 PO (10:21)
[2021-09-25 12:36] VITALS: BP 149/69
== END 2021-09-25 15:00 | disposition home health service (06) | DRG 291 ==
LOC: M ED 14:21 → M ED INP 16:44 → ENRESERV 09-19 13:45 → M MSPAV 09-19 14:42 → M PCU 09-21 06:34
PROVIDERS: ADMIT Internal Medicine; ATTEND Internal Medicine
PROC: 30233N1 Transfusion of Nonautologous Red Blood Cells into Peripheral Vein, Percutaneous Approach (ICD-10-PCS; principal; 2021-09-18)
DX: I11.0 Hypertensive heart disease with heart failure (principal); I50.33 Acute on chronic diastolic (congestive) heart failure; R18.8 Other ascites; D62 Acute posthemorrhagic anemia; E11.649 Type 2 diabetes mellitus with hypoglycemia without coma; E78.5 Hyperlipidemia, unspecified; G25.81 Restless legs syndrome; F41.9 Anxiety disorder, unspecified; K21.9 Gastro-esophageal reflux disease without esophagitis; E03.9 Hypothyroidism, unspecified; I48.0 Paroxysmal atrial fibrillation; F32.A Depression, unspecified; K74.60 Unspecified cirrhosis of liver; I95.1 Orthostatic hypotension; H81.10 Benign paroxysmal vertigo, unspecified ear; E87.6 Hypokalemia; R07.2 Precordial pain; I44.7 Left bundle-branch block, unspecified; Z53.09 Procedure and treatment not carried out because of other contraindication; I35.0 Nonrheumatic aortic (valve) stenosis; E66.9 Obesity, unspecified; E11.42 Type 2 diabetes mellitus with diabetic polyneuropathy; E11.43 Type 2 diabetes mellitus with diabetic autonomic (poly)neuropathy; K76.0 Fatty (change of) liver, not elsewhere classified; D50.9 Iron deficiency anemia, unspecified; Z20.822 Contact with and (suspected) exposure to COVID-19; Z68.35 Body mass index [BMI] 35.0-35.9, adult; Z86.16 Personal history of COVID-19; Z79.01 Long term (current) use of anticoagulants; Z98.42 Cataract extraction status, left eye; Z98.41 Cataract extraction status, right eye; Z79.4 Long term (current) use of insulin; Z79.899 Other long term (current) drug therapy; Z88.8 Allergy status to other drugs, medicaments and biological substances; Z88.1 Allergy status to other antibiotic agents; Z91.048 Other nonmedicinal substance allergy status; Z90.49 Acquired absence of other specified parts of digestive tract

== ENCOUNTER → 2021-10-01 | Outpatient (REF) | payer MEDICARE, BC, OTHER ==
[~2021-10-01] MED LIST changes: +AMIO200T49 PO; +DIGO0.123 PO; +DULA3PEN SQ; +DULO30CA9 PO; +FARX1TAB3 PO; +FERR1TAB8 PO; +FLEC50HA PO; +MIDO10TA PO; +ROPI0.5T3 PO; +SENN18TA PO; +SPIR-10 PO; +SPIR50TA4
[2021-10-01 15:24] LABS: CALCIUM LEVEL 8.6 MG/DL (8.8-10.2); CREATININE FOR GFR 1.14 MG/DL (0.55-1.30); GLOMERULAR FILTRATION RATE 48.7 (>32); MAGNESIUM LEVEL 1.9 MG/DL (1.8-2.4); POTASSIUM SERUM 4.3 MEQ/L (3.5-5.1)
== END ==
LOC: M SHH 14:08
PROVIDERS: ATTEND Internal Medicine
DX: I50.9 Heart failure, unspecified (principal)

== ENCOUNTER → 2021-10-02 | Outpatient (REF) | payer MEDICARE, BC, OTHER ==
[2021-10-02 16:06] LABS: CALCIUM LEVEL 8.7 MG/DL (8.8-10.2); CREATININE FOR GFR 1.06 MG/DL (0.55-1.30); MAGNESIUM LEVEL 1.9 MG/DL (1.8-2.4); POTASSIUM SERUM 4.7 MEQ/L (3.5-5.1)
== END ==
LOC: M SHH 15:08
PROVIDERS: ATTEND Internal Medicine
DX: I50.9 Heart failure, unspecified (principal)

== ENCOUNTER → 2021-10-03 | Outpatient (REF) | payer MEDICARE, BC, OTHER ==
[2021-10-03 17:08] LABS: CALCIUM LEVEL 8.2 MG/DL (8.8-10.2); CREATININE FOR GFR 1.17 MG/DL (0.55-1.30); GLOMERULAR FILTRATION RATE 47.3 (>32); MAGNESIUM LEVEL 1.9 MG/DL (1.8-2.4); POTASSIUM SERUM 4.3 MEQ/L (3.5-5.1)
== END ==
LOC: M SHH 15:07
PROVIDERS: ATTEND Internal Medicine
DX: R06.02 Shortness of breath (principal); I50.32 Chronic diastolic (congestive) heart failure

== ENCOUNTER → 2021-10-06 | Outpatient (REF) | payer MEDICARE, BC, OTHER | LOC: M LAB REF 09:51 | PROVIDERS: ATTEND Internal Medicine | DX: K74.60 Unspecified cirrhosis of liver (principal) ==

== ENCOUNTER 2022-06-12 06:25 | Inpatient (IN) | payer MEDICARE, BC, OTHER ==
[~2022-06-12] VITALS: Ht 157.5 cm; Wt 75.6 kg
[2022-06-12 07:11] LABS: BASO % 0.2 % (0.0-1.0); EOS % 0.4 % (0.0-3.0); LYMPH # 0.6 10^3/uL (1.5-5.0); LYMPH % 11.9 % (24.0-44.0); MEAN CORPUSCULAR HEMOGLOBIN 19.3 pg (27.0-33.0); MEAN CORPUSCULAR HGB CONC 26.9 g/dl (32.0-36.5); MEAN CORPUSCULAR VOLUME 71.6 fl (80.0-96.0); MONO # 0.3 10^3/uL (0.0-0.8); MONO % 6.6 % (2.0-8.0); NEUTROPHILS # 3.8 10^3/uL (1.5-8.5); NEUTROPHILS % 80.5 % (36.0-66.0); PLATELET COUNT, AUTOMATED 138 10^3/uL (150-450); RED BLOOD COUNT 3.63 10^6/uL (4.00-5.40); WHITE BLOOD COUNT 4.7 10^3/uL (4.0-10.0)
[2022-06-12 07:23] LABS: INR 1.38; PROTHROMBIN TIME 17.2 SECONDS (12.5-14.5)
[2022-06-12 07:24] LABS: PARTIAL THROMBOPLASTIN TIME 32.3 SECONDS (24.8-34.2)
[2022-06-12] MEDS ORDERED: ASPIRIN 81 MG CHEW TABLET PO ONE (07:55)
[2022-06-12 07:59] LABS: BLOOD UREA NITROGEN 20 MG/DL (9-23); CALCIUM LEVEL 8.3 MG/DL (8.3-10.6); CARBON DIOXIDE LEVEL 25 MMOL/L (20-31); CHLORIDE LEVEL 105 MMOL/L (98-107); CK-MB VALUE MASS < 1.0 NG/ML (<3.6); CPK CREATINE PHOSPHOKINASE 40 U/L (34-145); CREATININE FOR GFR 0.91 MG/DL (0.55-1.30); FREE T4 1.05 NG/DL (0.89-1.76); GLOMERULAR FILTRATION RATE > 60.0 (>32); GLUCOSE, FASTING 178 MG/DL (74-106); MAGNESIUM LEVEL 1.7 MG/DL (1.8-2.4); POTASSIUM SERUM 3.6 MMOL/L (3.5-5.1); SODIUM LEVEL 139 MMOL/L (136-145); THYROID STIMULATING HORMONE 2.896 uIU/ML (0.55-4.78)
[2022-06-12 08:15] LABS: ALBUMIN 3.1 G/DL (3.2-5.2); ALT/SGPT 11 U/L (7.0-40); BILIRUBIN,DIRECT 0.2 MG/DL (<0.4); BILIRUBIN,TOTAL 0.5 MG/DL (0.3-1.2); DIGOXIN LEVEL < 0.1 NG/ML (0.8-2.0); LIPASE 28 U/L (12-53)
[2022-06-12 08:52] LABS: CK-MB VALUE MASS < 1.0 NG/ML (<3.6); CPK CREATINE PHOSPHOKINASE 38 U/L (34-145); MB/CK RELATIVE INDEX 2.63 (< OR =4)
[2022-06-12] MEDS ORDERED: ISOVUE-370 76% 100ML VIAL As Ordered ONE (08:53)
[2022-06-12] MEDS: OMEPRAZOLE 20MG CAP PO SCH (09:00)
[2022-06-12 09:29] LABS: INR 1.34; PROTHROMBIN TIME 16.9 SECONDS (12.5-14.5)
[2022-06-12 09:30] LABS: PARTIAL THROMBOPLASTIN TIME 29.6 SECONDS (24.8-34.2)
[2022-06-12] MEDS ORDERED: ELIQ5TAB PO (10:58)
[2022-06-12] MEDS ORDERED: med rec comment (11:05)
[2022-06-12] MEDS ORDERED: POTASSIUM CHLORIDE 10MEQ SR TABLET PO ONE (11:10)
[2022-06-12] MEDS ORDERED: ACET-1349 PO (12:31)
[2022-06-12] MEDS ORDERED: HOME MED LIST COMPLETE! XX SCH (12:35)
[2022-06-12 13:24] VITALS: BP 123/57
[2022-06-12 13:40] VITALS: BP 118/72
[2022-06-12 14:11] VITALS: BP 133/65
[2022-06-12] MEDS ORDERED: ONDANSETRON 4MG 2ML VIAL IV ONE (14:20)
[2022-06-12] MEDS ORDERED: GLUCOSE 4GM CHEW TABLET PO PRN (14:25)
[2022-06-12] MEDS ORDERED: GLUCAGON INJ 1MG VIAL SC PRN (14:25)
[2022-06-12] MEDS ORDERED: DEXTROSE 50% 50 ML SYRINGE IV PRN (14:25)
[2022-06-12 14:30] VITALS: BP 142/63
[2022-06-12 16:17] LABS: SPEC. GRAVITY BODY FLUIDS 1.019 (NOT ESTABLISHED)
[2022-06-12 16:22] LABS: SOURCE, BODY FLUID ASCITES
[2022-06-12 16:23] LABS: APPEARANCE, BODY FLUID HAZY (CLEAR); ASCITES FL COLOR PALE YELLOW (COLORLESS)
[2022-06-12 16:53] LABS: FERRITIN 7.2 NG/ML (7.3-270.7); IRON (FE) 15 UG/DL (50-170); PERCENT SATURATION 4.1 % (13.2-45.0); TOTAL IRON BINDING CAPACITY 365 UG/DL (250-425); VITAMIN B12 LEVEL 183 PG/ML (211-911)
[2022-06-12 16:54] LABS: FOLATE 6.64 NG/ML (>5.4)
[2022-06-12 17:42] LABS: SOURCE, BODY FLUID ALBUMIN ASCITES
[2022-06-12 17:49] LABS: SOURCE, BODY FLUID GLUCOSE ASCITES; SOURCE, BODY FLUID TOT PROTEIN ASCITES; TOTAL PROTEIN, BODY FLUID 2.2 G/DL (NOT ESTABLISHED)
[2022-06-12] MEDS: MIDODRINE 5 MG TAB PO SCH (18:38)
[2022-06-12] MEDS: PREGABALIN 100 MG CAP (LYRICA) PO SCH ×2 (18:39→23:12)
[2022-06-12] MEDS: INSULIN LISPRO (NovoLOG) PER UNIT SC SCH ×2 (18:40→21:00)
[2022-06-12] MEDS: rOPINIRole 0.25 MG TAB(REQUIP) PO SCH (21:00)
[2022-06-12] MEDS ORDERED: LEVEMIR (INSULIN DETEMIR) 1 UNITS/0.01ML SC SCH (21:00)
[2022-06-12] MEDS ORDERED: POTASSIUM CHLORIDE 10MEQ SR TABLET PO SCH (21:00)
[2022-06-12 21:33] VITALS: BP 148/67
[2022-06-12] MEDS ORDERED: ONDANSETRON 4MG 2ML VIAL IV PRN (22:45)
[2022-06-12] MEDS: MONTELUKAST 10 MG TAB PO SCH (23:12)
[2022-06-12] MEDS: ATORVASTATIN 10 MG TAB PO SCH (23:12)
[2022-06-13] MEDS: INSULIN LISPRO (NovoLOG) PER UNIT SC SCH ×4 (07:30→20:55)
[2022-06-13 08:52] LABS: HEMATOCRIT 29.7 % (36.0-47.0); HEMOGLOBIN 8.1 g/dl (12.0-15.5); MEAN CORPUSCULAR HEMOGLOBIN 20.1 pg (27.0-33.0); MEAN CORPUSCULAR HGB CONC 27.3 g/dl (32.0-36.5); MEAN CORPUSCULAR VOLUME 73.9 fl (80.0-96.0); PLATELET COUNT, AUTOMATED 146 10^3/uL (150-450); RED BLOOD COUNT 4.02 10^6/uL (4.00-5.40); WHITE BLOOD COUNT 4.5 10^3/uL (4.0-10.0)
[2022-06-13 09:25] LABS: ALBUMIN 2.8 G/DL (3.2-5.2); ALT/SGPT 9 U/L (7.0-40); BILIRUBIN,TOTAL 0.8 MG/DL (0.3-1.2); BLOOD UREA NITROGEN 19 MG/DL (9-23); CALCIUM LEVEL 8.6 MG/DL (8.3-10.6); CARBON DIOXIDE LEVEL 24 MMOL/L (20-31); CHLORIDE LEVEL 110 MMOL/L (98-107); CREATININE FOR GFR 0.93 MG/DL (0.55-1.30); GLOMERULAR FILTRATION RATE > 60.0 (>32); GLUCOSE, FASTING 83 MG/DL (74-106); MAGNESIUM LEVEL 1.8 MG/DL (1.8-2.4); PHOSPHORUS LEVEL 3.6 MG/DL (2.4-5.1); POTASSIUM SERUM 4.2 MMOL/L (3.5-5.1); SODIUM LEVEL 143 MMOL/L (136-145); TOTAL PROTEIN 5.5 G/DL (5.7-8.2)
[2022-06-13] MEDS ORDERED: IRON SUCROSE 200 MG in NS 100 ML IV ONE (10:00)
[2022-06-13] MEDS: MIDODRINE 5 MG TAB PO SCH ×3 (10:22→15:38)
[2022-06-13] MEDS: OMEPRAZOLE 20MG CAP PO SCH ×2 (10:22→14:15)
[2022-06-13] MEDS: POTASSIUM CHLORIDE 10MEQ SR TABLET PO SCH ×3 (10:23→21:00)
[2022-06-13] MEDS: PREGABALIN 100 MG CAP (LYRICA) PO SCH ×4 (10:24→21:00)
[2022-06-13] MEDS: APIXABAN 5 MG TAB (ELIQUIS) PO SCH ×3 (10:25→21:00)
[2022-06-13 13:50] VITALS: BP 128/58
[2022-06-13] MEDS: SENOKOT S TAB PO SCH ×3 (14:15→21:00)
[2022-06-13] MEDS: SPIRONOLACTONE 12.5MG PER 1/2 TABLET PO SCH (14:15)
[2022-06-13] MEDS: CYANOCOBALAMIN 500 MCG TAB PO SCH (14:15)
[2022-06-13] MEDS: TORSEMIDE 10 MG TABLET PO SCH (15:39)
[2022-06-13 16:00] VITALS: BP 132/63
[2022-06-13] MEDS ORDERED: MIRALAX *UNIT DOSE* 17GM PACKET PO SCH (16:00)
[2022-06-13 17:23] LABS: HEMATOCRIT 30.2 % (36.0-47.0); HEMOGLOBIN 8.6 g/dl (12.0-15.5)
[2022-06-13] MEDS ORDERED: MIRALAX *UNIT DOSE* 17GM PACKET PO PRN (17:55)
[2022-06-13 20:00] VITALS: BP 130/61
[2022-06-13] MEDS: rOPINIRole 0.25 MG TAB(REQUIP) PO SCH ×2 (20:54→21:00)
[2022-06-13] MEDS: MONTELUKAST 10 MG TAB PO SCH ×2 (20:54→21:00)
[2022-06-13] MEDS: ATORVASTATIN 10 MG TAB PO SCH ×2 (20:54→21:00)
[2022-06-13] MEDS: LEVEMIR (INSULIN DETEMIR) 1 UNITS/0.01ML SC SCH ×2 (20:55→21:00)
[2022-06-14] VITALS: BP 127/60
[2022-06-14 04:00] VITALS: BP 128/59
[2022-06-14 06:52] LABS: HEMATOCRIT 31.3 % (36.0-47.0); HEMOGLOBIN 8.7 g/dl (12.0-15.5); MEAN CORPUSCULAR HEMOGLOBIN 20.5 pg (27.0-33.0); MEAN CORPUSCULAR HGB CONC 27.8 g/dl (32.0-36.5); MEAN CORPUSCULAR VOLUME 73.8 fl (80.0-96.0); PLATELET COUNT, AUTOMATED 138 10^3/uL (150-450); RED BLOOD COUNT 4.24 10^6/uL (4.00-5.40); WHITE BLOOD COUNT 3.7 10^3/uL (4.0-10.0)
[2022-06-14 07:30] LABS: CALCIUM LEVEL 7.9 MG/DL (8.3-10.6); CREATININE FOR GFR 1.01 MG/DL (0.55-1.30); GLOMERULAR FILTRATION RATE 55.9 (>32); MAGNESIUM LEVEL 1.9 MG/DL (1.8-2.4); PHOSPHORUS LEVEL 3.3 MG/DL (2.4-5.1); POTASSIUM SERUM 3.7 MMOL/L (3.5-5.1)
[2022-06-14 09:07] VITALS: BP 125/59
[2022-06-14] MEDS: MIDODRINE 5 MG TAB PO SCH ×3 (09:09→17:26)
[2022-06-14] MEDS: INSULIN LISPRO (NovoLOG) PER UNIT SC SCH ×4 (09:09→21:00)
[2022-06-14 09:13] LABS: INR 1.23; PARTIAL THROMBOPLASTIN TIME 29.6 SECONDS (24.8-34.2); PROTHROMBIN TIME 15.8 SECONDS (12.5-14.5)
[2022-06-14] MEDS ORDERED: PILL CUTTER 1 EACH XX ONE (09:13)
[2022-06-14] MEDS: SPIRONOLACTONE 12.5MG PER 1/2 TABLET PO SCH (09:45)
[2022-06-14] MEDS: APIXABAN 5 MG TAB (ELIQUIS) PO SCH ×2 (09:45→21:05)
[2022-06-14] MEDS: PREGABALIN 100 MG CAP (LYRICA) PO SCH ×3 (09:45→21:05)
[2022-06-14] MEDS: SENOKOT S TAB PO SCH ×2 (09:45→21:05)
[2022-06-14] MEDS: TORSEMIDE 10 MG TABLET PO SCH (09:45)
[2022-06-14] MEDS: OMEPRAZOLE 20MG CAP PO SCH (09:45)
[2022-06-14] MEDS: POTASSIUM CHLORIDE 10MEQ SR TABLET PO SCH ×2 (09:45→21:04)
[2022-06-14] MEDS: CYANOCOBALAMIN 500 MCG TAB PO SCH (09:45)
[2022-06-14] MEDS ORDERED: oxyCODONE 5MG TAB PO ONE ×2 (11:55→17:05)
[2022-06-14] MEDS ORDERED: IRON SUCROSE 200 MG in NS 100 ML IV ONE (14:00)
[2022-06-14 20:00] VITALS: BP 131/62
[2022-06-14] MEDS: rOPINIRole 0.25 MG TAB(REQUIP) PO SCH (21:04)
[2022-06-14] MEDS: ATORVASTATIN 10 MG TAB PO SCH (21:04)
[2022-06-14] MEDS: MONTELUKAST 10 MG TAB PO SCH (21:05)
[2022-06-14] MEDS: LEVEMIR (INSULIN DETEMIR) 1 UNITS/0.01ML SC SCH (21:06)
[2022-06-15] VITALS (7 sets, daily range): BP systolic 120–164; BP diastolic 56–67
[2022-06-15 07:11] LABS: HEMATOCRIT 31.1 % (36.0-47.0); HEMOGLOBIN 8.5 g/dl (12.0-15.5); MEAN CORPUSCULAR HEMOGLOBIN 20.2 pg (27.0-33.0); MEAN CORPUSCULAR HGB CONC 27.3 g/dl (32.0-36.5); PLATELET COUNT, AUTOMATED 131 10^3/uL (150-450); WHITE BLOOD COUNT 3.6 10^3/uL (4.0-10.0)
[2022-06-15 07:27] LABS: CALCIUM LEVEL 7.9 MG/DL (8.3-10.6); CREATININE FOR GFR 1.1 MG/DL (0.55-1.30); GLOMERULAR FILTRATION RATE 50.6 (>32); MAGNESIUM LEVEL 1.6 MG/DL (1.8-2.4); PHOSPHORUS LEVEL 3.3 MG/DL (2.4-5.1); POTASSIUM SERUM 3.8 MMOL/L (3.5-5.1)
[2022-06-15] MEDS: INSULIN LISPRO (NovoLOG) PER UNIT SC SCH ×4 (07:30→20:05)
[2022-06-15] MEDS ORDERED: MAGNESIUM OXIDE 400MG TAB (MAG-OX) PO ONE (08:35)
[2022-06-15] MEDS: MIDODRINE 5 MG TAB PO SCH ×3 (08:54→17:39)
[2022-06-15] MEDS: OMEPRAZOLE 20MG CAP PO SCH (08:56)
[2022-06-15] MEDS: PREGABALIN 100 MG CAP (LYRICA) PO SCH ×3 (08:57→20:14)
[2022-06-15] MEDS: POTASSIUM CHLORIDE 10MEQ SR TABLET PO SCH ×2 (08:57→20:13)
[2022-06-15] MEDS: TORSEMIDE 10 MG TABLET PO SCH (08:58)
[2022-06-15] MEDS: SPIRONOLACTONE 12.5MG PER 1/2 TABLET PO SCH (08:58)
[2022-06-15] MEDS: CYANOCOBALAMIN 500 MCG TAB PO SCH (08:58)
[2022-06-15] MEDS ORDERED: POTASSIUM CHLORIDE 10MEQ SR TABLET PO ONE (10:30)
[2022-06-15] MEDS ORDERED: GOLYTELY SOLN 4000 ML BTL PO ONE ×2 (16:00→18:00)
[2022-06-15] MEDS ORDERED: BISACODYL 5 MG TAB PO ONE (18:00)
[2022-06-15] MEDS: MONTELUKAST 10 MG TAB PO SCH (20:13)
[2022-06-15] MEDS: rOPINIRole 0.25 MG TAB(REQUIP) PO SCH (20:13)
[2022-06-15] MEDS: ATORVASTATIN 10 MG TAB PO SCH (20:14)
[2022-06-15] MEDS: D5W/0.45% SODIUM CHLORIDE 1,000 ML IV SCH (23:31)
[2022-06-16 04:32] VITALS: BP 139/60
[2022-06-16 05:19] LABS: HEMATOCRIT 29.8 % (36.0-47.0); HEMOGLOBIN 8.4 g/dl (12.0-15.5); MEAN CORPUSCULAR HEMOGLOBIN 20.7 pg (27.0-33.0); MEAN CORPUSCULAR HGB CONC 28.2 g/dl (32.0-36.5); MEAN CORPUSCULAR VOLUME 73.6 fl (80.0-96.0); PLATELET COUNT, AUTOMATED 124 10^3/uL (150-450); RED BLOOD COUNT 4.05 10^6/uL (4.00-5.40); WHITE BLOOD COUNT 3.8 10^3/uL (4.0-10.0)
[2022-06-16 05:57] LABS: BLOOD UREA NITROGEN 10 MG/DL (9-23); CALCIUM LEVEL 7.2 MG/DL (8.3-10.6); CARBON DIOXIDE LEVEL 23 MMOL/L (20-31); CHLORIDE LEVEL 105 MMOL/L (98-107); CREATININE FOR GFR 0.88 MG/DL (0.55-1.30); GLOMERULAR FILTRATION RATE > 60.0 (>32); GLUCOSE, FASTING 271 MG/DL (74-106); MAGNESIUM LEVEL 1.4 MG/DL (1.8-2.4); PHOSPHORUS LEVEL 2.9 MG/DL (2.4-5.1); POTASSIUM SERUM 3.6 MMOL/L (3.5-5.1); SODIUM LEVEL 139 MMOL/L (136-145)
[2022-06-16] MEDS: INSULIN LISPRO (NovoLOG) PER UNIT SC SCH ×4 (07:54→20:31)
[2022-06-16] MEDS: MIDODRINE 5 MG TAB PO SCH ×3 (08:00→16:51)
[2022-06-16 08:15] VITALS: BP 110/53
[2022-06-16] MEDS: TORSEMIDE 10 MG TABLET PO SCH (09:00)
[2022-06-16] MEDS ORDERED: PILL CUTTER 1 EACH XX PRN (11:05)
[2022-06-16] MEDS: OMEPRAZOLE 20MG CAP PO SCH (11:12)
[2022-06-16] MEDS: SPIRONOLACTONE 25 MG TAB PO SCH (11:12)
[2022-06-16] MEDS: PREGABALIN 100 MG CAP (LYRICA) PO SCH ×3 (11:16→20:35)
[2022-06-16] MEDS: POTASSIUM CHLORIDE 10MEQ SR TABLET PO SCH ×2 (11:16→20:35)
[2022-06-16] MEDS: CYANOCOBALAMIN 500 MCG TAB PO SCH (11:17)
[2022-06-16 12:00] VITALS: BP 134/62
[2022-06-16] MEDS: D5W/0.45% SODIUM CHLORIDE 1,000 ML IV SCH (13:42)
[2022-06-16] MEDS ORDERED: MAG SULF 1GM/100ML (MAG RUN) 1 GM in IV 1 EA IV ONE (16:00)
[2022-06-16 16:20] VITALS: BP 117/67
[2022-06-16] MEDS: SUCRALFATE SUSP 1GM/10ML UD PO SCH ×2 (16:51→23:56)
[2022-06-16 19:56] VITALS: BP 124/53
[2022-06-16] MEDS: rOPINIRole 0.25 MG TAB(REQUIP) PO SCH (20:35)
[2022-06-16] MEDS: ATORVASTATIN 10 MG TAB PO SCH (20:35)
[2022-06-16] MEDS: MONTELUKAST 10 MG TAB PO SCH (20:35)
[2022-06-16] MEDS: PANTOPRAZOLE 20 MG TAB PO SCH (20:35)
[2022-06-16] MEDS: APIXABAN 5 MG TAB (ELIQUIS) PO SCH (21:00)
[2022-06-16] MEDS: LEVEMIR (INSULIN DETEMIR) 1 UNITS/0.01ML SC SCH (21:23)
[2022-06-17] VITALS: BP 112/52
[2022-06-17 04:00] VITALS: BP 106/54
[2022-06-17] MEDS: SUCRALFATE SUSP 1GM/10ML UD PO SCH ×2 (06:00→11:59)
[2022-06-17] MEDS: INSULIN LISPRO (NovoLOG) PER UNIT SC SCH ×2 (07:30→12:00)
[2022-06-17 07:48] VITALS: BP 116/58
[2022-06-17 08:50] LABS: BASO % 0.4 % (0.0-1.0); EOS # 0.1 10^3/uL (0.0-0.5); EOS % 1.5 % (0.0-3.0); HEMATOCRIT 32.9 % (36.0-47.0); HEMOGLOBIN 9.2 g/dl (12.0-15.5); LYMPH # 1.3 10^3/uL (1.5-5.0); LYMPH % 28.6 % (24.0-44.0); MEAN CORPUSCULAR VOLUME 75.1 fl (80.0-96.0); MONO # 0.5 10^3/uL (0.0-0.8); MONO % 10.6 % (2.0-8.0); NEUTROPHILS # 2.7 10^3/uL (1.5-8.5); NEUTROPHILS % 58.7 % (36.0-66.0); PLATELET COUNT, AUTOMATED 130 10^3/uL (150-450); RED BLOOD COUNT 4.38 10^6/uL (4.00-5.40); WHITE BLOOD COUNT 4.6 10^3/uL (4.0-10.0)
[2022-06-17] MEDS: MIDODRINE 5 MG TAB PO SCH ×2 (08:59→12:00)
[2022-06-17] MEDS: CYANOCOBALAMIN 500 MCG TAB PO SCH (09:00)
[2022-06-17] MEDS: PREGABALIN 100 MG CAP (LYRICA) PO SCH (09:00)
[2022-06-17] MEDS: TORSEMIDE 10 MG TABLET PO SCH (09:00)
[2022-06-17] MEDS: APIXABAN 5 MG TAB (ELIQUIS) PO SCH (09:00)
[2022-06-17] MEDS: PANTOPRAZOLE 20 MG TAB PO SCH (09:00)
[2022-06-17] MEDS: POTASSIUM CHLORIDE 10MEQ SR TABLET PO SCH (09:01)
[2022-06-17] MEDS: SPIRONOLACTONE 25 MG TAB PO SCH (09:10)
[2022-06-17 09:56] LABS: ALBUMIN 2.7 G/DL (3.2-5.2); BILIRUBIN,TOTAL 0.8 MG/DL (0.3-1.2); CALCIUM LEVEL 7.8 MG/DL (8.3-10.6); CREATININE FOR GFR 0.99 MG/DL (0.55-1.30); GLOMERULAR FILTRATION RATE 57.2 (>32); MAGNESIUM LEVEL 1.7 MG/DL (1.8-2.4); POTASSIUM SERUM 3.7 MMOL/L (3.5-5.1); TOTAL PROTEIN 5.6 G/DL (5.7-8.2)
[2022-06-17] MEDS ORDERED: POTASSIUM CHLORIDE 10MEQ SR TABLET PO ONE (11:10)
[2022-06-17 11:17] VITALS: BP 128/56
[2022-06-17] MEDS ORDERED: TORS10TA3 PO (11:20)
[2022-06-17] MEDS ORDERED: SPIR-10 PO (11:20)
[2022-06-17] MEDS ORDERED: PANT20TA6 PO (11:22)
[2022-06-17] MEDS ORDERED: SUCR1TA PO (11:22)
[2022-06-17] MEDS ORDERED: ESSE250T PO (11:28)
[2022-06-17] MEDS ORDERED: MAG SULF 1GM/100ML (MAG RUN) 1 GM in IV 1 EA IV ONE (12:00)
== END 2022-06-17 16:33 | disposition home health service (06) | DRG 433 ==
LOC: M ED 06:25 → M ED INP 11:06 → ENRESERV 06-13 12:03 → M PCU 06-13 13:45
PROVIDERS: ADMIT Internal Medicine; ATTEND Internal Medicine
PROC: 0W9G3ZZ Drainage of Peritoneal Cavity, Percutaneous Approach (ICD-10-PCS; 2022-06-12)
PROC: 30233N1 Transfusion of Nonautologous Red Blood Cells into Peripheral Vein, Percutaneous Approach (ICD-10-PCS; 2022-06-12)
PROC: 0DBK8ZX Excision of Ascending Colon, Via Natural or Artificial Opening Endoscopic, Diagnostic (ICD-10-PCS; 2022-06-16)
PROC: 0DBH8ZX Excision of Cecum, Via Natural or Artificial Opening Endoscopic, Diagnostic (ICD-10-PCS; 2022-06-16)
PROC: 0W3P8ZZ Control Bleeding in Gastrointestinal Tract, Via Natural or Artificial Opening Endoscopic (ICD-10-PCS; principal; 2022-06-16 23:22)
DX: K74.60 Unspecified cirrhosis of liver (principal); R18.8 Other ascites; D62 Acute posthemorrhagic anemia; D61.818 Other pancytopenia; I50.32 Chronic diastolic (congestive) heart failure; E11.9 Type 2 diabetes mellitus without complications; E78.5 Hyperlipidemia, unspecified; G25.81 Restless legs syndrome; F41.9 Anxiety disorder, unspecified; K21.9 Gastro-esophageal reflux disease without esophagitis; E03.9 Hypothyroidism, unspecified; I48.0 Paroxysmal atrial fibrillation; F32.A Depression, unspecified; Z86.16 Personal history of COVID-19; H81.10 Benign paroxysmal vertigo, unspecified ear; Z98.49 Cataract extraction status, unspecified eye; Z90.49 Acquired absence of other specified parts of digestive tract; D50.9 Iron deficiency anemia, unspecified; I11.0 Hypertensive heart disease with heart failure; D69.59 Other secondary thrombocytopenia; I95.1 Orthostatic hypotension; Z79.01 Long term (current) use of anticoagulants; Z79.4 Long term (current) use of insulin; Z79.899 Other long term (current) drug therapy; Z88.1 Allergy status to other antibiotic agents; Z88.8 Allergy status to other drugs, medicaments and biological substances; Z91.048 Other nonmedicinal substance allergy status; K76.0 Fatty (change of) liver, not elsewhere classified; S62.340A Nondisplaced fracture of base of second metacarpal bone, right hand, initial encounter for closed fracture; K29.70 Gastritis, unspecified, without bleeding; K31.7 Polyp of stomach and duodenum; K25.9 Gastric ulcer, unspecified as acute or chronic, without hemorrhage or perforation; K57.30 Diverticulosis of large intestine without perforation or abscess without bleeding; K64.4 Residual hemorrhoidal skin tags; K64.8 Other hemorrhoids; D12.2 Benign neoplasm of ascending colon; D12.0 Benign neoplasm of cecum; E83.42 Hypomagnesemia; E87.6 Hypokalemia; W19.XXXA Unspecified fall, initial encounter; Y92.9 Unspecified place or not applicable; Y93.9 Activity, unspecified; Y99.8 Other external cause status

== ENCOUNTER → 2022-06-26 | Outpatient (REF) | payer MEDICARE, BC, OTHER ==
[~2022-06-26] MED LIST changes: +ACET-1349 PO; +ESSE250T PO; +PANT20TA6 PO; +SUCR1TA PO; +TORS10TA3 PO; +med rec comment
[2022-06-26 19:33] LABS: PERCENT SATURATION 8.2 % (13.2-45.0)
== END ==
LOC: M LAB REF 16:24
PROVIDERS: ATTEND Internal Medicine
DX: D50.9 Iron deficiency anemia, unspecified (principal)

== ENCOUNTER → 2022-07-31 | Outpatient (REF) | payer MEDICARE, BC, OTHER ==
[2022-07-31 17:28] LABS: PERCENT SATURATION 6.9 % (13.2-45.0)
[2022-07-31 17:30] LABS: FERRITIN 19.6 NG/ML (7.3-270.7)
== END ==
LOC: M LAB REF 16:13
PROVIDERS: ATTEND Internal Medicine
DX: D50.9 Iron deficiency anemia, unspecified (principal); R42 Dizziness and giddiness

== ENCOUNTER → 2022-09-04 | Outpatient (CLI) | payer MEDICARE, BC, OTHER ==
[~2022-09-04] MED LIST changes: +LIDOCAINE 1% MDV 20ML VIAL As Ordered ONE
[2022-09-04 13:57] VITALS: BP 148/70
[2022-09-04 14:10] VITALS: BP 155/68
[2022-09-04 14:20] VITALS: BP 153/68
[2022-09-04 14:36] LABS: SOURCE, BODY FLUID ASCITES
[2022-09-04 14:37] LABS: APPEARANCE, BODY FLUID CLEAR (CLEAR); ASCITES FL COLOR YELLOW (COLORLESS)
[2022-09-04 15:20] LABS: SOURCE, BODY FLUID ALBUMIN ASCITES
[2022-09-04 15:28] LABS: SOURCE, BODY FLUID TOT PROTEIN ASCITES; TOTAL PROTEIN, BODY FLUID 2.5 G/DL (NOT ESTABLISHED)
== END ==
LOC: M IRPRO 12:35
PROVIDERS: ATTEND Internal Medicine Gastroenterology
DX: R18.8 Other ascites (principal); D50.0 Iron deficiency anemia secondary to blood loss (chronic)
CPT/HCPCS: 49083; 82042; 84157; 89051; 96365; P9047

== ENCOUNTER → 2022-09-16 | Outpatient (CLI) | payer MEDICARE, BC, OTHER ==
[~2022-09-16] MED LIST changes: -LIDOCAINE 1% MDV 20ML VIAL As Ordered ONE
[2022-09-16 13:20] LABS: BASO % 0.5 % (0.0-1.0); EOS % 0.9 % (0.0-3.0); HEMATOCRIT 34.5 % (36.0-47.0); HEMOGLOBIN 9.9 g/dl (12.0-15.5); LYMPH # 0.9 10^3/uL (1.5-5.0); MEAN CORPUSCULAR HGB CONC 28.7 g/dl (32.0-36.5); MEAN CORPUSCULAR VOLUME 76.5 fl (80.0-96.0); MONO # 0.4 10^3/uL (0.0-0.8); MONO % 9.8 % (2.0-8.0); NEUTROPHILS # 2.9 10^3/uL (1.5-8.5); NEUTROPHILS % 67.3 % (36.0-66.0); PLATELET COUNT, AUTOMATED 191 10^3/uL (150-450); RED BLOOD COUNT 4.51 10^6/uL (4.00-5.40); WHITE BLOOD COUNT 4.3 10^3/uL (4.0-10.0)
[2022-09-16 13:39] LABS: PERCENT SATURATION 9.6 % (13.2-45.0)
[2022-09-16 13:44] LABS: ALBUMIN 3.1 G/DL (3.2-5.2); BILIRUBIN,DIRECT 0.3 MG/DL (<0.4); BILIRUBIN,TOTAL 0.9 MG/DL (0.3-1.2); CALCIUM LEVEL 8.5 MG/DL (8.3-10.6); CREATININE FOR GFR 1.08 MG/DL (0.55-1.30); FERRITIN 12.8 NG/ML (7.3-270.7); GLOMERULAR FILTRATION RATE 51.7 (>32); POTASSIUM SERUM 3.3 MMOL/L (3.5-5.1)
[2022-09-16 13:45] LABS: INR 1.72; PROTHROMBIN TIME 20.5 SECONDS (12.5-14.5)
[2022-09-16 18:40] LABS: TOTAL PROTEIN 6.6 G/DL (5.7-8.2)
== END ==
LOC: M WUC 11:58
PROVIDERS: ATTEND Internal Medicine Gastroenterology
DX: K74.60 Unspecified cirrhosis of liver (principal); R18.8 Other ascites; D50.0 Iron deficiency anemia secondary to blood loss (chronic)

== ENCOUNTER → 2022-10-01 | Outpatient (CLI) | payer MEDICARE, BC, OTHER ==
[~2022-10-01] MED LIST changes: +DULO1CAP5 PO; +FLEC25TA PO; +MONT-5 PO; +PANT40TA29 PO; +POTA-151 PO; +PROP20TA72 PO; -SING10TA32 PO
[2022-10-01 14:06] VITALS: BP 112/56
[2022-10-01 14:11] VITALS: BP 111/59
[2022-10-01 14:14] VITALS: BP 111/59
[2022-10-01 14:16] LABS: APPEARANCE, BODY FLUID CLEAR (CLEAR); ASCITES FL COLOR YELLOW (COLORLESS); SOURCE, BODY FLUID ASCITES
[2022-10-01 14:18] VITALS: BP 111/64
[2022-10-01 16:08] LABS: SOURCE, BODY FLUID ALBUMIN ASCITES
[2022-10-01 16:47] LABS: SOURCE, BODY FLUID TOT PROTEIN ASCITES; TOTAL PROTEIN, BODY FLUID 2.6 G/DL (NOT ESTABLISHED)
== END ==
LOC: M IRPRO 12:29
PROVIDERS: ATTEND Internal Medicine Gastroenterology
DX: R18.8 Other ascites (principal); D50.0 Iron deficiency anemia secondary to blood loss (chronic)
CPT/HCPCS: 49083; 82042; 84157; 89051; 96374; P9047

== ENCOUNTER → 2022-10-12 | Outpatient (CLI) | payer MEDICARE, BC, OTHER | LOC: M LABSMTC 10:21 | PROVIDERS: ATTEND Anesthesiology | DX: Z01.818 Encounter for other preprocedural examination (principal); Z11.52 Encounter for screening for COVID-19 ==

== ENCOUNTER → 2022-10-13 | Outpatient (CLI) | payer MEDICARE, BC, OTHER | LOC: M WUC 15:09 | PROVIDERS: ATTEND Physician Assistant | DX: S90.31XA Contusion of right foot, initial encounter (principal); W18.30XA Fall on same level, unspecified, initial encounter; Y92.009 Unspecified place in unspecified non-institutional (private) residence as the place of occurrence of the external cause ==

== ENCOUNTER 2022-10-15 13:11 | Day surgery (SDC) | payer MEDICARE, BC, OTHER ==
[~2022-10-15] VITALS: Ht 157.5 cm; Wt 71.7 kg
[~2022-10-15 13:11] MED LIST changes: +NS 1,000 ML IV ONE
[2022-10-15] MEDS ORDERED: fentaNYL 100 MCG/2 ML INJECTION As Ordered ONE (13:57)
[2022-10-15] MEDS ORDERED: propofoL 200 MG/20 ML VIAL As Ordered ONE ×2 (13:59→15:12)
[2022-10-15] MEDS ORDERED: LIDOCAINE 2% 100MG/5ML SDV (FOR ANES.) As Ordered ONE (13:59)
[2022-10-15 15:55] VITALS: BP 117/57
== END 2022-10-15 16:03 | disposition home or self-care (01) ==
LOC: M OPP 13:11
PROVIDERS: ATTEND Internal Medicine Gastroenterology
DX: K25.9 Gastric ulcer, unspecified as acute or chronic, without hemorrhage or perforation (principal); K31.7 Polyp of stomach and duodenum; D50.0 Iron deficiency anemia secondary to blood loss (chronic); E10.9 Type 1 diabetes mellitus without complications; I48.91 Unspecified atrial fibrillation; I10 Essential (primary) hypertension; E78.00 Pure hypercholesterolemia, unspecified; E03.9 Hypothyroidism, unspecified; K74.60 Unspecified cirrhosis of liver; G25.81 Restless legs syndrome; R60.9 Edema, unspecified; Z79.01 Long term (current) use of anticoagulants; Z79.02 Long term (current) use of antithrombotics/antiplatelets; Z79.4 Long term (current) use of insulin; Z79.52 Long term (current) use of systemic steroids; Z88.1 Allergy status to other antibiotic agents; Z88.8 Allergy status to other drugs, medicaments and biological substances; Z91.048 Other nonmedicinal substance allergy status
CPT/HCPCS: 43239; 88305; J3010

== ENCOUNTER → 2022-10-30 | Outpatient (CLI) | payer MEDICARE, BC, OTHER ==
[~2022-10-30] MED LIST changes: +ARTIDRO4 OU; -NS 1,000 ML IV ONE; -POLYOPD OU
[2022-10-30 13:31] VITALS: BP 131/64
[2022-10-30 13:45] LABS: APPEARANCE, BODY FLUID HAZY (CLEAR); ASCITES FL COLOR YELLOW (COLORLESS); SOURCE, BODY FLUID ASCITES
[2022-10-30 13:58] LABS: SOURCE, BODY FLUID ALBUMIN ASCITES
[2022-10-30 14:05] LABS: SOURCE, BODY FLUID TOT PROTEIN ASCITES; TOTAL PROTEIN, BODY FLUID 2.6 G/DL (NOT ESTABLISHED)
== END ==
LOC: M IRPRO 11:16
PROVIDERS: ATTEND Internal Medicine Gastroenterology
DX: R18.8 Other ascites (principal); D50.0 Iron deficiency anemia secondary to blood loss (chronic)
CPT/HCPCS: 49083; 82042; 84157; 89051; 96374; P9047

== ENCOUNTER 2022-11-09 02:23 | Emergency (ER) | payer MEDICARE, BC, OTHER ==
[~2022-11-09] VITALS: Ht 157.5 cm; Wt 77.0 kg
[2022-11-09 02:48] LABS: BASO % 0.5 % (0.0-1.0); EOS # 0.1 10^3/uL (0.0-0.5); EOS % 1.8 % (0.0-3.0); HEMATOCRIT 29.9 % (36.0-47.0); HEMOGLOBIN 8.4 g/dl (12.0-15.5); LYMPH # 0.8 10^3/uL (1.5-5.0); LYMPH % 17.6 % (24.0-44.0); MEAN CORPUSCULAR HEMOGLOBIN 20.6 pg (27.0-33.0); MEAN CORPUSCULAR HGB CONC 28.1 g/dl (32.0-36.5); MEAN CORPUSCULAR VOLUME 73.3 fl (80.0-96.0); MONO # 0.5 10^3/uL (0.0-0.8); MONO % 10.1 % (2.0-8.0); NEUTROPHILS # 3.1 10^3/uL (1.5-8.5); NEUTROPHILS % 69.5 % (36.0-66.0); PLATELET COUNT, AUTOMATED 162 10^3/uL (150-450); RED BLOOD COUNT 4.08 10^6/uL (4.00-5.40); WHITE BLOOD COUNT 4.4 10^3/uL (4.0-10.0)
[2022-11-09 03:02] LABS: INR 1.33; PROTHROMBIN TIME 16.7 SECONDS (12.5-14.5)
[2022-11-09 03:12] LABS: LIPASE 23 U/L (12-53)
[2022-11-09 03:14] LABS: ALBUMIN 3.2 G/DL (3.2-5.2); ALKALINE PHOSPHATASE 107 U/L (46-116); ALT/SGPT 11 U/L (7.0-40); AST/SGOT 14 U/L (<34); BILIRUBIN,DIRECT 0.2 MG/DL (<0.4); BILIRUBIN,TOTAL 0.4 MG/DL (0.3-1.2); BLOOD UREA NITROGEN 17 MG/DL (9-23); CARBON DIOXIDE LEVEL 27 MMOL/L (20-31); CHLORIDE LEVEL 104 MMOL/L (98-107); CK-MB VALUE MASS < 1.0 NG/ML (<3.6); CPK CREATINE PHOSPHOKINASE 45 U/L (34-145); CREATININE FOR GFR 1.05 MG/DL (0.55-1.30); GLOMERULAR FILTRATION RATE 53.4 (>32); GLUCOSE, FASTING 168 MG/DL (74-106); MB/CK RELATIVE INDEX 2.22 (< OR =4); SODIUM LEVEL 136 MMOL/L (136-145); TOTAL PROTEIN 6.6 G/DL (5.7-8.2)
[2022-11-09 04:38] LABS: CK-MB VALUE MASS < 1.0 NG/ML (<3.6)
[2022-11-09 04:53] LABS: CPK CREATINE PHOSPHOKINASE 54 U/L (34-145); MB/CK RELATIVE INDEX 1.85 (< OR =4)
[2022-11-09 06:50] LABS: CK-MB VALUE MASS < 1.0 NG/ML (<3.6)
[2022-11-09 06:51] LABS: CPK CREATINE PHOSPHOKINASE 39 U/L (34-145); MB/CK RELATIVE INDEX 2.56 (< OR =4)
[2022-11-09] MEDS ORDERED: ISOVUE-370 76% 100ML VIAL As Ordered ONE (07:41)
[2022-11-09 09:15] VITALS: BP 117/56
== END 2022-11-09 09:31 | disposition home or self-care (01) ==
LOC: EDBD 02:23 → M ED 02:23
DX: R07.89 Other chest pain (principal); I48.91 Unspecified atrial fibrillation; E11.9 Type 2 diabetes mellitus without complications; K21.9 Gastro-esophageal reflux disease without esophagitis; E78.5 Hyperlipidemia, unspecified; Z88.8 Allergy status to other drugs, medicaments and biological substances; Z79.899 Other long term (current) drug therapy
CPT/HCPCS: 36415; 71045; 71275; 80048; 80076; 82550; 82553; 83690; 83880; 84484; 85025; 85610; 87486; 87581; 87633; 87798; 93005; 93041; 94760; 99285; Q9967

== ENCOUNTER → 2022-11-27 | Outpatient (CLI) | payer MEDICARE, BC, OTHER ==
[2022-11-27 10:20] VITALS: BP 148/69
[2022-11-27 10:23] VITALS: BP 148/69
[2022-11-27 10:29] VITALS: BP 149/70
[2022-11-27 10:34] VITALS: BP 146/68
[2022-11-27 10:37] LABS: APPEARANCE, BODY FLUID HAZY (CLEAR); ASCITES FL COLOR YELLOW (COLORLESS); SOURCE, BODY FLUID ASCITES
[2022-11-27 11:45] LABS: SOURCE, BODY FLUID ALBUMIN ASCITES
[2022-11-27 11:52] LABS: SOURCE, BODY FLUID TOT PROTEIN ASCITES; TOTAL PROTEIN, BODY FLUID 2.7 G/DL (NOT ESTABLISHED)
== END ==
LOC: M IRPRO 09:35
PROVIDERS: ATTEND Internal Medicine Gastroenterology
DX: D50.0 Iron deficiency anemia secondary to blood loss (chronic) (principal)
CPT/HCPCS: 49083; 82042; 84157; 89051; 96374; P9047

== ENCOUNTER → 2022-12-03 | Outpatient (CLI) | payer MEDICARE, BC, OTHER ==
[2022-12-03 16:46] LABS: BASO % 0.7 % (0.0-1.0); EOS # 0.1 10^3/uL (0.0-0.5); EOS % 1.2 % (0.0-3.0); HEMATOCRIT 27.1 % (36.0-47.0); HEMOGLOBIN 7.6 g/dl (12.0-15.5); LYMPH # 1.2 10^3/uL (1.5-5.0); LYMPH % 27.3 % (24.0-44.0); MEAN CORPUSCULAR HEMOGLOBIN 20.3 pg (27.0-33.0); MEAN CORPUSCULAR VOLUME 72.3 fl (80.0-96.0); MONO # 0.4 10^3/uL (0.0-0.8); NEUTROPHILS # 2.6 10^3/uL (1.5-8.5); NEUTROPHILS % 61.6 % (36.0-66.0); PLATELET COUNT, AUTOMATED 161 10^3/uL (150-450); RED BLOOD COUNT 3.75 10^6/uL (4.00-5.40); WHITE BLOOD COUNT 4.2 10^3/uL (4.0-10.0)
[2022-12-03 16:49] LABS: ALBUMIN 3.3 G/DL (3.2-5.2); BILIRUBIN,TOTAL 0.5 MG/DL (0.3-1.2); CALCIUM LEVEL 8.1 MG/DL (8.3-10.6); CREATININE FOR GFR 1.09 MG/DL (0.55-1.30); GLOMERULAR FILTRATION RATE 51.2 (>32); POTASSIUM SERUM 4.2 MMOL/L (3.5-5.1); TOTAL PROTEIN 6.6 G/DL (5.7-8.2)
[2022-12-03 16:51] LABS: FREE T4 0.93 NG/DL (0.89-1.76)
[2022-12-03 16:53] LABS: HEMOGLOBIN A1c 6.4 % (4.0-6.0)
[2022-12-03 17:14] LABS: THYROID STIMULATING HORMONE 2.933 uIU/ML (0.55-4.78)
== END ==
LOC: M WUC 13:08
PROVIDERS: ATTEND Nurse Practitioner Adult Health
DX: I11.0 Hypertensive heart disease with heart failure (principal); K74.60 Unspecified cirrhosis of liver; E11.69 Type 2 diabetes mellitus with other specified complication; I50.9 Heart failure, unspecified; D50.0 Iron deficiency anemia secondary to blood loss (chronic)

== ENCOUNTER → 2022-12-03 | Outpatient (CLI) | payer MEDICARE, BC, OTHER | LOC: M LAB 13:45 | PROVIDERS: ATTEND Nurse Practitioner Adult Health | DX: K74.60 Unspecified cirrhosis of liver (principal) ==

== ENCOUNTER → 2022-12-03 | Outpatient (CLI) | payer MEDICARE, BC, OTHER ==
[2022-12-03 16:47] LABS: EOS # 0.1 10^3/uL (0.0-0.5); EOS % 2.6 % (0.0-3.0); HEMATOCRIT 27.6 % (36.0-47.0); HEMOGLOBIN 7.6 g/dl (12.0-15.5); LYMPH # 1.1 10^3/uL (1.5-5.0); LYMPH % 26.4 % (24.0-44.0); MEAN CORPUSCULAR HEMOGLOBIN 19.9 pg (27.0-33.0); MEAN CORPUSCULAR HGB CONC 27.5 g/dl (32.0-36.5); MEAN CORPUSCULAR VOLUME 72.3 fl (80.0-96.0); MONO # 0.4 10^3/uL (0.0-0.8); MONO % 10.2 % (2.0-8.0); NEUTROPHILS # 2.5 10^3/uL (1.5-8.5); NEUTROPHILS % 59.6 % (36.0-66.0); PLATELET COUNT, AUTOMATED 159 10^3/uL (150-450); RED BLOOD COUNT 3.82 10^6/uL (4.00-5.40); WHITE BLOOD COUNT 4.2 10^3/uL (4.0-10.0)
[2022-12-03 16:48] LABS: ALBUMIN 3.5 G/DL (3.2-5.2); BILIRUBIN,DIRECT 0.2 MG/DL (<0.4); BILIRUBIN,TOTAL 0.5 MG/DL (0.3-1.2); CALCIUM LEVEL 8.3 MG/DL (8.3-10.6); CREATININE FOR GFR 1.1 MG/DL (0.55-1.30); GLOMERULAR FILTRATION RATE 50.6 (>32); POTASSIUM SERUM 4.3 MMOL/L (3.5-5.1); TOTAL PROTEIN 6.7 G/DL (5.7-8.2)
[2022-12-03 16:52] LABS: CREATININE,RANDOM URINE 18.8 MG/DL
== END ==
LOC: M WUC 13:04
PROVIDERS: ATTEND Internal Medicine Gastroenterology
DX: D50.0 Iron deficiency anemia secondary to blood loss (chronic) (principal)

== ENCOUNTER → 2022-12-08 | Outpatient (CLI) | payer MEDICARE, BC, OTHER ==
[2022-12-08 14:12] VITALS: BP 134/62
[2022-12-08 14:15] VITALS: BP 130/63
[2022-12-08 14:16] VITALS: BP 130/63
[2022-12-08 14:25] VITALS: BP 121/58
== END ==
LOC: M IRPRO 12:43
PROVIDERS: ATTEND Internal Medicine Gastroenterology
DX: D50.0 Iron deficiency anemia secondary to blood loss (chronic) (principal)
CPT/HCPCS: 49083; 88108; 88305; 88313; 96374; P9047

== ENCOUNTER → 2022-12-28 | Outpatient (CLI) | payer MEDICARE, BC, OTHER | LOC: M PLAIMG 13:18 | PROVIDERS: ATTEND Family Medicine | DX: K59.00 Constipation, unspecified (principal) ==

== ENCOUNTER → 2022-12-28 | Outpatient (CLI) | payer MEDICARE, BC, OTHER ==
[2022-12-28 14:34] LABS: BASO % 0.7 % (0.0-1.0); EOS % 0.9 % (0.0-3.0); HEMATOCRIT 26.4 % (36.0-47.0); HEMOGLOBIN 7.3 g/dl (12.0-15.5); LYMPH # 0.8 10^3/uL (1.5-5.0); LYMPH % 19.7 % (24.0-44.0); MEAN CORPUSCULAR HEMOGLOBIN 19.2 pg (27.0-33.0); MEAN CORPUSCULAR HGB CONC 27.7 g/dl (32.0-36.5); MEAN CORPUSCULAR VOLUME 69.5 fl (80.0-96.0); MONO # 0.4 10^3/uL (0.0-0.8); MONO % 10.4 % (2.0-8.0); NEUTROPHILS # 2.9 10^3/uL (1.5-8.5); NEUTROPHILS % 68.1 % (36.0-66.0); PLATELET COUNT, AUTOMATED 183 10^3/uL (150-450); WHITE BLOOD COUNT 4.2 10^3/uL (4.0-10.0)
[2022-12-28 14:59] LABS: LIPASE 26 U/L (12-53)
[2022-12-28 15:00] LABS: AMYLASE 22 U/L (30-118)
[2022-12-28 15:01] LABS: ALBUMIN 3.3 G/DL (3.2-5.2); ALKALINE PHOSPHATASE 87 U/L (46-116); ALT/SGPT 9 U/L (7.0-40); AST/SGOT < 8 U/L (<34); BILIRUBIN,TOTAL 0.6 MG/DL (0.3-1.2); BLOOD UREA NITROGEN 19 MG/DL (9-23); CALCIUM LEVEL 7.7 MG/DL (8.3-10.6); CARBON DIOXIDE LEVEL 25 MMOL/L (20-31); CHLORIDE LEVEL 104 MMOL/L (98-107); CREATININE FOR GFR 1.19 MG/DL (0.55-1.30); GLOMERULAR FILTRATION RATE 46.1 (>32); GLUCOSE, FASTING 118 MG/DL (74-106); POTASSIUM SERUM 4.4 MMOL/L (3.5-5.1); SODIUM LEVEL 136 MMOL/L (136-145); TOTAL PROTEIN 6.8 G/DL (5.7-8.2)
== END ==
LOC: M LAB 13:58
PROVIDERS: ATTEND Family Medicine
DX: K74.60 Unspecified cirrhosis of liver (principal); K59.00 Constipation, unspecified

== ENCOUNTER → 2023-01-05 | Outpatient (CLI) | payer MEDICARE, BC, OTHER ==
[2023-01-05 10:12] VITALS: TEMP 96.9
[2023-01-05 10:36] VITALS: BP 125/57; O2SAT 100
[2023-01-05 10:45] VITALS: BP 104/54; O2SAT 100
[2023-01-05 10:53] VITALS: BP 130/60; O2SAT 100
[2023-01-05 12:03] LABS: APPEARANCE, BODY FLUID HAZY (CLEAR); ASCITES FL COLOR YELLOW (COLORLESS); SOURCE, BODY FLUID ASCITES
[2023-01-05 12:50] LABS: SOURCE, BODY FLUID ALBUMIN ASCITES
[2023-01-05 12:57] LABS: SOURCE, BODY FLUID TOT PROTEIN ASCITES; TOTAL PROTEIN, BODY FLUID 2.6 G/DL (NOT ESTABLISHED)
== END ==
LOC: M IRPRO 09:52
PROVIDERS: ATTEND Internal Medicine Gastroenterology
DX: R18.8 Other ascites (principal); D50.0 Iron deficiency anemia secondary to blood loss (chronic); K74.60 Unspecified cirrhosis of liver
CPT/HCPCS: 82042; 84157; 89051; 96365; P9047

== ENCOUNTER 2023-01-13 20:31 | Inpatient (IN) | payer MEDICARE, BC, OTHER ==
[~2023-01-13] VITALS: Ht 157.5 cm; Wt 73.1 kg
[~2023-01-13 20:31] MED LIST changes: -K-TA10TA2 PO; +POTA-165 PO; +SENN-111 PO; -SENN18TA PO
[2023-01-13] MEDS: METOPROLOL 5 MG/5 ML VIAL IV SCH ×3 (20:48→20:55)
[2023-01-13] MEDS ORDERED: NS 500 ML IV ONE (21:00)
[2023-01-13 21:03] LABS: BASO % 0.6 % (0.0-1.0); EOS % 0.4 % (0.0-3.0); LYMPH # 1.1 10^3/uL (1.5-5.0); LYMPH % 21.9 % (24.0-44.0); MEAN CORPUSCULAR HEMOGLOBIN 18.5 pg (27.0-33.0); MEAN CORPUSCULAR HGB CONC 27.1 g/dl (32.0-36.5); MEAN CORPUSCULAR VOLUME 68.2 fl (80.0-96.0); MONO # 0.4 10^3/uL (0.0-0.8); MONO % 8.5 % (2.0-8.0); NEUTROPHILS # 3.5 10^3/uL (1.5-8.5); NEUTROPHILS % 68.4 % (36.0-66.0); PLATELET COUNT, AUTOMATED 168 10^3/uL (150-450); RED BLOOD COUNT 3.52 10^6/uL (4.00-5.40); WHITE BLOOD COUNT 5.2 10^3/uL (4.0-10.0)
[2023-01-13 21:10] LABS: HEMOGLOBIN 6.5 g/dl (12.0-15.5)
[2023-01-13 21:19] LABS: INR 1.47; PROTHROMBIN TIME 18.1 SECONDS (12.5-14.5)
[2023-01-13 21:32] LABS: AMYLASE 37 U/L (30-118)
[2023-01-13 21:34] LABS: ALBUMIN 3.2 G/DL (3.2-5.2); ALKALINE PHOSPHATASE 80 U/L (46-116); ALT/SGPT < 9 U/L (7.0-40); AST/SGOT 8 U/L (<34); BILIRUBIN,DIRECT 0.2 MG/DL (<0.4); BILIRUBIN,TOTAL 0.5 MG/DL (0.3-1.2); BLOOD UREA NITROGEN 20 MG/DL (9-23); CALCIUM LEVEL 7.8 MG/DL (8.3-10.6); CARBON DIOXIDE LEVEL 22 MMOL/L (20-31); CHLORIDE LEVEL 105 MMOL/L (98-107); CPK CREATINE PHOSPHOKINASE 38 U/L (34-145); CREATININE FOR GFR 1.11 MG/DL (0.55-1.30); GLUCOSE, FASTING 193 MG/DL (74-106); MB/CK RELATIVE INDEX 2.63 (< OR =4); SODIUM LEVEL 137 MMOL/L (136-145); TOTAL PROTEIN 6.2 G/DL (5.7-8.2)
[2023-01-13 21:42] LABS: RSV AMPLIFICATION NEGATIVE (NEGATIVE)
[2023-01-13 22:14] LABS: C REACTIVE PROTEIN QUANTITATIV < 0.40 MG/DL (<1.0)
[2023-01-13 23:29] VITALS: BP 104/54; TEMP 98.2; O2SAT 99
[2023-01-13 23:53] VITALS: BP 101/53; TEMP 98.1; O2SAT 99
[2023-01-14] VITALS (13 sets, daily range): BP systolic 98–130; BP diastolic 51–76; TEMP 97.3–98.4; O2SAT 96–100
[2023-01-14] MEDS ORDERED: ROPI1TAB3 PO (02:03)
[2023-01-14] MEDS ORDERED: MAGN400T2 PO (02:03)
[2023-01-14] MEDS ORDERED: OXYC-517 PO (02:03)
[2023-01-14] MEDS ORDERED: BUSP1TAB PO (02:03)
[2023-01-14] MEDS ORDERED: DULO1CAP5 PO (02:03)
[2023-01-14] MEDS ORDERED: SPIR50TA4 PO (02:03)
[2023-01-14] MEDS ORDERED: HOME MED LIST COMPLETE! XX SCH (02:05)
[2023-01-14] MEDS ORDERED: ONDANSETRON 4MG 2ML VIAL IV ONE (02:10)
[2023-01-14] MEDS ORDERED: DEXTROSE 50% 50ML SYRINGE IV PRN (02:50)
[2023-01-14] MEDS ORDERED: GLUCOSE 4GM CHEW TABLET PO PRN (02:50)
[2023-01-14] MEDS ORDERED: PANTOPRAZOLE 40MG VIAL IV ONE (02:50)
[2023-01-14] MEDS ORDERED: HYDROMORPHONE HCL 0.5 MG/ 0.5 ML SYRINGE IV PRN (02:50)
[2023-01-14] MEDS ORDERED: GLUCAGON INJ 1MG VIAL SC PRN (02:50)
[2023-01-14] MEDS ORDERED: PILL CUTTER 1 EACH XX PRN (03:40)
[2023-01-14] MEDS: INSULIN LISPRO (NovoLOG) PER UNIT SC SCH ×4 (05:51→23:45)
[2023-01-14] MEDS: MIDODRINE 5 MG TAB PO SCH ×3 (08:00→17:21)
[2023-01-14 08:29] LABS: HEMATOCRIT 24.3 % (36.0-47.0); HEMOGLOBIN 7.1 g/dl (12.0-15.5)
[2023-01-14] MEDS ORDERED: ACETAMINOPHEN TAB 650MG DOSE (2X325MG) PO ONE (08:55)
[2023-01-14 08:59] LABS: CALCIUM LEVEL 7.6 MG/DL (8.3-10.6); CREATININE FOR GFR 1.09 MG/DL (0.55-1.30); POTASSIUM SERUM 4.1 MMOL/L (3.5-5.1)
[2023-01-14 09:02] LABS: FOLATE 6.09 NG/ML (>5.4)
[2023-01-14] MEDS: SPIRONOLACTONE 50 MG TAB PO SCH (09:33)
[2023-01-14] MEDS: SUCRALFATE 1 GM TAB PO SCH ×4 (09:33→20:05)
[2023-01-14] MEDS: PROPRANOLOL 20 MG TAB PO SCH (09:33)
[2023-01-14] MEDS: busPIRone 5 MG TAB PO SCH ×2 (09:33→20:05)
[2023-01-14] MEDS: FUROSEMIDE 40 MG TAB PO SCH (09:33)
[2023-01-14] MEDS: PANTOPRAZOLE 40MG VIAL IV SCH ×2 (09:34→20:09)
[2023-01-14] MEDS: cefTRIAXone SOD 2 GM in D5W MINI-BAG PLUS 50 ML IV SCH (09:34)
[2023-01-14 12:12] LABS: APPEARANCE, BODY FLUID HAZY (CLEAR); ASCITES FL COLOR PALE YELLOW (COLORLESS); SOURCE, BODY FLUID ASCITES
[2023-01-14 12:33] LABS: SOURCE, BODY FLUID ALBUMIN ASCITES
[2023-01-14 12:38] LABS: SOURCE, BODY FLUID GLUCOSE ASCITES
[2023-01-14 12:40] LABS: SOURCE, BODY FLUID TOT PROTEIN ASCITES; TOTAL PROTEIN, BODY FLUID 2.3 G/DL (NOT ESTABLISHED)
[2023-01-14] MEDS: DAPAGLIFLOZIN PROPANEDIOL 10MG TABLET (FARXIGA) PO SCH (12:48)
[2023-01-14] MEDS: LIDOCAINE 5% (LIDODERM) PATCH TD SCH (12:53)
[2023-01-14] MEDS: DULoxetine 30MG CAPSULE (CYMBALTA) PO SCH ×2 (12:53→20:05)
[2023-01-14] MEDS ORDERED: IRON SUCROSE 200 MG in NS 100 ML OVER 1 HR IV ONE (15:00)
[2023-01-14] MEDS ORDERED: IRON SUCROSE 100MG 5ML VIAL IV ONE (15:00)
[2023-01-14 18:32] LABS: HEMATOCRIT 27.4 % (36.0-47.0); HEMOGLOBIN 8.1 g/dl (12.0-15.5)
[2023-01-14] MEDS ORDERED: rOPINIRole 1MG TAB PO SCH (21:00)
[2023-01-14] MEDS ORDERED: ATORVASTATIN 10 MG TAB PO SCH (21:00)
[2023-01-14] MEDS ORDERED: MONTELUKAST 10 MG TAB PO SCH (21:00)
[2023-01-15] VITALS: BP 104/55; TEMP 97.4; O2SAT 97
[2023-01-15 00:08] LABS: HEMATOCRIT 27.4 % (36.0-47.0)
[2023-01-15 04:00] VITALS: BP 118/54; TEMP 97.4; O2SAT 96
[2023-01-15 04:03] LABS: BASO % 0.5 % (0.0-1.0); EOS # 0.1 10^3/uL (0.0-0.5); EOS % 1.6 % (0.0-3.0); HEMATOCRIT 31.9 % (36.0-47.0); HEMOGLOBIN 9.1 g/dl (12.0-15.5); LYMPH # 1.1 10^3/uL (1.5-5.0); LYMPH % 29.1 % (24.0-44.0); MEAN CORPUSCULAR HEMOGLOBIN 20.7 pg (27.0-33.0); MEAN CORPUSCULAR HGB CONC 28.5 g/dl (32.0-36.5); MEAN CORPUSCULAR VOLUME 72.5 fl (80.0-96.0); MONO # 0.3 10^3/uL (0.0-0.8); MONO % 9.2 % (2.0-8.0); NEUTROPHILS # 2.2 10^3/uL (1.5-8.5); NEUTROPHILS % 59.3 % (36.0-66.0); PLATELET COUNT, AUTOMATED 126 10^3/uL (150-450); WHITE BLOOD COUNT 3.7 10^3/uL (4.0-10.0)
[2023-01-15 04:21] LABS: CALCIUM LEVEL 7.9 MG/DL (8.3-10.6); CREATININE FOR GFR 1.09 MG/DL (0.55-1.30); MAGNESIUM LEVEL 1.9 MG/DL (1.8-2.4); POTASSIUM SERUM 3.6 MMOL/L (3.5-5.1)
[2023-01-15] MEDS: INSULIN LISPRO (NovoLOG) PER UNIT SC SCH ×3 (05:12→17:21)
[2023-01-15 07:10] LABS: ALBUMIN 2.9 G/DL (3.2-5.2)
[2023-01-15 07:49] VITALS: BP 111/51; TEMP 97.2; O2SAT 98
[2023-01-15] MEDS: MIDODRINE 5 MG TAB PO SCH ×4 (08:00→17:05)
[2023-01-15] MEDS: cefTRIAXone SOD 2 GM in D5W MINI-BAG PLUS 50 ML IV SCH (08:47)
[2023-01-15] MEDS: LIDOCAINE 5% (LIDODERM) PATCH TD SCH (08:47)
[2023-01-15] MEDS: PANTOPRAZOLE 40MG VIAL IV SCH (08:47)
[2023-01-15] MEDS: LEVEMIR (INSULIN DETEMIR) 1 UNITS/0.01ML SC SCH ×2 (09:00→13:58)
[2023-01-15] MEDS ORDERED: E-Z-GAS II EFFERVESCENT PACKET (SODIUM BICARB./CITRIC ACID/SIMETHICONE) As Ordered ONE (10:04)
[2023-01-15] MEDS ORDERED: E-Z-PAQUE 96% w/w SUSP 176GM BTL As Ordered ONE (10:04)
[2023-01-15] MEDS ORDERED: E-Z-HD 98% w/w 340GM SUSP BTL As Ordered ONE (10:05)
[2023-01-15] MEDS ORDERED: SUCR1TAB56 PO (10:38)
[2023-01-15 11:20] VITALS: BP 109/54; TEMP 96.9; O2SAT 99
[2023-01-15 12:37] VITALS: BP 110/62
[2023-01-15] MEDS: FUROSEMIDE 40 MG TAB PO SCH (12:37)
[2023-01-15] MEDS: PROPRANOLOL 20 MG TAB PO SCH (12:37)
[2023-01-15] MEDS: DULoxetine 30MG CAPSULE (CYMBALTA) PO SCH (12:37)
[2023-01-15] MEDS: DAPAGLIFLOZIN PROPANEDIOL 10MG TABLET (FARXIGA) PO SCH (12:37)
[2023-01-15] MEDS: SUCRALFATE 1 GM TAB PO SCH ×3 (12:37→17:05)
[2023-01-15] MEDS: SPIRONOLACTONE 50 MG TAB PO SCH (12:38)
[2023-01-15] MEDS: busPIRone 5 MG TAB PO SCH (12:38)
[2023-01-15] MEDS ORDERED: ISOVUE-370 76% 100ML VIAL As Ordered ONE (13:50)
[2023-01-15 15:12] VITALS: BP 121/59; TEMP 97.1; O2SAT 98
[2023-01-15] MEDS ORDERED: CIPR500T39 PO (16:18)
== END 2023-01-15 18:43 | disposition home or self-care (01) | DRG 377 ==
LOC: EDBD 20:31 → M ED 20:31 → M ED INP 01-14 02:46 → M PCU 01-14 03:53
PROVIDERS: ADMIT Internal Medicine; ATTEND Internal Medicine
PROC: 30233N1 Transfusion of Nonautologous Red Blood Cells into Peripheral Vein, Percutaneous Approach (ICD-10-PCS; 2023-01-13)
PROC: 0W9G3ZX Drainage of Peritoneal Cavity, Percutaneous Approach, Diagnostic (ICD-10-PCS; principal; 2023-01-14 15:00)
DX: K28.4 Chronic or unspecified gastrojejunal ulcer with hemorrhage (principal); I21.A1 Myocardial infarction type 2; D62 Acute posthemorrhagic anemia; R18.8 Other ascites; E87.20 Acidosis, unspecified; K74.60 Unspecified cirrhosis of liver; E11.9 Type 2 diabetes mellitus without complications; I95.9 Hypotension, unspecified; I48.0 Paroxysmal atrial fibrillation; Z90.49 Acquired absence of other specified parts of digestive tract; Z79.01 Long term (current) use of anticoagulants; Z79.4 Long term (current) use of insulin; Z79.899 Other long term (current) drug therapy; Z88.1 Allergy status to other antibiotic agents; Z91.048 Other nonmedicinal substance allergy status; K75.81 Nonalcoholic steatohepatitis (NASH); F39 Unspecified mood [affective] disorder; R13.10 Dysphagia, unspecified; J45.909 Unspecified asthma, uncomplicated; G25.81 Restless legs syndrome

== ENCOUNTER → 2023-02-02 | Outpatient (CLI) | payer MEDICARE, BC, OTHER ==
[~2023-02-02] MED LIST changes: +BUSP1TAB PO; +CIPR500T39 PO; +MAGN400T2 PO; +OXYC-517 PO; -ROPI0.5T3 PO; +ROPI0.5T33 PO; +ROPI1TAB73 PO; +SPIR50TA4 PO; +SUCR1TAB56 PO
[2023-02-02 12:44] LABS: BASO % 0.6 % (0.0-1.0); EOS # 0.1 10^3/uL (0.0-0.5); HEMATOCRIT 34.3 % (36.0-47.0); HEMOGLOBIN 9.8 g/dl (12.0-15.5); LYMPH % 28.4 % (24.0-44.0); MEAN CORPUSCULAR HEMOGLOBIN 21.9 pg (27.0-33.0); MEAN CORPUSCULAR HGB CONC 28.6 g/dl (32.0-36.5); MEAN CORPUSCULAR VOLUME 76.7 fl (80.0-96.0); MONO # 0.3 10^3/uL (0.0-0.8); MONO % 8.8 % (2.0-8.0); NEUTROPHILS # 2.1 10^3/uL (1.5-8.5); NEUTROPHILS % 59.9 % (36.0-66.0); PLATELET COUNT, AUTOMATED 157 10^3/uL (150-450); RED BLOOD COUNT 4.47 10^6/uL (4.00-5.40); WHITE BLOOD COUNT 3.4 10^3/uL (4.0-10.0)
[2023-02-02 13:02] LABS: ALBUMIN 3.2 G/DL (3.2-5.2); BILIRUBIN,TOTAL 0.8 MG/DL (0.3-1.2); CALCIUM LEVEL 9.3 MG/DL (8.3-10.6); GLOMERULAR FILTRATION RATE 56.4 (>32); POTASSIUM SERUM 4.4 MMOL/L (3.5-5.1); TOTAL PROTEIN 6.3 G/DL (5.7-8.2)
== END ==
LOC: M LAB 12:14
PROVIDERS: ATTEND Family Medicine
DX: K65.2 Spontaneous bacterial peritonitis (principal); E11.69 Type 2 diabetes mellitus with other specified complication

== ENCOUNTER → 2023-02-22 | Outpatient (CLI) | payer MEDICARE, BC, OTHER ==
[2023-02-22 09:58] LABS: BASO % 0.5 % (0.0-1.0); EOS # 0.1 10^3/uL (0.0-0.5); EOS % 1.2 % (0.0-3.0); HEMATOCRIT 34.6 % (36.0-47.0); HEMOGLOBIN 10.1 g/dl (12.0-15.5); LYMPH # 0.9 10^3/uL (1.5-5.0); LYMPH % 20.9 % (24.0-44.0); MEAN CORPUSCULAR HEMOGLOBIN 22.4 pg (27.0-33.0); MEAN CORPUSCULAR HGB CONC 29.2 g/dl (32.0-36.5); MEAN CORPUSCULAR VOLUME 76.7 fl (80.0-96.0); MONO # 0.4 10^3/uL (0.0-0.8); MONO % 8.2 % (2.0-8.0); NEUTROPHILS # 2.9 10^3/uL (1.5-8.5); PLATELET COUNT, AUTOMATED 168 10^3/uL (150-450); RED BLOOD COUNT 4.51 10^6/uL (4.00-5.40); WHITE BLOOD COUNT 4.3 10^3/uL (4.0-10.0)
[2023-02-22 10:08] LABS: HEMOGLOBIN A1c 6.2 % (4.0-6.0)
[2023-02-22 10:33] LABS: CHOLESTEROL RISK RATIO 2.24 (<5); FREE T4 0.98 NG/DL (0.89-1.76); HDL CHOLESTEROL 53.9 MG/DL (>40); LDL CHOLESTEROL 52.7 MG/DL (<100); NON-HDL-C 67.1 MG/DL; THYROID STIMULATING HORMONE 2.015 uIU/ML (0.55-4.78)
== END ==
LOC: M LAB 09:20
PROVIDERS: ATTEND Family Medicine
DX: E11.69 Type 2 diabetes mellitus with other specified complication (principal)

== ENCOUNTER → 2023-03-15 | Outpatient (CLI) | payer MEDICARE, BC, OTHER ==
[~2023-03-15] MED LIST changes: +BETA0.0543; +MECL-209 PO; -MECL1TAB31 PO; +MIRA3350 PO
== END ==
LOC: M IRPRO 10:16
PROVIDERS: ATTEND Internal Medicine Gastroenterology
DX: R18.8 Other ascites (principal); K74.60 Unspecified cirrhosis of liver
CPT/HCPCS: 76705; 96365; J1756

== ENCOUNTER → 2023-04-15 | Outpatient (CLI) | payer MEDICARE, BC, OTHER | LOC: M RAD 12:49 | PROVIDERS: ATTEND Physician Assistant | DX: M79.662 Pain in left lower leg (principal) ==

== ENCOUNTER → 2023-04-16 | Outpatient (CLI) | payer MEDICARE, BC, OTHER | LOC: M IRPRO 09:48 | PROVIDERS: ATTEND Internal Medicine Gastroenterology | DX: R18.8 Other ascites (principal); K74.60 Unspecified cirrhosis of liver ==

== ENCOUNTER → 2023-05-17 | Outpatient (CLI) | payer MEDICARE, BC, OTHER | LOC: M IRPRO 10:09 | PROVIDERS: ATTEND Internal Medicine Gastroenterology | DX: R18.8 Other ascites (principal); K74.60 Unspecified cirrhosis of liver ==

== ENCOUNTER → 2023-06-08 | Outpatient (CLI) | payer MEDICARE, BC, OTHER ==
[2023-06-08 10:26] LABS: ALBUMIN 3.2 G/DL (3.2-5.2); BILIRUBIN,DIRECT 0.3 MG/DL (<0.4); BILIRUBIN,TOTAL 0.7 MG/DL (0.3-1.2); MAGNESIUM LEVEL 1.6 MG/DL (1.8-2.4); TOTAL PROTEIN 6.4 G/DL (5.7-8.2)
[2023-06-08 10:28] LABS: THYROID STIMULATING HORMONE 2.743 uIU/ML (0.55-4.78)
== END ==
LOC: M LAB 09:10
PROVIDERS: ATTEND Physician Assistant
DX: I48.0 Paroxysmal atrial fibrillation (principal)

== ENCOUNTER → 2023-06-08 | Outpatient (CLI) | payer MEDICARE, BC, OTHER ==
[2023-06-08 09:56] LABS: BASO % 0.6 % (0.0-1.0); EOS % 1.1 % (0.0-3.0); HEMATOCRIT 36.4 % (36.0-47.0); HEMOGLOBIN 11.1 g/dl (12.0-15.5); LYMPH # 0.7 10^3/uL (1.5-5.0); LYMPH % 18.4 % (24.0-44.0); MEAN CORPUSCULAR HEMOGLOBIN 26.1 pg (27.0-33.0); MEAN CORPUSCULAR HGB CONC 30.5 g/dl (32.0-36.5); MEAN CORPUSCULAR VOLUME 85.4 fl (80.0-96.0); MONO # 0.3 10^3/uL (0.0-0.8); MONO % 8.5 % (2.0-8.0); NEUTROPHILS # 2.5 10^3/uL (1.5-8.5); NEUTROPHILS % 71.1 % (36.0-66.0); PLATELET COUNT, AUTOMATED 152 10^3/uL (150-450); RED BLOOD COUNT 4.26 10^6/uL (4.00-5.40); WHITE BLOOD COUNT 3.5 10^3/uL (4.0-10.0)
[2023-06-08 10:28] LABS: ALBUMIN 3.2 G/DL (3.2-5.2); BILIRUBIN,TOTAL 0.7 MG/DL (0.3-1.2); CALCIUM LEVEL 8.6 MG/DL (8.3-10.6); CREATININE FOR GFR 1.11 MG/DL (0.55-1.30); POTASSIUM SERUM 3.3 MMOL/L (3.5-5.1); TOTAL PROTEIN 6.5 G/DL (5.7-8.2)
[2023-06-08 10:29] LABS: FERRITIN 16.4 NG/ML (7.3-270.7); FOLATE 8.3 NG/ML (>5.4); THYROID STIMULATING HORMONE 2.769 uIU/ML (0.55-4.78)
[2023-06-08 10:30] LABS: FREE T4 0.97 NG/DL (0.89-1.76)
[2023-06-08 11:14] LABS: HEMOGLOBIN A1c 6.1 % (4.0-6.0)
== END ==
LOC: M LAB 09:13
PROVIDERS: ATTEND Nurse Practitioner Adult Health
DX: K74.60 Unspecified cirrhosis of liver (principal); E11.69 Type 2 diabetes mellitus with other specified complication; I50.32 Chronic diastolic (congestive) heart failure; F41.9 Anxiety disorder, unspecified; I11.0 Hypertensive heart disease with heart failure; I48.0 Paroxysmal atrial fibrillation

== ENCOUNTER → 2023-06-15 | Outpatient (CLI) | payer MEDICARE, BC, OTHER ==
[2023-06-15 16:16] VITALS: BP 132/68; TEMP 97.6; O2SAT 97
[2023-06-15 16:22] VITALS: BP 126/64; TEMP 97; O2SAT 97
[2023-06-15 16:25] VITALS: BP 135/63; TEMP 97.6; O2SAT 96
[2023-06-15 16:31] VITALS: BP 126/64; TEMP 97.4; O2SAT 96
[2023-06-15 16:35] VITALS: BP 132/68; O2SAT 96
[2023-06-15 16:46] LABS: APPEARANCE, BODY FLUID HAZY (CLEAR); ASCITES FL COLOR YELLOW (COLORLESS); SOURCE, BODY FLUID ASCITES
[2023-06-15 17:33] LABS: SOURCE, BODY FLUID ALBUMIN ASCITES
[2023-06-15 17:40] LABS: SOURCE, BODY FLUID TOT PROTEIN ASCITES; TOTAL PROTEIN, BODY FLUID 2.2 G/DL (NOT ESTABLISHED)
== END ==
LOC: M IRPRO 14:53
PROVIDERS: ATTEND Internal Medicine Gastroenterology
DX: R18.8 Other ascites (principal); K74.60 Unspecified cirrhosis of liver
CPT/HCPCS: 49083; 82042; 84157; 89051; 96365; P9047

== ENCOUNTER → 2023-07-08 | Outpatient (REF) | payer MEDICARE, BC, OTHER ==
[~2023-07-08] MED LIST changes: +ALDA25TA2 PO; +DIGO0.253 PO; +FURO20TA2 PO; +MIDO5TA PO
[2023-07-08 13:24] LABS: CALCIUM LEVEL 8.7 MG/DL (8.3-10.6); CREATININE FOR GFR 1.03 MG/DL (0.55-1.30); GLOMERULAR FILTRATION RATE 54.5 (>32); POTASSIUM SERUM 3.4 MMOL/L (3.5-5.1)
== END ==
LOC: M LAB REF 12:32
PROVIDERS: ATTEND Family Medicine
DX: I35.2 Nonrheumatic aortic (valve) stenosis with insufficiency (principal)

== ENCOUNTER 2023-07-12 08:09 | Emergency (ER) | payer MEDICARE, BC, OTHER ==
[~2023-07-12] VITALS: Ht 157.5 cm; Wt 73.6 kg
[2023-07-12] MEDS ORDERED: FURO40TA2 (08:38)
[2023-07-12 08:39] LABS: BASO % 0.6 % (0.0-1.0); EOS % 1.2 % (0.0-3.0); HEMATOCRIT 35.2 % (36.0-47.0); HEMOGLOBIN 10.8 g/dl (12.0-15.5); LYMPH # 0.7 10^3/uL (1.5-5.0); LYMPH % 20.5 % (24.0-44.0); MEAN CORPUSCULAR HEMOGLOBIN 25.4 pg (27.0-33.0); MEAN CORPUSCULAR HGB CONC 30.7 g/dl (32.0-36.5); MEAN CORPUSCULAR VOLUME 82.6 fl (80.0-96.0); MONO # 0.3 10^3/uL (0.0-0.8); MONO % 9.9 % (2.0-8.0); NEUTROPHILS # 2.3 10^3/uL (1.5-8.5); NEUTROPHILS % 67.5 % (36.0-66.0); PLATELET COUNT, AUTOMATED 129 10^3/uL (150-450); RED BLOOD COUNT 4.26 10^6/uL (4.00-5.40); WHITE BLOOD COUNT 3.4 10^3/uL (4.0-10.0)
[2023-07-12] MEDS ORDERED: DIGOXIN 0.125 MG TAB PO ONE (08:50)
[2023-07-12] MEDS ORDERED: FUROSEMIDE 40 MG TAB PO ONE (08:50)
[2023-07-12] MEDS ORDERED: APIXABAN 5 MG TAB (ELIQUIS) PO ONE (08:50)
[2023-07-12 08:58] LABS: CK-MB VALUE MASS < 1.0 NG/ML (<3.6)
[2023-07-12 09:00] LABS: BLOOD UREA NITROGEN 14 MG/DL (9-23); CALCIUM LEVEL 8.4 MG/DL (8.3-10.6); CARBON DIOXIDE LEVEL 26 MMOL/L (20-31); CHLORIDE LEVEL 106 MMOL/L (98-107); CPK CREATINE PHOSPHOKINASE 48 U/L (34-145); CREATININE FOR GFR 0.99 MG/DL (0.55-1.30); GLUCOSE, FASTING 158 MG/DL (74-106); MB/CK RELATIVE INDEX 2.08 (< OR =4); POTASSIUM SERUM 3.2 MMOL/L (3.5-5.1); SODIUM LEVEL 141 MMOL/L (136-145)
[2023-07-12] MEDS ORDERED: FLECAINIDE 50MG TABLET PO SCH (09:00)
[2023-07-12] MEDS ORDERED: SPIRONOLACTONE 25 MG TAB PO SCH (09:00)
[2023-07-12 09:23] LABS: INR 1.68; PARTIAL THROMBOPLASTIN TIME 29.9 SECONDS (24.8-34.2); PROTHROMBIN TIME 19.2 SECONDS (12.5-14.5)
[2023-07-12 09:26] LABS: DIGOXIN LEVEL 0.5 NG/ML (0.8-2.0)
[2023-07-12 09:27] LABS: RSV AMPLIFICATION NEGATIVE (NEGATIVE)
[2023-07-12 10:18] LABS: CPK CREATINE PHOSPHOKINASE 55 U/L (34-145)
[2023-07-12 10:20] LABS: CK-MB VALUE MASS < 1.0 NG/ML (<3.6); MB/CK RELATIVE INDEX 1.81 (< OR =4)
[2023-07-12] MEDS ORDERED: POTASSIUM CHLORIDE 10MEQ SR TABLET PO ONE (12:25)
[2023-07-12] MEDS ORDERED: DIGO0.253 PO (13:08)
[2023-07-12] MEDS ORDERED: FLEC50HA PO (13:08)
[2023-07-12 14:08] VITALS: BP 126/53; TEMP 97.5; O2SAT 97
== END 2023-07-12 14:10 | disposition home or self-care (01) ==
LOC: M ED 08:09 → EDBD 08:09 → M ED 14:10
DX: I48.0 Paroxysmal atrial fibrillation (principal); I25.10 Atherosclerotic heart disease of native coronary artery without angina pectoris; I50.9 Heart failure, unspecified; E11.9 Type 2 diabetes mellitus without complications; Z98.61 Coronary angioplasty status; Z79.4 Long term (current) use of insulin; Z79.01 Long term (current) use of anticoagulants; Z79.899 Other long term (current) drug therapy; Z91.89 Other specified personal risk factors, not elsewhere classified; Z88.8 Allergy status to other drugs, medicaments and biological substances

== ENCOUNTER → 2023-07-16 | Outpatient (CLI) | payer MEDICARE, BC, OTHER ==
[~2023-07-16] MED LIST changes: +FURO40TA2
[2023-07-16 10:35] VITALS: TEMP 97.5
[2023-07-16 11:28] VITALS: BP 133/60; O2SAT 97
[2023-07-16 11:47] VITALS: BP 122/56; O2SAT 97
[2023-07-16 12:00] VITALS: BP 129/61; O2SAT 95
== END ==
LOC: M IRPRO 10:13
PROVIDERS: ATTEND Internal Medicine Gastroenterology
DX: R18.8 Other ascites (principal); K74.60 Unspecified cirrhosis of liver
CPT/HCPCS: 49083; 96365; P9047

== ENCOUNTER 2023-07-28 11:17 | Emergency (ER) | payer MEDICARE, BC, OTHER ==
[~2023-07-28] VITALS: Ht 157.5 cm; Wt 69.5 kg
[2023-07-28] MEDS ORDERED: ONDA-83 PO (14:44)
[2023-07-28 15:24] LABS: BASO % 0.3 % (0.0-1.0); EOS % 1.2 % (0.0-3.0); HEMATOCRIT 34.2 % (36.0-47.0); HEMOGLOBIN 10.4 g/dl (12.0-15.5); LYMPH # 0.9 10^3/uL (1.5-5.0); LYMPH % 26.8 % (24.0-44.0); MEAN CORPUSCULAR HEMOGLOBIN 24.9 pg (27.0-33.0); MEAN CORPUSCULAR HGB CONC 30.4 g/dl (32.0-36.5); MEAN CORPUSCULAR VOLUME 81.8 fl (80.0-96.0); MONO # 0.4 10^3/uL (0.0-0.8); MONO % 11.2 % (2.0-8.0); NEUTROPHILS # 2.1 10^3/uL (1.5-8.5); NEUTROPHILS % 60.2 % (36.0-66.0); PLATELET COUNT, AUTOMATED 146 10^3/uL (150-450); RED BLOOD COUNT 4.18 10^6/uL (4.00-5.40); WHITE BLOOD COUNT 3.4 10^3/uL (4.0-10.0)
[2023-07-28 15:55] LABS: LIPASE 19 U/L (12-53)
[2023-07-28 15:57] LABS: ALBUMIN 3.3 G/DL (3.2-5.2); ALKALINE PHOSPHATASE 90 U/L (46-116); ALT/SGPT 17 U/L (7.0-40); AST/SGOT 15 U/L (<34); BILIRUBIN,DIRECT 0.3 MG/DL (<0.4); BILIRUBIN,TOTAL 0.7 MG/DL (0.3-1.2); BLOOD UREA NITROGEN 14 MG/DL (9-23); CALCIUM LEVEL 8.1 MG/DL (8.3-10.6); CARBON DIOXIDE LEVEL 28 MMOL/L (20-31); CHLORIDE LEVEL 106 MMOL/L (98-107); CREATININE FOR GFR 0.92 MG/DL (0.55-1.30); GLOMERULAR FILTRATION RATE > 60.0 (>32); GLUCOSE, FASTING 91 MG/DL (74-106); POTASSIUM SERUM 3.2 MMOL/L (3.5-5.1); SODIUM LEVEL 140 MMOL/L (136-145); TOTAL PROTEIN 6.3 G/DL (5.7-8.2)
[2023-07-28 16:01] LABS: DIGOXIN LEVEL 2.5 NG/ML (0.8-2.0)
[2023-07-28 16:43] VITALS: TEMP 98
[2023-07-28 18:45] VITALS: BP 130/61; O2SAT 96
[2023-07-28] MEDS ORDERED: NS 500 ML IV ONE (19:30)
[2023-07-28] MEDS ORDERED: ONDANSETRON 4MG 2ML VIAL IV ONE (19:30)
[2023-07-28] MEDS ORDERED: POTASSIUM CHLORIDE 10% LIQ 20MEQ/15ML UDC PO ONE (19:50)
[2023-07-28 20:33] LABS: VENOUS BASE EXCESS -2.5 (-2.0-2.0); VENOUS HCO3 22.5 MMOL/L (23.0-27.0); VENOUS O2 SATURATION 77.5 % (60.0-80.0); VENOUS PARTIAL PRESSURE CO2 39.3 mmHg (38.0-50.0); VENOUS PARTIAL PRESSURE O2 44.4 mmHg (30.0-50.0); VENOUS PH 7.375 UNITS (7.330-7.430); VENOUS TOTAL CO2 23.7 MMOL/L (24.0-28.0)
[2023-07-28 20:38] LABS: ETHYL ALCOHOL (ETHANOL) < 0.003 % (0.000-0.010)
[2023-07-28 20:39] LABS: MAGNESIUM LEVEL 1.5 MG/DL (1.8-2.4); PHOSPHORUS LEVEL 3.6 MG/DL (2.4-5.1); SALICYLATE LEVEL < 3.0 MG/DL (<30)
[2023-07-28 20:43] LABS: THYROID STIMULATING HORMONE 1.628 uIU/ML (0.55-4.78)
[2023-07-28 20:53] LABS: OSMOLALITY SERUM 288 MOSM/KG (280-301)
[2023-07-28] MEDS ORDERED: MAG SULF 1GM/100ML (MAG RUN) 1 GM in IV 1 EA IV ONE (22:05)
[2023-07-28] MEDS ORDERED: ISOVUE-370 76% 100ML VIAL As Ordered ONE (22:19)
[2023-07-28] MEDS ORDERED: DIGO0.123 PO (23:57)
[2023-07-28] MEDS ORDERED: ONDA4TAB6 PO (23:58)
[2023-07-29 00:25] LABS: RSV AMPLIFICATION NEGATIVE (NEGATIVE)
== END 2023-07-29 00:16 | disposition home or self-care (01) ==
LOC: M ED 11:17
DX: T46.0X1A Poisoning by cardiac-stimulant glycosides and drugs of similar action, accidental (unintentional), initial encounter (principal); K74.60 Unspecified cirrhosis of liver; E87.6 Hypokalemia; E83.42 Hypomagnesemia; Z88.8 Allergy status to other drugs, medicaments and biological substances; I48.91 Unspecified atrial fibrillation; R18.8 Other ascites; M54.9 Dorsalgia, unspecified; F41.9 Anxiety disorder, unspecified; F32.A Depression, unspecified; Z79.4 Long term (current) use of insulin; Z79.899 Other long term (current) drug therapy; Z79.01 Long term (current) use of anticoagulants
CPT/HCPCS: 71045; 74177; 80048; 80076; 80143; 80162; 82077; 82140; 82803; 83605; 83690; 83735; 83930; 84100; 84443; 85025; 86850; 86900; 86901; 87040; 87631; 93005; 96365; 96375; 99284; J2405; J3475; Q9967

== ENCOUNTER → 2023-08-16 | Outpatient (CLI) | payer MEDICARE, BC, OTHER ==
[~2023-08-16] MED LIST changes: +ONDA-83 PO; +ONDA4TAB6 PO
[2023-08-16 10:51] VITALS: BP 105/56; O2SAT 96
[2023-08-16 10:56] VITALS: BP 131/53; O2SAT 96
[2023-08-16 11:03] VITALS: BP 129/55; O2SAT 97
== END ==
LOC: M IRPRO 10:23
PROVIDERS: ATTEND Internal Medicine Gastroenterology
DX: R18.8 Other ascites (principal); K74.60 Unspecified cirrhosis of liver
CPT/HCPCS: 49083; 96374; P9047

== ENCOUNTER 2023-08-22 23:26 | Emergency (ER) | payer MEDICARE, BC, OTHER ==
[~2023-08-22] VITALS: Ht 157.5 cm; Wt 153.0 kg
[2023-08-22] MEDS ORDERED: DOXY100C3 (23:52)
[2023-08-22] MEDS ORDERED: PRED20TA (23:52)
[2023-08-23 00:17] LABS: BASO % 0.2 % (0.0-1.0); HEMATOCRIT 35.4 % (36.0-47.0); HEMOGLOBIN 10.9 g/dl (12.0-15.5); LYMPH # 0.7 10^3/uL (1.5-5.0); MEAN CORPUSCULAR HEMOGLOBIN 24.9 pg (27.0-33.0); MEAN CORPUSCULAR HGB CONC 30.8 g/dl (32.0-36.5); MONO # 0.4 10^3/uL (0.0-0.8); MONO % 6.9 % (2.0-8.0); NEUTROPHILS # 4.6 10^3/uL (1.5-8.5); NEUTROPHILS % 80.7 % (36.0-66.0); PLATELET COUNT, AUTOMATED 156 10^3/uL (150-450); RED BLOOD COUNT 4.37 10^6/uL (4.00-5.40); WHITE BLOOD COUNT 5.7 10^3/uL (4.0-10.0)
[2023-08-23 00:29] LABS: INR 1.45; PROTHROMBIN TIME 17.2 SECONDS (12.5-14.5)
[2023-08-23 00:30] LABS: PARTIAL THROMBOPLASTIN TIME 30.2 SECONDS (24.8-34.2)
[2023-08-23 00:39] LABS: CALCIUM LEVEL 7.7 MG/DL (8.3-10.6); GLOMERULAR FILTRATION RATE 56.4 (>32); POTASSIUM SERUM 3.5 MMOL/L (3.5-5.1)
[2023-08-23] MEDS: LIDOCAINE 1% MDV 20ML VIAL SC ONE (02:30)
[2023-08-23] MEDS: BOOSTRIX VACCINE (TETANUS/DIPHTH/ACEL. PERTUSSIS) 0.5ML SYR IM ONE (02:34)
[2023-08-23 04:11] VITALS: BP 135/60; TEMP 97.3; O2SAT 99
[2023-09-09] MEDS ORDERED: OXYC-517 (14:47)
[2023-09-09] MEDS ORDERED: FURO40TA2 PO (14:49)
[2023-09-09] MEDS ORDERED: SPIR-10 PO (14:49)
== END 2023-08-23 04:15 | disposition home or self-care (01) ==
LOC: M ED 23:26
DX: S61.412A Laceration without foreign body of left hand, initial encounter (principal); S09.90XA Unspecified injury of head, initial encounter; W01.0XXA Fall on same level from slipping, tripping and stumbling without subsequent striking against object, initial encounter; Y92.012 Bathroom of single-family (private) house as the place of occurrence of the external cause; Y93.89 Activity, other specified; Y99.9 Unspecified external cause status; I48.91 Unspecified atrial fibrillation; I25.10 Atherosclerotic heart disease of native coronary artery without angina pectoris; E11.9 Type 2 diabetes mellitus without complications; Z79.4 Long term (current) use of insulin; Z79.01 Long term (current) use of anticoagulants; Z88.1 Allergy status to other antibiotic agents; Z91.048 Other nonmedicinal substance allergy status; Z79.899 Other long term (current) drug therapy; Z23 Encounter for immunization
CPT/HCPCS: 12002; 70450; 72125; 73130; 80048; 80162; 85025; 85610; 85730; 90471; 90715; 99283; G0463

== ENCOUNTER → 2023-09-09 | Outpatient (REF) | payer MEDICARE, OTHER ==
[~2023-09-09] MED LIST changes: +DOXY100C3; +OXYC-517; +PRED20TA
[2023-09-09 16:23] LABS: BASO % 0.5 % (0.0-1.0); EOS % 0.9 % (0.0-3.0); HEMATOCRIT 35.3 % (36.0-47.0); HEMOGLOBIN 10.9 g/dl (12.0-15.5); LYMPH # 0.6 10^3/uL (1.5-5.0); LYMPH % 14.3 % (24.0-44.0); MEAN CORPUSCULAR HEMOGLOBIN 26.3 pg (27.0-33.0); MEAN CORPUSCULAR HGB CONC 30.9 g/dl (32.0-36.5); MEAN CORPUSCULAR VOLUME 85.3 fl (80.0-96.0); MONO # 0.3 10^3/uL (0.0-0.8); NEUTROPHILS # 3.2 10^3/uL (1.5-8.5); NEUTROPHILS % 75.8 % (36.0-66.0); PLATELET COUNT, AUTOMATED 161 10^3/uL (150-450); RED BLOOD COUNT 4.14 10^6/uL (4.00-5.40); WHITE BLOOD COUNT 4.3 10^3/uL (4.0-10.0)
[2023-09-09 16:42] LABS: ALBUMIN 2.9 G/DL (3.2-5.2); BILIRUBIN,DIRECT 0.3 MG/DL (<0.4); BILIRUBIN,TOTAL 0.7 MG/DL (0.3-1.2); CALCIUM LEVEL 7.5 MG/DL (8.3-10.6); CREATININE FOR GFR 1.11 MG/DL (0.55-1.30); POTASSIUM SERUM 3.3 MMOL/L (3.5-5.1); TOTAL PROTEIN 6.1 G/DL (5.7-8.2)
== END ==
LOC: M LAB REF 15:26
PROVIDERS: ATTEND Internal Medicine Gastroenterology
DX: K74.60 Unspecified cirrhosis of liver (principal)

== ENCOUNTER → 2023-09-16 | Outpatient (CLI) | payer MEDICARE, BC, OTHER ==
[2023-09-16 10:45] VITALS: TEMP 98
[2023-09-16 10:58] VITALS: BP 138/63; O2SAT 97
[2023-09-16 11:07] VITALS: BP 125/56; O2SAT 97
[2023-09-16 11:15] VITALS: BP 120/58; O2SAT 98
== END ==
LOC: M IRPRO 10:24
PROVIDERS: ATTEND Internal Medicine Gastroenterology
DX: R18.8 Other ascites (principal); K74.60 Unspecified cirrhosis of liver
CPT/HCPCS: 49083; 96365; P9047

== ENCOUNTER → 2023-09-27 | Outpatient (CLI) | payer MEDICARE, BC, OTHER ==
[2023-09-27 17:24] LABS: BASO % 0.7 % (0.0-1.0); EOS # 0.1 10^3/uL (0.0-0.5); EOS % 1.6 % (0.0-3.0); HEMATOCRIT 31.9 % (36.0-47.0); HEMOGLOBIN 9.9 g/dl (12.0-15.5); LYMPH # 0.8 10^3/uL (1.5-5.0); LYMPH % 17.4 % (24.0-44.0); MEAN CORPUSCULAR VOLUME 86.9 fl (80.0-96.0); MONO # 0.4 10^3/uL (0.0-0.8); MONO % 8.9 % (2.0-8.0); NEUTROPHILS # 3.1 10^3/uL (1.5-8.5); NEUTROPHILS % 71.2 % (36.0-66.0); PLATELET COUNT, AUTOMATED 146 10^3/uL (150-450); RED BLOOD COUNT 3.67 10^6/uL (4.00-5.40); WHITE BLOOD COUNT 4.4 10^3/uL (4.0-10.0)
[2023-09-27 17:46] LABS: BILIRUBIN,TOTAL 0.5 MG/DL (0.3-1.2); CALCIUM LEVEL 7.4 MG/DL (8.3-10.6); CREATININE FOR GFR 1.05 MG/DL (0.55-1.30); GLOMERULAR FILTRATION RATE 53.3 (>32); PERCENT SATURATION 13.8 % (13.2-45.0); POTASSIUM SERUM 3.1 MMOL/L (3.5-5.1); TOTAL PROTEIN 5.8 G/DL (5.7-8.2)
[2023-09-27 17:47] LABS: FERRITIN 77.1 NG/ML (7.3-270.7)
== END ==
LOC: M PLALAB 15:20
PROVIDERS: ATTEND Family Medicine
DX: K92.1 Melena (principal)

== ENCOUNTER → 2023-10-06 | Outpatient (CLI) | payer MEDICARE, BC ==
[2023-10-06 13:23] LABS: BASO % 0.4 % (0.0-1.0); EOS % 0.4 % (0.0-3.0); HEMATOCRIT 37.9 % (36.0-47.0); HEMOGLOBIN 11.8 g/dl (12.0-15.5); LYMPH # 0.8 10^3/uL (1.5-5.0); LYMPH % 12.5 % (24.0-44.0); MEAN CORPUSCULAR HGB CONC 31.1 g/dl (32.0-36.5); MEAN CORPUSCULAR VOLUME 86.7 fl (80.0-96.0); MONO # 0.5 10^3/uL (0.0-0.8); NEUTROPHILS # 5.3 10^3/uL (1.5-8.5); NEUTROPHILS % 78.4 % (36.0-66.0); PLATELET COUNT, AUTOMATED 214 10^3/uL (150-450); RED BLOOD COUNT 4.37 10^6/uL (4.00-5.40); WHITE BLOOD COUNT 6.7 10^3/uL (4.0-10.0)
== END ==
LOC: M LAB 12:51
PROVIDERS: ATTEND Family Medicine
DX: K92.1 Melena (principal)

== ENCOUNTER → 2023-10-06 | Outpatient (CLI) | payer MEDICARE, BC ==
[2023-10-06 13:05] VITALS: TEMP 97.9
[2023-10-06 13:52] VITALS: BP 125/58; O2SAT 96
[2023-10-06 13:59] VITALS: BP 117/58; O2SAT 97
[2023-10-06 14:07] VITALS: BP 125/67; O2SAT 96
== END ==
LOC: M IRPRO 12:45
PROVIDERS: ATTEND Internal Medicine Gastroenterology
DX: R18.8 Other ascites (principal); K92.1 Melena
CPT/HCPCS: 49083; 85025; 96374; P9047

== ENCOUNTER → 2023-10-20 | Outpatient (CLI) | payer MEDICARE, BC ==
[2023-10-20 15:50] LABS: BASO % 0.5 % (0.0-1.0); EOS % 0.7 % (0.0-3.0); HEMATOCRIT 34.6 % (36.0-47.0); HEMOGLOBIN 10.7 g/dl (12.0-15.5); LYMPH # 0.8 10^3/uL (1.5-5.0); LYMPH % 19.1 % (24.0-44.0); MEAN CORPUSCULAR HGB CONC 30.9 g/dl (32.0-36.5); MEAN CORPUSCULAR VOLUME 87.4 fl (80.0-96.0); MONO # 0.4 10^3/uL (0.0-0.8); MONO % 9.3 % (2.0-8.0); NEUTROPHILS # 3.1 10^3/uL (1.5-8.5); NEUTROPHILS % 69.9 % (36.0-66.0); PLATELET COUNT, AUTOMATED 167 10^3/uL (150-450); RED BLOOD COUNT 3.96 10^6/uL (4.00-5.40); WHITE BLOOD COUNT 4.4 10^3/uL (4.0-10.0)
== END ==
LOC: M PLALAB 13:26
PROVIDERS: ATTEND Family Medicine
DX: K74.60 Unspecified cirrhosis of liver (principal)

== ENCOUNTER → 2023-10-27 | Outpatient (CLI) | payer MEDICARE, BC ==
[2023-10-27 13:01] VITALS: TEMP 97.4
[2023-10-27 13:46] VITALS: BP 110/55; O2SAT 96
[2023-10-27 13:56] VITALS: BP 122/58; O2SAT 95
== END ==
LOC: M IRPRO 12:58
PROVIDERS: ATTEND Internal Medicine Gastroenterology
DX: R18.8 Other ascites (principal)
CPT/HCPCS: 49083; 96374; P9047

== ENCOUNTER → 2023-11-17 | Outpatient (CLI) | payer MEDICARE, BC ==
[2023-11-17 13:46] VITALS: TEMP 97.4
[2023-11-17 14:06] VITALS: BP 118/59; O2SAT 99
[2023-11-17 14:11] VITALS: BP 116/61; O2SAT 98
[2023-11-17 14:20] VITALS: BP 110/58; O2SAT 100
[2023-11-17 14:27] VITALS: BP 115/51; O2SAT 100
== END ==
LOC: M IRPRO 13:39
PROVIDERS: ATTEND Internal Medicine Gastroenterology
DX: R18.8 Other ascites (principal); K74.60 Unspecified cirrhosis of liver
CPT/HCPCS: 49083; 96374; P9047

== ENCOUNTER → 2023-11-25 | Outpatient (CLI) | payer MEDICARE, BC | LOC: M PLAIMG 13:10 | PROVIDERS: ATTEND Family Medicine | DX: M79.622 Pain in left upper arm (principal) ==

== ENCOUNTER → 2023-12-08 | Outpatient (CLI) | payer MEDICARE, BC ==
[~2023-12-08] MED LIST changes: +TORS20TA2
[2023-12-08 13:15] VITALS: TEMP 97
[2023-12-08 13:36] VITALS: BP 129/62; O2SAT 100
[2023-12-08 13:50] VITALS: BP 121/57; O2SAT 100
== END ==
LOC: M IRPRO 13:07
PROVIDERS: ATTEND Internal Medicine Gastroenterology
DX: R18.8 Other ascites (principal); K74.60 Unspecified cirrhosis of liver
CPT/HCPCS: 49083; 96365; P9047

== ENCOUNTER → 2023-12-10 | Outpatient (REF) | payer MEDICARE, OTHER ==
[2023-12-10 15:20] LABS: CHOLESTEROL RISK RATIO 3.37 (<5); HDL CHOLESTEROL 43.5 MG/DL (>40); LDL CHOLESTEROL 87.7 MG/DL (<100); NON-HDL-C 103.5 MG/DL
[2023-12-10 15:22] LABS: FREE T4 0.99 NG/DL (0.89-1.76)
[2023-12-10 15:23] LABS: THYROID STIMULATING HORMONE 2.162 uIU/ML (0.55-4.78)
[2023-12-10 15:32] LABS: HEMOGLOBIN A1c 6.1 % (4.0-6.0)
== END ==
LOC: M LAB REF 14:28
PROVIDERS: ATTEND Family Medicine
DX: K74.60 Unspecified cirrhosis of liver (principal); E78.00 Pure hypercholesterolemia, unspecified; E11.69 Type 2 diabetes mellitus with other specified complication

== ENCOUNTER → 2023-12-22 | Outpatient (CLI) | payer MEDICARE, BC ==
[2023-12-22 13:30] VITALS: TEMP 98.3
[2023-12-22 14:02] VITALS: O2SAT 100
[2023-12-22 14:14] VITALS: BP 122/57; O2SAT 98
[2023-12-22 14:22] VITALS: BP 127/71; O2SAT 100
[2023-12-22 14:27] VITALS: BP 111/53; O2SAT 100
[2023-12-22 14:31] VITALS: BP 113/56; O2SAT 99
== END ==
LOC: M IRPRO 13:21
PROVIDERS: ATTEND Internal Medicine Gastroenterology
DX: R18.8 Other ascites (principal); K74.60 Unspecified cirrhosis of liver
CPT/HCPCS: 49083; 96365; P9047

== ENCOUNTER → 2024-01-05 | Outpatient (CLI) | payer MEDICARE, BC ==
[~2024-01-05] MED LIST changes: +ONDA-282 PO; -ONDA4TAB6 PO
[2024-01-05 13:25] VITALS: TEMP 98
[2024-01-05 13:59] VITALS: BP 104/50; O2SAT 100
[2024-01-05 14:02] VITALS: BP 103/47; O2SAT 100
[2024-01-05 14:06] VITALS: BP 112/50; O2SAT 100
[2024-01-05 14:12] VITALS: BP 114/55; O2SAT 100
[2024-01-05 14:16] VITALS: BP 115/49; O2SAT 100
== END ==
LOC: M IRPRO 13:17
PROVIDERS: ATTEND Internal Medicine Gastroenterology
DX: R18.8 Other ascites (principal); K74.60 Unspecified cirrhosis of liver
CPT/HCPCS: 49083; 96365; P9047

== ENCOUNTER → 2024-01-19 | Outpatient (CLI) | payer MEDICARE, BC ==
[2024-01-19 13:40] VITALS: TEMP 98.2
[2024-01-19 14:43] VITALS: BP 116/56; O2SAT 97
[2024-01-19 14:46] VITALS: BP 122/57; O2SAT 97
[2024-01-19 14:51] VITALS: BP 115/55; O2SAT 98
[2024-01-19 14:52] VITALS: BP 116/57; O2SAT 98
[2024-01-19 14:54] VITALS: BP 119/57; O2SAT 98
== END ==
LOC: M IRPRO 13:25
PROVIDERS: ATTEND Internal Medicine Gastroenterology
DX: R18.8 Other ascites (principal); K74.60 Unspecified cirrhosis of liver
CPT/HCPCS: 49083; 96365; P9047

== ENCOUNTER → 2024-02-02 | Outpatient (CLI) | payer MEDICARE, BC ==
[2024-02-02 13:20] VITALS: TEMP 97.9
[2024-02-02 14:11] VITALS: BP 113/51; O2SAT 99
[2024-02-02 14:17] VITALS: BP 108/47; O2SAT 97
[2024-02-02 14:20] VITALS: BP 106/53; O2SAT 97
[2024-02-02 14:25] VITALS: BP 108/53; O2SAT 98
== END ==
LOC: M IRPRO 13:07
PROVIDERS: ATTEND Internal Medicine Gastroenterology
DX: R18.8 Other ascites (principal); K74.60 Unspecified cirrhosis of liver
CPT/HCPCS: 49083; 96374; P9047

== ENCOUNTER → 2024-02-16 | Outpatient (CLI) | payer MEDICARE, BC ==
[2024-02-16 13:45] VITALS: TEMP 98.4
[2024-02-16 14:13] VITALS: BP 113/57; O2SAT 98
[2024-02-16 14:17] VITALS: BP 112/54; O2SAT 98
[2024-02-16 14:20] VITALS: BP 115/52; O2SAT 97
[2024-02-16 14:24] LABS: BASO % 0.5 % (0.0-1.0); HEMATOCRIT 25.6 % (36.0-47.0); HEMOGLOBIN 7.7 g/dl (12.0-15.5); LYMPH # 0.6 10^3/uL (1.5-5.0); LYMPH % 14.4 % (24.0-44.0); MEAN CORPUSCULAR HEMOGLOBIN 26.5 pg (27.0-33.0); MEAN CORPUSCULAR HGB CONC 30.1 g/dl (32.0-36.5); MONO # 0.3 10^3/uL (0.0-0.8); MONO % 7.6 % (2.0-8.0); PLATELET COUNT, AUTOMATED 167 10^3/uL (150-450); RED BLOOD COUNT 2.91 10^6/uL (4.00-5.40)
[2024-02-16 14:27] VITALS: BP 116/49; O2SAT 98
[2024-02-16 14:35] LABS: HEMOGLOBIN A1c 6.6 % (4.0-6.0)
[2024-02-16 14:48] LABS: ALBUMIN 3.1 G/DL (3.2-5.2); BILIRUBIN,TOTAL 0.5 MG/DL (0.3-1.2); CALCIUM LEVEL 8.5 MG/DL (8.3-10.6); CHOLESTEROL RISK RATIO 3.32 (<5); CREATININE FOR GFR 1.29 MG/DL (0.55-1.30); GLOMERULAR FILTRATION RATE 41.9 (>32); LDL CHOLESTEROL 80.4 MG/DL (<100); POTASSIUM SERUM 4.3 MMOL/L (3.5-5.1); TOTAL PROTEIN 6.1 G/DL (5.7-8.2)
[2024-02-16 15:38] LABS: CREATININE, URINE 65.9 MG/DL; MAU/CREAT RATIO 12.1 MCG/MG (0.0-30.0)
== END ==
LOC: M IRPRO 13:34
PROVIDERS: ATTEND Internal Medicine Gastroenterology
DX: R18.8 Other ascites (principal); K74.60 Unspecified cirrhosis of liver; Z79.899 Other long term (current) drug therapy
CPT/HCPCS: 49083; 80053; 80061; 82043; 83036; 85025; 96374; P9047

== ENCOUNTER → 2024-02-21 | Outpatient (CLI) | payer MEDICARE, BC ==
[2024-02-21 12:53] LABS: CALCIUM LEVEL 8.5 MG/DL (8.3-10.6); CREATININE FOR GFR 1.46 MG/DL (0.55-1.30); GLOMERULAR FILTRATION RATE 36.3 (>32); MAGNESIUM LEVEL 2.1 MG/DL (1.8-2.4); PHOSPHORUS LEVEL 3.8 MG/DL (2.4-5.1); POTASSIUM SERUM 4.5 MMOL/L (3.5-5.1)
== END ==
LOC: M LAB 11:12
PROVIDERS: ATTEND Internal Medicine Gastroenterology
DX: K74.60 Unspecified cirrhosis of liver (principal); R18.8 Other ascites

== ENCOUNTER 2024-02-22 08:50 | Outpatient (CLI) | payer MEDICARE, BC ==
[~2024-02-22] VITALS: Ht 157.5 cm; Wt 61.8 kg
[2024-02-22 09:00] VITALS: BP 127/60; O2SAT 98
[2024-02-22] MEDS ORDERED: NS 250 ML IV ONE (09:30)
[2024-02-22 11:35] VITALS: BP 18/99; TEMP 97.8; O2SAT 100
[2024-02-22 12:41] VITALS: BP 109/54; TEMP 98.4; O2SAT 99
[2024-02-22 14:00] VITALS: BP 102/51; TEMP 97.3; O2SAT 99
[2024-02-22] MEDS: ACETAMINOPHEN TAB 650MG DOSE (2X325MG) PO ONE (14:24)
[2024-02-22 14:32] VITALS: BP 130/63; TEMP 97.2; O2SAT 98
[2024-02-22 14:50] VITALS: BP 110/63; O2SAT 98
== END 2024-02-22 14:50 ==
LOC: M INFU 08:50
PROVIDERS: ATTEND Family Medicine
DX: D62 Acute posthemorrhagic anemia (principal)
CPT/HCPCS: 36430; 36592; 86850; 86900; 86901; 86920; P9016

== ENCOUNTER → 2024-03-01 | Outpatient (CLI) | payer MEDICARE, BC ==
[2024-03-01 13:25] VITALS: TEMP 98.3
[2024-03-01 13:54] VITALS: BP 106/49; O2SAT 99
[2024-03-01 13:58] VITALS: BP 114/46; O2SAT 98
[2024-03-01 14:01] VITALS: BP 107/47; O2SAT 99
[2024-03-01 14:05] VITALS: BP 111/46; O2SAT 98
[2024-03-01 14:19] VITALS: BP 112/46; O2SAT 58
== END ==
LOC: M IRPRO 13:18
PROVIDERS: ATTEND Internal Medicine Gastroenterology
DX: R18.8 Other ascites (principal); K74.60 Unspecified cirrhosis of liver
CPT/HCPCS: 49083; 96374; P9047

== ENCOUNTER → 2024-03-15 | Outpatient (CLI) | payer MEDICARE, BC ==
[2024-03-15 13:39] VITALS: TEMP 97.5
[2024-03-15 14:09] VITALS: BP 124/46; O2SAT 100
[2024-03-15 14:12] VITALS: BP 115/43; O2SAT 100
[2024-03-15 14:14] VITALS: BP 121/43; O2SAT 100
[2024-03-15 14:19] VITALS: BP 122/49; O2SAT 100
== END ==
LOC: M IRPRO 13:32
PROVIDERS: ATTEND Family Medicine
DX: R18.8 Other ascites (principal)
CPT/HCPCS: 49083; 96374; P9047

== ENCOUNTER 2024-03-23 22:03 | Inpatient (IN) | payer MEDICARE, BC ==
[~2024-03-23] VITALS: Ht 157.5 cm; Wt 62.1 kg
[~2024-03-23 22:03] MED LIST changes: -TORS20TA2; +TORS20TA2 PO
[2024-03-23 22:40] LABS: VENOUS BASE EXCESS -2.4 (-2.0-2.0); VENOUS HCO3 21.3 MMOL/L (23.0-27.0); VENOUS PARTIAL PRESSURE CO2 32.2 mmHg (38.0-50.0); VENOUS PARTIAL PRESSURE O2 36.4 mmHg (30.0-50.0); VENOUS PH 7.439 UNITS (7.330-7.430); VENOUS STANDARD HCO3 22.1 MMOL/L; VENOUS TOTAL CO2 22.3 MMOL/L (24.0-28.0)
[2024-03-23 22:45] LABS: BASO % 0.2 % (0.0-1.0); EOS % 0.7 % (0.0-3.0); HEMATOCRIT 25.6 % (36.0-47.0); HEMOGLOBIN 7.5 g/dl (12.0-15.5); LYMPH # 0.7 10^3/uL (1.5-5.0); MEAN CORPUSCULAR HGB CONC 29.3 g/dl (32.0-36.5); MEAN CORPUSCULAR VOLUME 82.1 fl (80.0-96.0); MONO # 0.4 10^3/uL (0.0-0.8); MONO % 9.7 % (2.0-8.0); NEUTROPHILS % 72.2 % (36.0-66.0); PLATELET COUNT, AUTOMATED 157 10^3/uL (150-450); RED BLOOD COUNT 3.12 10^6/uL (4.00-5.40); WHITE BLOOD COUNT 4.1 10^3/uL (4.0-10.0)
[2024-03-23 22:57] LABS: INR 1.58; PARTIAL THROMBOPLASTIN TIME 31.1 SECONDS (24.8-34.2); PROTHROMBIN TIME 18.4 SECONDS (12.5-14.5)
[2024-03-23 23:07] LABS: ETHYL ALCOHOL (ETHANOL) < 0.003 % (0.000-0.010); LIPASE 22 U/L (12-53)
[2024-03-23 23:09] LABS: ALBUMIN 3.3 G/DL (3.2-5.2); ALKALINE PHOSPHATASE 93 U/L (46-116); ALT/SGPT 11 U/L (7.0-40); AST/SGOT < 8 U/L (<34); BILIRUBIN,DIRECT 0.2 MG/DL (<0.4); BILIRUBIN,TOTAL 0.4 MG/DL (0.3-1.2); BLOOD UREA NITROGEN 31 MG/DL (9-23); CALCIUM LEVEL 8.2 MG/DL (8.3-10.6); CARBON DIOXIDE LEVEL 25 MMOL/L (20-31); CHLORIDE LEVEL 102 MMOL/L (98-107); CK-MB VALUE MASS < 1.0 NG/ML (<3.6); CPK CREATINE PHOSPHOKINASE 42 U/L (34-145); CREATININE FOR GFR 1.63 MG/DL (0.55-1.30); GLUCOSE, FASTING 193 MG/DL (74-106); MB/CK RELATIVE INDEX 2.38 (< OR =4); POTASSIUM SERUM 4.4 MMOL/L (3.5-5.1); SODIUM LEVEL 133 MMOL/L (136-145); TOTAL PROTEIN 6.1 G/DL (5.7-8.2)
[2024-03-23 23:35] LABS: AMYLASE < 20 U/L (30-118)
[2024-03-23 23:54] LABS: APPEARANCE, URINE CLEAR (CLEAR); BACTERIA, URINE AUTO NEGATIVE (NEGATIVE); BILIRUBIN, URINE AUTO NEGATIVE (NEGATIVE); BLOOD, URINE BLOOD NEGATIVE (NEGATIVE); COLOR, URINE YELLOW (YELLOW); GLUCOSE, URINE (UA) AUTO 3+ mg/dL (NEGATIVE); KETONE, URINE AUTO NEGATIVE (NEGATIVE); LEUKOCYTE ESTERASE, URINE AUTO NEGATIVE (NEGATIVE); NITRITE, URINE AUTO NEGATIVE (NEGATIVE); PROTEIN, URINE AUTO NEGATIVE (NEGATIVE); RBC, URINE AUTO 0 /HPF (0-3); SPECIFIC GRAVITY URINE AUTO 1.008 (1.002-1.035); SQUAMOUS EPITHELIAL CELL UR AU 0 /HPF (0-6); UROBILINOGEN, URINE AUTO 0.2 mg/dL (0.0-2.0); WBC, URINE AUTO 1 /HPF (0-3)
[2024-03-24 00:13] LABS: AMPHETAMINES LEVEL URINE NEGATIVE (NEGATIVE); BARBITURATES URINE NEGATIVE (NEGATIVE)
[2024-03-24 00:14] LABS: BENZODIAZEPINES URINE NEGATIVE (NEGATIVE); CANNABINOIDS URINE NEGATIVE (NEGATIVE); COCAINE METABOLITE URINE NEGATIVE (NEGATIVE); METHADONE URINE NEGATIVE (NEGATIVE); OPIATES URINE NEGATIVE (NEGATIVE); PHENCYCLIDINE URINE NEGATIVE (NEGATIVE)
[2024-03-24] MEDS ORDERED: ISOVUE-370 76% 100ML VIAL As Ordered ONE (01:33)
[2024-03-24] MEDS: NS 1,000 ML IV ONE (02:05)
[2024-03-24] MEDS ORDERED: MAALOX 30 ML SUSP *UDC PO PRN (05:05)
[2024-03-24] MEDS ORDERED: MOM 30ML SUSPENSION UDC PO PRN (05:05)
[2024-03-24] MEDS: ASPIRIN 325 MG TAB PO ONE (05:19)
[2024-03-24] MEDS ORDERED: GLUCAGON INJ 1MG VIAL SC PRN (06:00)
[2024-03-24] MEDS ORDERED: GLUCOSE 4 GM CHEW PO PRN (06:00)
[2024-03-24 06:03] LABS: HEMATOCRIT 25.5 % (36.0-47.0); HEMOGLOBIN 7.4 g/dl (12.0-15.5); MEAN CORPUSCULAR HEMOGLOBIN 23.9 pg (27.0-33.0); MEAN CORPUSCULAR VOLUME 82.3 fl (80.0-96.0); PLATELET COUNT, AUTOMATED 150 10^3/uL (150-450); WHITE BLOOD COUNT 2.9 10^3/uL (4.0-10.0)
[2024-03-24 07:29] LABS: HEMATOCRIT 24.6 % (36.0-47.0); HEMOGLOBIN 7.3 g/dl (12.0-15.5)
[2024-03-24 08:01] LABS: FERRITIN 11.8 NG/ML (7.3-270.7); FOLATE 8.86 NG/ML (>5.4)
[2024-03-24 08:20] LABS: CALCIUM LEVEL 7.7 MG/DL (8.3-10.6); CREATININE FOR GFR 1.55 MG/DL (0.55-1.30); GLOMERULAR FILTRATION RATE 33.9 (>32); MAGNESIUM LEVEL 2.1 MG/DL (1.8-2.4); POTASSIUM SERUM 4.2 MMOL/L (3.5-5.1)
[2024-03-24] MEDS: INSULIN LISPRO (NovoLOG) PER UNIT SC SCH ×2 (08:21→21:00)
[2024-03-24] MEDS: PANTOPRAZOLE 40MG VIAL IV SCH (09:01)
[2024-03-24] MEDS ORDERED: DIGO0.123 PO (09:42)
[2024-03-24] MEDS ORDERED: TOUJ300I2 SC (09:42)
[2024-03-24] MEDS ORDERED: ACET-1349 PO (09:44)
[2024-03-24] MEDS ORDERED: HOME MED LIST COMPLETE! XX SCH (09:45)
[2024-03-24] MEDS: SUCRALFATE 1 GM TAB PO SCH (12:45)
[2024-03-24] MEDS: OCTREOTIDE ACETATE 100MCG/ML VIAL **IV ADMINISTRATION ONLY IV SCH (12:45)
[2024-03-24] MEDS: cefTRIAXone SOD 1 GM in D5W MINI-BAG PLUS 50 ML IV SCH (12:46)
[2024-03-24 14:02] LABS: HEMATOCRIT 27.4 % (36.0-47.0)
[2024-03-24 16:33] VITALS: BP 113/67; TEMP 98.1; O2SAT 99
[2024-03-24 19:46] LABS: HEMOGLOBIN 7.7 g/dl (12.0-15.5)
[2024-03-24] MEDS: rOPINIRole 1MG TAB PO SCH (21:21)
[2024-03-24 22:00] VITALS: BP 123/56; TEMP 97.7; O2SAT 97
[2024-03-24 22:11] VITALS: BP 123/56; TEMP 97.7; O2SAT 97
[2024-03-24 22:26] VITALS: BP 119/56; TEMP 97.7; O2SAT 98
[2024-03-24] MEDS: ACETAMINOPHEN TAB 650MG DOSE (2X325MG) PO PRN (22:30)
[2024-03-24 23:27] VITALS: BP 113/38; TEMP 98.1; O2SAT 97
[2024-03-25] VITALS (14 sets, daily range): BP systolic 100–126; BP diastolic 37–85; TEMP 97.3–98.1; O2SAT 94–98
[2024-03-25 06:02] LABS: BASO % 0.8 % (0.0-1.0); EOS # 0.1 10^3/uL (0.0-0.5); EOS % 1.3 % (0.0-3.0); HEMATOCRIT 33.2 % (36.0-47.0); LYMPH # 0.9 10^3/uL (1.5-5.0); LYMPH % 22.8 % (24.0-44.0); MEAN CORPUSCULAR HEMOGLOBIN 25.6 pg (27.0-33.0); MEAN CORPUSCULAR HGB CONC 30.4 g/dl (32.0-36.5); MEAN CORPUSCULAR VOLUME 84.1 fl (80.0-96.0); MONO # 0.4 10^3/uL (0.0-0.8); MONO % 10.3 % (2.0-8.0); NEUTROPHILS # 2.4 10^3/uL (1.5-8.5); NEUTROPHILS % 64.5 % (36.0-66.0); PLATELET COUNT, AUTOMATED 157 10^3/uL (150-450); RED BLOOD COUNT 3.95 10^6/uL (4.00-5.40); WHITE BLOOD COUNT 3.8 10^3/uL (4.0-10.0)
[2024-03-25 06:08] LABS: HEMOGLOBIN 10.1 g/dl (12.0-15.5)
[2024-03-25 06:29] LABS: CREATININE FOR GFR 1.39 MG/DL (0.55-1.30); GLOMERULAR FILTRATION RATE 38.5 (>32); POTASSIUM SERUM 4.4 MMOL/L (3.5-5.1)
[2024-03-25] MEDS: DEXTROSE 50% 50ML SYRINGE IV PRN (07:43)
[2024-03-25] MEDS ORDERED: propofoL 200 MG/20 ML VIAL As Ordered ONE (07:53)
[2024-03-25] MEDS ORDERED: fentaNYL 100 MCG/2 ML INJECTION As Ordered ONE (07:53)
[2024-03-25] MEDS ORDERED: LIDOCAINE 2% 100MG/5ML SDV (FOR ANES.) As Ordered ONE (07:53)
[2024-03-25 08:10] LABS: HEMATOCRIT 30.9 % (36.0-47.0); HEMOGLOBIN 9.3 g/dl (12.0-15.5)
[2024-03-25 13:33] LABS: HEMATOCRIT 32.5 % (36.0-47.0)
[2024-03-25 19:26] LABS: HEMATOCRIT 32.9 % (36.0-47.0)
[2024-03-26 03:22] VITALS: BP 128/55; TEMP 97.9; O2SAT 97
[2024-03-26 06:31] LABS: BASO % 1.1 % (0.0-1.0); EOS # 0.1 10^3/uL (0.0-0.5); EOS % 1.4 % (0.0-3.0); HEMATOCRIT 34.8 % (36.0-47.0); HEMOGLOBIN 10.4 g/dl (12.0-15.5); LYMPH # 0.8 10^3/uL (1.5-5.0); LYMPH % 21.6 % (24.0-44.0); MEAN CORPUSCULAR HEMOGLOBIN 25.1 pg (27.0-33.0); MEAN CORPUSCULAR HGB CONC 29.9 g/dl (32.0-36.5); MEAN CORPUSCULAR VOLUME 83.9 fl (80.0-96.0); MONO # 0.4 10^3/uL (0.0-0.8); MONO % 11.1 % (2.0-8.0); NEUTROPHILS # 2.3 10^3/uL (1.5-8.5); NEUTROPHILS % 64.5 % (36.0-66.0); PLATELET COUNT, AUTOMATED 161 10^3/uL (150-450); RED BLOOD COUNT 4.15 10^6/uL (4.00-5.40); WHITE BLOOD COUNT 3.6 10^3/uL (4.0-10.0)
[2024-03-26 06:59] LABS: CALCIUM LEVEL 8.3 MG/DL (8.3-10.6); CREATININE FOR GFR 1.48 MG/DL (0.55-1.30); GLOMERULAR FILTRATION RATE 35.8 (>32); POTASSIUM SERUM 4.7 MMOL/L (3.5-5.1)
[2024-03-26 07:25] VITALS: BP 108/47; TEMP 98.2; O2SAT 96
[2024-03-26] MEDS: LIDOCAINE 5% (LIDODERM) PATCH TD SCH (09:00)
[2024-03-26 11:25] VITALS: BP 110/48; TEMP 98.1; O2SAT 99
== END 2024-03-26 13:30 | disposition home or self-care (01) | DRG 378 ==
LOC: M ED 22:03 → EDBD 22:03 → M ED INP 03-24 05:24 → M MSPAV 03-24 16:34
PROVIDERS: ADMIT Family Medicine; ATTEND Internal Medicine Nephrology
PROC: B246ZZZ Ultrasonography of Right and Left Heart (ICD-10-PCS; 2024-03-24)
PROC: 30233N1 Transfusion of Nonautologous Red Blood Cells into Peripheral Vein, Percutaneous Approach (ICD-10-PCS; 2024-03-24)
PROC: 0DJ08ZZ Inspection of Upper Intestinal Tract, Via Natural or Artificial Opening Endoscopic (ICD-10-PCS; principal; 2024-03-25 08:00)
DX: K92.2 Gastrointestinal hemorrhage, unspecified (principal); R18.8 Other ascites; D62 Acute posthemorrhagic anemia; I50.32 Chronic diastolic (congestive) heart failure; R42 Dizziness and giddiness; D50.9 Iron deficiency anemia, unspecified; I48.0 Paroxysmal atrial fibrillation; R29.6 Repeated falls; J45.909 Unspecified asthma, uncomplicated; E11.9 Type 2 diabetes mellitus without complications; K25.9 Gastric ulcer, unspecified as acute or chronic, without hemorrhage or perforation; G62.9 Polyneuropathy, unspecified; K74.60 Unspecified cirrhosis of liver; F32.A Depression, unspecified; I35.0 Nonrheumatic aortic (valve) stenosis; K31.7 Polyp of stomach and duodenum; G25.81 Restless legs syndrome; K21.00 Gastro-esophageal reflux disease with esophagitis, without bleeding; Z66 Do not resuscitate; Z90.49 Acquired absence of other specified parts of digestive tract; Z96.611 Presence of right artificial shoulder joint; Z98.41 Cataract extraction status, right eye; Z98.42 Cataract extraction status, left eye; Z79.4 Long term (current) use of insulin; Z79.899 Other long term (current) drug therapy; Z88.1 Allergy status to other antibiotic agents; Z88.8 Allergy status to other drugs, medicaments and biological substances; Z91.048 Other nonmedicinal substance allergy status

== ENCOUNTER → 2024-03-28 | Outpatient (CLI) | payer MEDICARE, BC ==
[~2024-03-28] MED LIST changes: +TOUJ300I2 SC
== END ==
LOC: M PLAIMG 14:43
PROVIDERS: ATTEND Family Medicine
DX: R07.81 Pleurodynia (principal)

== ENCOUNTER → 2024-03-30 | Outpatient (CLI) | payer MEDICARE, BC ==
[2024-03-30] VITALS (7 sets, daily range): BP systolic 103–125; BP diastolic 48–52; TEMP 98.3; O2SAT 97–98
== END ==
LOC: M IRPRO 14:15
PROVIDERS: ATTEND Family Medicine
DX: R18.8 Other ascites (principal)
CPT/HCPCS: 49083; 96365; P9047

== ENCOUNTER 2024-04-12 14:28 | Emergency (ER) | payer MEDICARE, BC ==
[~2024-04-12] VITALS: Ht 157.5 cm; Wt 62.3 kg
[2024-04-12 14:28] VITALS: BP 149/65; TEMP 97.3; O2SAT 97
== END 2024-04-12 16:03 | disposition left against medical advice (07) ==
LOC: M ED 14:28
DX: Z53.21 Procedure and treatment not carried out due to patient leaving prior to being seen by health care provider (principal)

== ENCOUNTER → 2024-04-12 | Outpatient (CLI) | payer MEDICARE, BC ==
[2024-04-12 12:45] VITALS: TEMP 97.9
[2024-04-12 13:07] VITALS: BP 128/57; O2SAT 98
[2024-04-12 13:09] VITALS: BP 136/59; O2SAT 98
[2024-04-12 13:12] VITALS: BP 127/58; O2SAT 99
[2024-04-12 13:18] VITALS: BP 131/59; O2SAT 99
[2024-04-12 13:23] VITALS: BP 127/68; O2SAT 99
== END ==
LOC: M IRPRO 12:39
PROVIDERS: ATTEND Family Medicine
DX: K74.60 Unspecified cirrhosis of liver (principal)
CPT/HCPCS: 49083; 96374; P9047

== ENCOUNTER → 2024-04-22 | Outpatient (CLI) | payer MEDICARE, BC | LOC: M INFU 11:54 | PROVIDERS: ATTEND Internal Medicine Medical Oncology | DX: Z53.9 Procedure and treatment not carried out, unspecified reason (principal) ==

== ENCOUNTER → 2024-04-26 | Outpatient (CLI) | payer MEDICARE, BC ==
[~2024-04-26] MED LIST changes: -SENN-111 PO; +SENN-165 PO
[2024-04-26 13:31] VITALS: TEMP 98.7
[2024-04-26 14:00] VITALS: BP 118/54; O2SAT 98
[2024-04-26 14:07] VITALS: BP 113/50; O2SAT 97
[2024-04-26 14:22] VITALS: BP 116/57; O2SAT 98
[2024-04-26 14:28] VITALS: BP 134/58; O2SAT 98
== END ==
LOC: M IRPRO 13:27
PROVIDERS: ATTEND Family Medicine
DX: R18.8 Other ascites (principal); K74.60 Unspecified cirrhosis of liver; J20.9 Acute bronchitis, unspecified
CPT/HCPCS: 49083; 87486; 87581; 87633; 87798; 96365; P9047

== ENCOUNTER → 2024-04-26 | Outpatient (REF) | payer MEDICARE, OTHER | LOC: M LAB REF 17:18 | PROVIDERS: ATTEND Physician Assistant | DX: J20.9 Acute bronchitis, unspecified (principal) ==

== ENCOUNTER → 2024-05-10 | Outpatient (CLI) | payer MEDICARE, BC ==
[2024-05-10 13:36] VITALS: TEMP 97.7
[2024-05-10 14:17] VITALS: BP 116/54; O2SAT 98
[2024-05-10 14:20] VITALS: BP 114/50; O2SAT 98
[2024-05-10 14:23] VITALS: BP 120/57; O2SAT 99
[2024-05-10 14:26] VITALS: BP 125/54; O2SAT 100
== END ==
LOC: M IRPRO 13:25
PROVIDERS: ATTEND Family Medicine
DX: R18.8 Other ascites (principal)
CPT/HCPCS: 49083; 96374; P9047

== ENCOUNTER → 2024-05-24 | Outpatient (CLI) | payer MEDICARE, BC ==
[~2024-05-24] MED LIST changes: -MIDO10TA PO; +MIDO10TA3 PO
[2024-05-24 13:52] VITALS: TEMP 98.1
[2024-05-24 14:24] VITALS: BP 120/59; O2SAT 98
[2024-05-24 14:27] VITALS: BP 112/58; O2SAT 98
[2024-05-24 14:31] VITALS: BP 119/54; O2SAT 98
[2024-05-24 14:33] VITALS: BP 118/61; O2SAT 98
[2024-05-24 14:40] VITALS: BP 146/63; O2SAT 98
== END ==
LOC: M IRPRO 13:47
PROVIDERS: ATTEND Family Medicine
DX: R18.8 Other ascites (principal)
CPT/HCPCS: 49083; 96365; P9047

== ENCOUNTER → 2024-06-14 | Outpatient (CLI) | payer MEDICARE, BC ==
[2024-06-14 13:40] VITALS: TEMP 99
[2024-06-14 14:50] VITALS: BP 123/68; O2SAT 98
[2024-06-14 14:56] VITALS: BP 122/57; O2SAT 97
[2024-06-14 15:05] VITALS: BP 118/57; O2SAT 97
[2024-06-14 15:12] VITALS: BP 131/60; O2SAT 98
[2024-06-14 15:14] LABS: BASO % 0.3 % (0.0-1.0); EOS % 0.8 % (0.0-3.0); HEMATOCRIT 34.3 % (36.0-47.0); HEMOGLOBIN 10.8 g/dl (12.0-15.5); LYMPH # 0.6 10^3/uL (1.5-5.0); LYMPH % 17.7 % (24.0-44.0); MEAN CORPUSCULAR HEMOGLOBIN 26.6 pg (27.0-33.0); MEAN CORPUSCULAR HGB CONC 31.5 g/dl (32.0-36.5); MEAN CORPUSCULAR VOLUME 84.5 fl (80.0-96.0); MONO # 0.3 10^3/uL (0.0-0.8); MONO % 8.6 % (2.0-8.0); NEUTROPHILS # 2.6 10^3/uL (1.5-8.5); NEUTROPHILS % 72.6 % (36.0-66.0); PLATELET COUNT, AUTOMATED 127 10^3/uL (150-450); RED BLOOD COUNT 4.06 10^6/uL (4.00-5.40); WHITE BLOOD COUNT 3.6 10^3/uL (4.0-10.0)
[2024-06-14 15:21] VITALS: BP 125/59; O2SAT 99
[2024-06-14 15:37] LABS: PERCENT SATURATION 14.1 % (13.2-45.0)
[2024-06-14 15:42] LABS: FERRITIN 50.2 NG/ML (7.3-270.7)
== END ==
LOC: M IRPRO 13:54
PROVIDERS: ATTEND Family Medicine
DX: R18.8 Other ascites (principal); K74.60 Unspecified cirrhosis of liver
CPT/HCPCS: 49083; 82728; 83550; 85025; 96365; P9047

== ENCOUNTER → 2024-06-28 | Outpatient (CLI) | payer MEDICARE, BC ==
[2024-06-28 14:34] LABS: BASO % 0.6 % (0.0-1.0); EOS % 0.6 % (0.0-3.0); HEMATOCRIT 29.8 % (36.0-47.0); HEMOGLOBIN 9.3 g/dl (12.0-15.5); LYMPH # 0.6 10^3/uL (1.5-5.0); LYMPH % 17.6 % (24.0-44.0); MEAN CORPUSCULAR HEMOGLOBIN 27.1 pg (27.0-33.0); MEAN CORPUSCULAR HGB CONC 31.2 g/dl (32.0-36.5); MEAN CORPUSCULAR VOLUME 86.9 fl (80.0-96.0); MONO # 0.3 10^3/uL (0.0-0.8); MONO % 9.4 % (2.0-8.0); NEUTROPHILS # 2.4 10^3/uL (1.5-8.5); NEUTROPHILS % 71.5 % (36.0-66.0); PLATELET COUNT, AUTOMATED 134 10^3/uL (150-450); RED BLOOD COUNT 3.43 10^6/uL (4.00-5.40); WHITE BLOOD COUNT 3.4 10^3/uL (4.0-10.0)
[2024-06-28 14:59] LABS: ALKALINE PHOSPHATASE 123 U/L (35-104); ALT/SGPT 15 U/L (7.0-40); AST/SGOT < 8 U/L (<34); BILIRUBIN,TOTAL 0.4 MG/DL (0.3-1.2); BLOOD UREA NITROGEN 22 MG/DL (9-23); CALCIUM LEVEL 8.8 MG/DL (8.3-10.6); CARBON DIOXIDE LEVEL 27 MMOL/L (20-31); CHLORIDE LEVEL 103 MMOL/L (98-107); CREATININE FOR GFR 1.14 MG/DL (0.55-1.30); GLOMERULAR FILTRATION RATE 48.3 (>32); GLUCOSE, FASTING 187 MG/DL (74-106); IRON (FE) 29 UG/DL (50-170); PERCENT SATURATION 13.9 % (13.2-45.0); POTASSIUM SERUM 4.4 MMOL/L (3.5-5.1); SODIUM LEVEL 139 MMOL/L (136-145); TOTAL IRON BINDING CAPACITY 209 UG/DL (250-425); TOTAL PROTEIN 6.7 G/DL (5.7-8.2)
[2024-06-28 15:01] LABS: FERRITIN 91.8 NG/ML (7.3-270.7)
== END ==
LOC: M LAB 13:17
PROVIDERS: ATTEND Internal Medicine Hematology & Oncology
DX: D50.9 Iron deficiency anemia, unspecified (principal)

== ENCOUNTER → 2024-06-28 | Outpatient (CLI) | payer MEDICARE, BC ==
[2024-06-28 13:30] VITALS: TEMP 98.3
[2024-06-28 13:52] VITALS: BP 113/68; O2SAT 98
[2024-06-28 13:55] VITALS: BP 118/59; O2SAT 98
[2024-06-28 13:58] VITALS: BP 113/57; O2SAT 98
== END ==
LOC: M IRPRO 13:12
PROVIDERS: ATTEND Family Medicine
DX: R18.8 Other ascites (principal); K74.60 Unspecified cirrhosis of liver; D50.9 Iron deficiency anemia, unspecified
CPT/HCPCS: 49083; 80053; 82728; 83550; 85025; 96374; P9047

== ENCOUNTER → 2024-07-12 | Outpatient (CLI) | payer MEDICARE, BC ==
[2024-07-12 11:00] VITALS: TEMP 97.8
[2024-07-12 12:16] VITALS: BP 139/60; O2SAT 98
[2024-07-12 12:21] VITALS: BP 132/60; O2SAT 98
[2024-07-12 12:26] VITALS: BP 121/58; O2SAT 98
[2024-07-12 12:34] VITALS: BP 141/65; O2SAT 97
== END ==
LOC: M IRPRO 10:46
PROVIDERS: ATTEND Family Medicine
DX: R18.8 Other ascites (principal); K74.60 Unspecified cirrhosis of liver
CPT/HCPCS: 49083; 96365; P9047

== ENCOUNTER → 2024-07-24 | Outpatient (CLI) | payer MEDICARE, BC | LOC: M CARPUL 09:35 | PROVIDERS: ATTEND Family Medicine | DX: I08.0 Rheumatic disorders of both mitral and aortic valves (principal); I35.2 Nonrheumatic aortic (valve) stenosis with insufficiency; I50.30 Unspecified diastolic (congestive) heart failure; I35.0 Nonrheumatic aortic (valve) stenosis; I37.1 Nonrheumatic pulmonary valve insufficiency ==

== ENCOUNTER → 2024-07-27 | Outpatient (CLI) | payer MEDICARE, BC ==
[2024-07-27 15:04] VITALS: TEMP 97.8
[2024-07-27 15:50] VITALS: BP 126/70; O2SAT 99
== END ==
LOC: M IRPRO 14:56
PROVIDERS: ATTEND Family Medicine
DX: R18.8 Other ascites (principal); K74.60 Unspecified cirrhosis of liver
CPT/HCPCS: 49083; 96365; P9047

== ENCOUNTER → 2024-08-09 | Outpatient (CLI) | payer MEDICARE, BC ==
[2024-08-09 12:32] VITALS: TEMP 98.2
[2024-08-09 12:53] VITALS: BP 128/62; O2SAT 97
[2024-08-09 12:57] VITALS: BP 112/47; O2SAT 99
[2024-08-09 13:01] VITALS: BP 71/34; O2SAT 98
[2024-08-09 13:08] VITALS: BP 138/63; O2SAT 98
== END ==
LOC: M IRPRO 12:17
PROVIDERS: ATTEND Family Medicine
DX: R18.8 Other ascites (principal); K74.60 Unspecified cirrhosis of liver
CPT/HCPCS: 49083; 96374; P9047

== ENCOUNTER → 2024-08-24 | Outpatient (CLI) | payer MEDICARE, BC | LOC: M IRPRO 13:28 | PROVIDERS: ATTEND Family Medicine | DX: R18.8 Other ascites (principal); K74.60 Unspecified cirrhosis of liver ==

== ENCOUNTER → 2024-09-07 | Outpatient (CLI) | payer MEDICARE, BC | LOC: M IRPRO 12:57 | PROVIDERS: ATTEND Family Medicine | DX: R18.8 Other ascites (principal); K74.60 Unspecified cirrhosis of liver ==

== ENCOUNTER → 2024-09-21 | Outpatient (CLI) | payer MEDICARE, BC ==
[2024-09-21 14:22] VITALS: BP 135/98; TEMP 97.3; O2SAT 99
[2024-09-21 14:27] VITALS: BP 132/63; TEMP 98; O2SAT 97
[2024-09-21 14:30] VITALS: BP 133/63; TEMP 98.2; O2SAT 97
[2024-09-21 14:35] VITALS: BP 132/59; TEMP 97.8; O2SAT 98
== END ==
LOC: M IRPRO 13:03
PROVIDERS: ATTEND Family Medicine
DX: R18.8 Other ascites (principal); K74.60 Unspecified cirrhosis of liver
CPT/HCPCS: 49083; 96365; P9047

== ENCOUNTER → 2024-10-19 | Outpatient (CLI) | payer MEDICARE, BC | LOC: M IRPRO 13:00 | PROVIDERS: ATTEND Family Medicine | DX: R18.8 Other ascites (principal); K74.60 Unspecified cirrhosis of liver ==

== ENCOUNTER → 2024-11-02 | Outpatient (CLI) | payer MEDICARE, BC | LOC: M IRPRO 13:06 | PROVIDERS: ATTEND Family Medicine | DX: R18.8 Other ascites (principal); K74.60 Unspecified cirrhosis of liver ==

== ENCOUNTER 2024-11-28 20:14 | Observation (INO) | payer MEDICARE, BC ==
[~2024-11-28] VITALS: Ht 160 cm; Wt 59.1 kg
[~2024-11-28 20:14] MED LIST changes: -ESSE250T PO; +MAGN250T17 PO; +PREG-35 PO
[2024-11-28 21:32] LABS: BASO % 0.1 % (0.0-1.0); EOS % 0.3 % (0.0-3.0); HEMATOCRIT 41.4 % (36.0-47.0); HEMOGLOBIN 14.1 g/dl (12.0-15.5); LYMPH # 0.8 10^3/uL (1.5-5.0); LYMPH % 10.8 % (24.0-44.0); MEAN CORPUSCULAR HEMOGLOBIN 29.9 pg (27.0-33.0); MEAN CORPUSCULAR HGB CONC 34.1 g/dl (32.0-36.5); MEAN CORPUSCULAR VOLUME 87.9 fl (80.0-96.0); MONO # 0.6 10^3/uL (0.0-0.8); NEUTROPHILS # 5.8 10^3/uL (1.5-8.5); NEUTROPHILS % 80.1 % (36.0-66.0); PLATELET COUNT, AUTOMATED 172 10^3/uL (150-450); RED BLOOD COUNT 4.71 10^6/uL (4.00-5.40); WHITE BLOOD COUNT 7.3 10^3/uL (4.0-10.0)
[2024-11-28 22:03] LABS: ALBUMIN 3.7 G/DL (3.2-5.2); BILIRUBIN,DIRECT 0.4 MG/DL (<0.4); BILIRUBIN,TOTAL 1.2 MG/DL (0.3-1.2); CALCIUM LEVEL 8.9 MG/DL (8.3-10.6); CREATININE FOR GFR 1.28 MG/DL (0.55-1.30); GLOMERULAR FILTRATION RATE 41.3 (>32); POTASSIUM SERUM 4.1 MMOL/L (3.5-5.1); TOTAL PROTEIN 7.3 G/DL (5.7-8.2)
[2024-11-29] MEDS: ONDANSETRON 4MG 2ML VIAL IV ONE (03:30)
[2024-11-29] MEDS: MORPHINE 2 MG/ML 1ML VIAL IV ONE (03:32)
[2024-11-29] MEDS: cefTRIAXone SOD 2 GM in DEXTROSE 5% (D5W) ADV/MINI-BAG 50 ML IV ONE (03:41)
[2024-11-29 03:51] LABS: INR 1.08; PARTIAL THROMBOPLASTIN TIME 25.5 SECONDS (24.8-34.2); PROTHROMBIN TIME 14.3 SECONDS (12.5-14.5)
[2024-11-29] MEDS ORDERED: NALOXONE INJ 0.4MG/1ML VIAL IV PRN (04:15)
[2024-11-29] MEDS ORDERED: DEXTROSE 50% 50ML SYRINGE IV PRN (04:15)
[2024-11-29] MEDS ORDERED: MORPHINE 2 MG/ML 1ML VIAL IV PRN ×2 (04:15)
[2024-11-29] MEDS ORDERED: GLUCOSE 4 GM CHEW PO PRN (04:15)
[2024-11-29] MEDS ORDERED: ONDANSETRON 4MG ORAL DISINTEGRATING TAB PO PRN (04:15)
[2024-11-29] MEDS ORDERED: GLUCAGON INJ 1MG VIAL SC PRN (04:15)
[2024-11-29] MEDS: INSULIN LISPRO (NovoLOG) PER UNIT SC SCH (06:10)
[2024-11-29] MEDS ORDERED: HOME MED LIST COMPLETE! XX SCH (08:05)
[2024-11-29 12:46] VITALS: BP 106/54; O2SAT 98
[2024-11-29 14:52] VITALS: BP 103/51; TEMP 98.1; O2SAT 98
[2024-11-30] MEDS ORDERED: cefTRIAXone SOD 2 GM in DEXTROSE 5% (D5W) ADV/MINI-BAG 50 ML IV SCH
== END 2024-11-29 15:11 | disposition home or self-care (01) ==
LOC: M ED 20:14 → EDBD 20:14 → M ED INP 20:15
PROVIDERS: ADMIT Family Medicine; ATTEND Family Medicine
DX: R18.8 Other ascites (principal); K75.81 Nonalcoholic steatohepatitis (NASH); K74.60 Unspecified cirrhosis of liver; R14.0 Abdominal distension (gaseous); F39 Unspecified mood [affective] disorder; K21.9 Gastro-esophageal reflux disease without esophagitis; E11.9 Type 2 diabetes mellitus without complications; I50.32 Chronic diastolic (congestive) heart failure; J45.909 Unspecified asthma, uncomplicated; I48.0 Paroxysmal atrial fibrillation; I11.0 Hypertensive heart disease with heart failure; I35.2 Nonrheumatic aortic (valve) stenosis with insufficiency; R42 Dizziness and giddiness; R06.02 Shortness of breath; I95.0 Idiopathic hypotension; D50.9 Iron deficiency anemia, unspecified; Z91.048 Other nonmedicinal substance allergy status; Z88.1 Allergy status to other antibiotic agents; Z88.4 Allergy status to anesthetic agent; Z79.899 Other long term (current) drug therapy; Z79.2 Long term (current) use of antibiotics
CPT/HCPCS: 36415; 49083; 80048; 80076; 83605; 83690; 84145; 85025; 85610; 85730; 87040; 96374; 96375; 97116; 97161; 99285; G0378; J0696; J1815; J2405; P9047

== ENCOUNTER → 2025-02-01 | Outpatient (CLI) | payer MEDICARE, BC ==
[~2025-02-01] MED LIST changes: -AMIO200T49 PO; +AMIO200T54 PO; +SPIR100T3
[2025-02-01 09:00] VITALS: BP 128/59; TEMP 97.9; O2SAT 97
== END ==
LOC: M IRPRO 08:51
PROVIDERS: ATTEND Family Medicine
DX: K74.60 Unspecified cirrhosis of liver (principal)

== ENCOUNTER → 2025-02-22 | Outpatient (CLI) | payer MEDICARE, BC ==
[2025-02-22 11:15] VITALS: TEMP 98.2
[2025-02-22 11:41] VITALS: BP 107/52; O2SAT 99
[2025-02-22 11:45] VITALS: BP 115/53; O2SAT 99
[2025-02-22 11:49] VITALS: BP 107/47; O2SAT 99
[2025-02-22 11:53] VITALS: BP 118/52; O2SAT 98
[2025-02-22 12:00] VITALS: BP 136/94; O2SAT 97
== END ==
LOC: M IRPRO 10:38
PROVIDERS: ATTEND Family Medicine
DX: K74.60 Unspecified cirrhosis of liver (principal)
CPT/HCPCS: 49083; 96374; P9047

== ENCOUNTER → 2025-04-26 | Outpatient (CLI) | payer MEDICARE, BC | LOC: M RAD 15:25 | PROVIDERS: ATTEND Internal Medicine Medical Oncology | DX: N18.9 Chronic kidney disease, unspecified (principal) ==

== ENCOUNTER → 2025-05-11 | Outpatient (CLI) | payer MEDICARE, BC ==
[2025-05-11 10:07] VITALS: BP 111/60; O2SAT 98
[2025-05-11 10:16] VITALS: BP 105/48; O2SAT 98
[2025-05-11 10:19] VITALS: BP 99/39; O2SAT 97
[2025-05-11 10:21] VITALS: BP 105/54; O2SAT 98
== END ==
LOC: M IRPRO 09:10
PROVIDERS: ATTEND Family Medicine
DX: K74.60 Unspecified cirrhosis of liver (principal)
CPT/HCPCS: 49083; 96365; P9047

== ENCOUNTER → 2025-06-14 | Outpatient (CLI) | payer MEDICARE, BC | LOC: M PLAIMG 11:54 | PROVIDERS: ATTEND Family Medicine | DX: M19.021 Primary osteoarthritis, right elbow (principal) ==

== ENCOUNTER → 2025-06-18 | Outpatient (CLI) | payer MEDICARE, BC ==
[~2025-06-18] MED LIST changes: +ALDA50TA2 PO; +IBUP200C28 PO; +LIDO5TD TD; +METO1TAB87 PO; +RAME8TAB2 PO; -SPIR100T3; +SPIR100T3 PO
[2025-06-18 09:26] VITALS: TEMP 98.8
[2025-06-18 10:12] VITALS: BP 109/53; O2SAT 100
[2025-06-18 10:21] VITALS: BP 106/54; O2SAT 99
[2025-06-18 10:29] VITALS: BP 104/58; O2SAT 99
[2025-06-18 10:41] VITALS: BP 123/60; O2SAT 98
[2025-06-18 11:06] LABS: SOURCE, BODY FLUID ASCITES
[2025-06-18 11:07] LABS: APPEARANCE, BODY FLUID HAZY (CLEAR); ASCITES FL COLOR PALE YELLOW (COLORLESS)
== END ==
LOC: M IRPRO 09:20
PROVIDERS: ATTEND Family Medicine
DX: R18.8 Other ascites (principal)
CPT/HCPCS: 49083; 82042; 82945; 84157; 87116; 87206; 89051; 96365; P9047

== ENCOUNTER → 2025-06-27 | Outpatient (REF) | payer MEDICARE, BC ==
[~2025-06-27] MED LIST changes: -ALDA50TA2 PO; -LIDO5TD TD; -RAME8TAB2 PO
[2025-06-27 18:35] LABS: IRON (FE) 19.0 UG/DL (50-170); PERCENT SATURATION 5.9 % (13.2-45.0)
== END ==
LOC: M LAB REF 18:10
PROVIDERS: ATTEND Internal Medicine Nephrology
DX: N18.9 Chronic kidney disease, unspecified (principal); D63.1 Anemia in chronic kidney disease

== ENCOUNTER 2025-07-04 14:23 | Inpatient (IN) | payer MEDICARE, BC ==
[~2025-07-04] VITALS: Ht 157.5 cm; Wt 64.7 kg
[~2025-07-04 14:23] MED LIST changes: -METO1TAB87 PO
[2025-07-05] MEDS ORDERED: DEXTROSE 50% 50 ML SYRINGE IV PRN (12:20)
[2025-07-05] MEDS ORDERED: METOPROLOL TART 12.5 MG PER 1/2 TAB PO PRN (12:20)
[2025-07-05] MEDS ORDERED: GLUCOSE 4 GM CHEW PO PRN (12:20)
[2025-07-05] MEDS ORDERED: GLUCAGON INJ 1 MG VIAL SC PRN (12:20)
[2025-07-05] MEDS ORDERED: METO1TAB87 PO (12:40)
[2025-07-05 15:30] VITALS: BP 112/56; TEMP 97.8; O2SAT 100
[2025-07-05] MEDS: INSULIN LISPRO (NovoLOG) PER UNIT SC SCH ×2 (17:08→20:56)
[2025-07-05] MEDS: MIDODRINE 5 MG TAB PO SCH (17:09)
[2025-07-05] MEDS: SPIRONOLACTONE 50 MG TAB PO SCH (17:16)
[2025-07-05 20:00] VITALS: BP 100/51; TEMP 97.8; O2SAT 100
[2025-07-05] MEDS: SUCRALFATE 1 GM TAB PO SCH (20:54)
[2025-07-05] MEDS: PANTOPRAZOLE 40MG TAB PO SCH (20:54)
[2025-07-05] MEDS: busPIRone 5 MG TAB PO SCH (20:54)
[2025-07-05] MEDS: MONTELUKAST 10 MG TAB PO SCH (20:55)
[2025-07-05] MEDS: LIDOCAINE 5% PATCH TD SCH (20:56)
[2025-07-06 04:00] VITALS: BP 107/53; TEMP 97; O2SAT 97
[2025-07-06] MEDS: ACETAMINOPHEN 325 MG TAB PO PRN (04:11)
[2025-07-06 06:54] LABS: BASO # 0.0 10^3/uL (0.0-0.2); BASO % 0.5 % (0.0-1.0); EOS # 0.1 10^3/uL (0.0-0.5); EOS % 2.6 % (0.0-3.0); LYMPH # 0.8 10^3/uL (1.5-5.0); LYMPH % 20.6 % (24.0-44.0); MONO # 0.4 10^3/uL (0.0-0.8); MONO % 10.8 % (2.0-8.0); NEUTROPHILS # 2.5 10^3/uL (1.5-8.5); NEUTROPHILS % 65.2 % (36.0-66.0); PLATELET COUNT, AUTOMATED 130 10^3/uL (150-450)
[2025-07-06 07:30] LABS: ALT/SGPT 15.0 U/L (7.0-40); AST/SGOT 21.0 U/L (<34); CALCIUM LEVEL 8.0 MG/DL (8.3-10.6); CARBON DIOXIDE LEVEL 23.0 MMOL/L (20-31); CHLORIDE LEVEL 106.0 MMOL/L (98-107); CREATININE FOR GFR 1.41 MG/DL (0.55-1.30); GLOMERULAR FILTRATION RATE 36.6 (>32); POTASSIUM SERUM 4.5 MMOL/L (3.5-5.1); SODIUM LEVEL 138.0 MMOL/L (136-145)
[2025-07-06] MEDS: LanTUS (INSULIN GLARGINE INJ) 1 UNITS/0.01 ML SC SCH (08:52)
[2025-07-06] MEDS: TORSEMIDE 20 MG TAB PO SCH (08:55)
[2025-07-06 12:00] VITALS: BP 138/63; TEMP 97; O2SAT 100
[2025-07-06 19:54] VITALS: BP 119/60; TEMP 97.7; O2SAT 99
[2025-07-06] MEDS: RAMELTEON 8 MG TAB PO SCH (21:19)
[2025-07-07 04:00] VITALS: BP 130/62; TEMP 97.3; O2SAT 96
[2025-07-07 08:09] VITALS: BP 126/60
[2025-07-07 12:00] VITALS: BP 108/56; TEMP 98; O2SAT 100
[2025-07-07 16:52] VITALS: BP 123/58
[2025-07-07] MEDS: ONDANSETRON 4MG ORAL DISINTEGRATING TAB PO PRN (18:36)
[2025-07-07 20:00] VITALS: BP 128/65; TEMP 97.8; O2SAT 99
[2025-07-08 04:00] VITALS: BP 103/51; TEMP 97.5; O2SAT 100
[2025-07-08 08:29] VITALS: BP 120/58
[2025-07-08 12:00] VITALS: BP 130/60; TEMP 97.7; O2SAT 99
[2025-07-08 20:00] VITALS: BP 110/54; TEMP 97.7; O2SAT 100
[2025-07-09 04:00] VITALS: BP 115/57; TEMP 97.2; O2SAT 97
[2025-07-09 11:56] LABS: BASO # 0.0 10^3/uL (0.0-0.2); BASO % 0.3 % (0.0-1.0); EOS # 0.1 10^3/uL (0.0-0.5); EOS % 1.6 % (0.0-3.0); LYMPH # 0.5 10^3/uL (1.5-5.0); LYMPH % 13.7 % (24.0-44.0); MONO # 0.4 10^3/uL (0.0-0.8); MONO % 11.1 % (2.0-8.0); NEUTROPHILS # 2.8 10^3/uL (1.5-8.5); NEUTROPHILS % 73.0 % (36.0-66.0); PLATELET COUNT, AUTOMATED 139 10^3/uL (150-450)
[2025-07-09 12:00] VITALS: BP 117/55; TEMP 97.5; O2SAT 100
[2025-07-09 12:27] LABS: ALT/SGPT 23.0 U/L (7.0-40); AST/SGOT 23.0 U/L (<34); CALCIUM LEVEL 8.5 MG/DL (8.3-10.6); CARBON DIOXIDE LEVEL 23.0 MMOL/L (20-31); CHLORIDE LEVEL 105.0 MMOL/L (98-107); CREATININE FOR GFR 1.38 MG/DL (0.55-1.30); GLOMERULAR FILTRATION RATE 37.5 (>32); POTASSIUM SERUM 4.7 MMOL/L (3.5-5.1); SODIUM LEVEL 137.0 MMOL/L (136-145)
[2025-07-09 20:00] VITALS: BP 112/68; TEMP 97.8; O2SAT 92
[2025-07-10 04:00] VITALS: BP 123/80; TEMP 97.1; O2SAT 95
[2025-07-10] MEDS: METOCLOPRAMIDE 10 MG TAB PO ONE (10:32)
[2025-07-10 12:00] VITALS: BP 106/53; TEMP 97.8; O2SAT 98
[2025-07-10 16:16] VITALS: BP 110/54; TEMP 97.7; O2SAT 99
[2025-07-10] MEDS: METOCLOPRAMIDE 5 MG TAB PO ONE (17:41)
[2025-07-10 20:00] VITALS: BP 109/53; TEMP 97.9; O2SAT 94
[2025-07-11 04:00] VITALS: BP 100/52; TEMP 97.8; O2SAT 96
[2025-07-11 08:39] VITALS: BP 119/55
[2025-07-11 12:00] VITALS: BP 122/54; TEMP 97.3; O2SAT 97
[2025-07-11 16:28] VITALS: BP 110/59
[2025-07-11 20:00] VITALS: BP 116/57; TEMP 97.8; O2SAT 99
[2025-07-12] VITALS (7 sets, daily range): BP systolic 92–114; BP diastolic 51–65; TEMP 97.3–98.2; O2SAT 95–100
[2025-07-12 12:32] LABS: BASO # 0.0 10^3/uL (0.0-0.2); BASO % 0.7 % (0.0-1.0); EOS # 0.0 10^3/uL (0.0-0.5); EOS % 0.7 % (0.0-3.0); LYMPH # 0.6 10^3/uL (1.5-5.0); LYMPH % 14.0 % (24.0-44.0); MONO # 0.4 10^3/uL (0.0-0.8); MONO % 8.1 % (2.0-8.0); NEUTROPHILS # 3.5 10^3/uL (1.5-8.5); NEUTROPHILS % 76.3 % (36.0-66.0); PLATELET COUNT, AUTOMATED 171 10^3/uL (150-450)
[2025-07-12 13:03] LABS: ALT/SGPT 21.0 U/L (7.0-40); AST/SGOT 18.0 U/L (<34); CALCIUM LEVEL 8.3 MG/DL (8.3-10.6); CARBON DIOXIDE LEVEL 25.0 MMOL/L (20-31); CHLORIDE LEVEL 101.0 MMOL/L (98-107); CREATININE FOR GFR 1.32 MG/DL (0.55-1.30); GLOMERULAR FILTRATION RATE 39.6 (>32); POTASSIUM SERUM 4.6 MMOL/L (3.5-5.1); SODIUM LEVEL 133.0 MMOL/L (136-145)
[2025-07-12] MEDS: TORSEMIDE 20 MG TAB PO ONE (13:28)
[2025-07-12] MEDS: LIDOCAINE 5% PATCH TD SCH (22:25)
[2025-07-13 04:00] VITALS: BP 110/55; TEMP 97.1; O2SAT 95
[2025-07-13] MEDS: SPIRONOLACTONE 50 MG TAB PO SCH (05:32)
[2025-07-13] MEDS: TORSEMIDE 20 MG TAB PO SCH (06:56)
[2025-07-13 12:00] VITALS: BP 115/59; TEMP 97.4; O2SAT 100
[2025-07-13] MEDS ORDERED: ONDA-282 PO (17:27)
[2025-07-13] MEDS ORDERED: RAME8TAB2 PO (17:27)
[2025-07-13] MEDS ORDERED: MIDO5TA PO (17:27)
[2025-07-13] MEDS ORDERED: ALDA50TA2 PO (17:27)
[2025-07-13] MEDS ORDERED: LIDO5TD TD (17:27)
[2025-07-13] MEDS ORDERED: TORS20TA2 PO (17:27)
[2025-07-13] MEDS ORDERED: TOUJ300I2 SC (17:27)
[2025-07-13 20:45] VITALS: BP 124/56; TEMP 97.6; O2SAT 95
[2025-07-14 03:39] VITALS: BP 123/58; TEMP 98.7; O2SAT 97
[2025-07-14 08:00] VITALS: BP 118/67
== END 2025-07-14 10:55 | disposition home health service (06) | DRG 560 ==
LOC: M PM&R 07-05 15:20
PROVIDERS: ADMIT Physical Medicine & Rehabilitation; ATTEND Physical Medicine & Rehabilitation
PROC: 0W9G3ZZ Drainage of Peritoneal Cavity, Percutaneous Approach (ICD-10-PCS; principal; 2025-07-10 13:30)
DX: S32.431D Displaced fracture of anterior column [iliopubic] of right acetabulum, subsequent encounter for fracture with routine healing (principal); I50.32 Chronic diastolic (congestive) heart failure; R18.8 Other ascites; E11.9 Type 2 diabetes mellitus without complications; I48.91 Unspecified atrial fibrillation; K75.81 Nonalcoholic steatohepatitis (NASH); K21.9 Gastro-esophageal reflux disease without esophagitis; N18.9 Chronic kidney disease, unspecified; I35.0 Nonrheumatic aortic (valve) stenosis; D50.9 Iron deficiency anemia, unspecified; D63.8 Anemia in other chronic diseases classified elsewhere; F39 Unspecified mood [affective] disorder; G25.81 Restless legs syndrome; K27.9 Peptic ulcer, site unspecified, unspecified as acute or chronic, without hemorrhage or perforation; Z66 Do not resuscitate; K74.69 Other cirrhosis of liver; R29.6 Repeated falls; R00.1 Bradycardia, unspecified; R11.2 Nausea with vomiting, unspecified; Z79.899 Other long term (current) drug therapy; G47.00 Insomnia, unspecified; I95.1 Orthostatic hypotension; Z74.1 Need for assistance with personal care; Z74.09 Other reduced mobility; Z79.4 Long term (current) use of insulin; Z88.1 Allergy status to other antibiotic agents; Z91.048 Other nonmedicinal substance allergy status; Z88.8 Allergy status to other drugs, medicaments and biological substances

== ENCOUNTER → 2025-07-23 | Outpatient (CLI) | payer MEDICARE, BC ==
[~2025-07-23] MED LIST changes: +ACETAMINOPHEN 325 MG TAB PO PRN; +ALDA50TA2 PO; +LIDO5TD TD; +METO1TAB87 PO; +RAME8TAB2 PO
[2025-07-23 11:41] VITALS: BP 116/63; O2SAT 96
== END ==
LOC: M IRPRO 10:06
PROVIDERS: ATTEND Family Medicine
DX: R18.8 Other ascites (principal); K74.60 Unspecified cirrhosis of liver